=== PATIENT | female | born 1945 | race Caucasian/White ===

== ENCOUNTER 2016-11-16 18:25 | Inpatient (IN) ==
[2016-11-16] MEDS: NS 1,000 ML IV SCH ×2 (18:35→22:52)
[2016-11-16] MEDS ORDERED: ACETAMINOPHEN 500 MG TABLET PO PRN ×2 (18:59→20:59)
--- NOTE | 2016-11-16 19:05 | Emergency Department Report ---
Altered Mental Status HPI - General Chief Complaint: Altered Mental Status Stated Complaint: decreased loc - History of Present Illness HPI narrative: Patient presented by EMS with complaint by her family that she has had a cough for several days, then tonight had a sudden decreased level of consciousness. Patient was talking normally, and then around 5 PM had the sudden onset of decreased level of consciousness and was not able to verbalize to her family. When EMS arrived, they found the patient with minutes level of responsiveness, fever of 102, and no other distresses. complaint: altered mental status Onset (ago): hour(s) Timing confirmed by: family member Severity: severe Consistency of symptoms: constant Context: unknown Associated symptoms: cough, fever - Related Data Home Medications Medication Instructions Recorded Confirmed Zonisamide 200 mg PO HS #0 05/09/14 11/16/16 Warfarin 1.5 mg PO Q3D 11/16/16 11/16/16 Warfarin [Coumadin] 3 mg PO Q2D 11/16/16 11/16/16 Allergies Allergy/AdvReac Type Severity Reaction Status Date / Time ibuprofen Allergy Intermediate GI BLEEDING Verified 11/16/16 18:44 aspirin Allergy Unknown BLEEDING Verified 11/16/16 20:00 Review of Systems All systems: reviewed and negative except as stated Constitutional: Reports: fever Respiratory: Reports: cough Neurological: Reports: confusion PFSH Metabolic: diabetes (type II, diet controlled), hypertension Cardiac: other, DENIES: angina Respiratory: pulmonary embolus, DENIES: COPD, asthma GI: DENIES: ulcers Female: pyelonephritis, renal failure Neurological: seizures Musculoskeletal: DENIES: rheumatoid arthritis Psychological: dementia Surgical History: General: exploratory laparotomy, other (colonoscopy). Reproductive/: hysterectomy Physical Exam - Limitations Limitations: altered mental status - General General appearance: in no apparent distress, lethargic - Normal Exams: Head:: Normocephalic without trauma Eyes:: Pupils are PERRLA w/ EOMI, No scleral icterus, irritation, or foreign bodies noted ENMT:: No facial trauma, nasal exudates, pharyngeal erythema, or exudates are noted Neck:: Full range of motion, without adenopathy, JVD, bruits or thyromegaly Cardiovascular:: Regular rate and rhythm, without murmur or gallop, Pulses 2+ all extremities, capillary refill, <2 seconds all extremities Abdomen:: Bowel sounds positive, soft, non-tender, non-distended, no hepatosplenomegaly, masses or bruits noted Lymphatic:: No lymphadenopathy, or lymphedema noted Musculoskeletal:: No tenderness, or deformity noted, good range of motion, all extremities Integumentary:: No rashes, hives, or bruising noted, hair and nails, without abnormality Neurological:: Patient is alert, and oriented, cranial nerves, motor/sensory/ cerebellar, exams w/o gross deficits, to observation Psychiatric:: Patient exhibits, appropriate attention, emotion and affect - Chest Chest inspection: Present: normal inspection (course rhonchi bilaterally, no wheezes no crackles), symmetric chest wall rise. Absent: tenderness, abscess Course Course Narrative: Patient given Tylenol 1000 mg by mouth, 1 L normal saline IV fluid bolus Vital Signs Temperature 101 F H 11/16/16 18:36 Pulse Rate 110 H 11/16/16 18:36 Respiratory Rate 25 H 11/16/16 18:36 Blood Pressure 134/72 11/16/16 18:36 Pulse Oximetry 100 11/16/16 18:36 Temperature 101 F H 11/16/16 18:36 Pulse Rate 110 H 11/16/16 18:36 Respiratory Rate 25 H 11/16/16 18:36 Blood Pressure 134/72 11/16/16 18:36 Pulse Oximetry 100 11/16/16 18:36 Altered Mental Status - [facility] Narrative Medical decision making narrative: CBC is essentially normal, CMP shows mild elevation in urine, creatinine 1.2. Pro-calcitonin is normal, lactate pending at this time. Chest x-ray shows mild right lower lobe consolidation pericardium with mild effusion. Patient is started on IV Rocephin 1 g IV, Zithromax as ordered but not given in the ER. Case is discussed with Dr. Monge, will make the patient admission for a right lower lobe pneumonia with servers Patient is also given acetaminophen 1 g IV, Toradol 30 mg IV, and INR is ordered in the ER. - Lab Data Result diagrams: 11/16/16 18:43 11/16/16 18:43 Lab Results 11/16/16 Range/Units 18:43 WBC 10.1 (4.5-11.0) T/MM3 RBC 5.34 H (4.00-5.20) M/MM3 Hgb 14.6 (12-16) GM/DL Hct 46.7 H (36-46) % MCV 87.5 (80-100) UM3 MCH 27.3 (26-34) UUG MCHC 31.3 (31-37) GM/DL RDW Std Deviation 54.2 H (36.9-50.2) FL Plt Count 80 L (130-400) T/MM3 MPV 10.8 (9.4-12.4) UM3 Immature Gran % (Auto) 0.3 (0.0-0.5) % Neut % (Auto) 77.6 H (33-66) % Lymph % (Auto) 13.3 L (23-45) % [place] % (Auto) 7.9 (0-9.0) % Eos % (Auto) 0.6 (0-4) % Baso % (Auto) 0.3 (0-2) % Neut # 7.8 H (1.8-7.7) T/MM3 Lymph # 1.3 (1-4.8) T/MM3 [place] # 0.8 (0-0.8) T/MM3 Eos # 0.1 (0-0.5) T/MM3 Baso # 0.0 (0-0.2) T/MM3 Abs Immat Gran (auto) 0.03 (0.00-0.03) T/MM3 Critical Care Time Critical Care Time: Yes Total Critical Care Time: 40 Attestation: Patient required vehicle care for pneumonia with serves, tachycardia, hypoxemia , fever, and altered level of consciousness. Disposition Clinical Impression: Right lower lobe pneumonia, SIRS (systemic inflammatory response syndrome) Disposition: 02 To [facility] Acute Care Condition: Improved Prescriptions: No Action Warfarin [Coumadin] 3 mg PO Q2D Warfarin 1.5 mg PO Q3D Zonisamide 200 mg PO HS #0 Referrals: Jaiden Chairez II, MD [Family Provider] - - Seen By: physician
[2016-11-16] MEDS ORDERED: CEFTRIAXONE 2 GM INJECTION IV SCH (20:00)
[2016-11-16] MEDS ORDERED: AZITHROMYCIN IV 500 MG in NS 250ml 250 ML IV SCH (20:00)
[2016-11-16] MEDS ORDERED: ACETAMINOPHEN IV 1,000 MG/100 ML VIAL IV ONE (20:05)
[2016-11-16] MEDS ORDERED: NS 1,000 ML IV SCH (20:15)
[2016-11-16] MEDS ORDERED: WARFARIN 3 MG TABLET PO SCH (20:30)
--- NOTE | 2016-11-16 20:48 | History & Physical Report ---
History of Present Illness Date: Chief complaint: Depressed LOC HPI: 72 year old female with a known history of dementia presents the to ED tonight with reports of decreased LOC. She lives at home with her family. EMS was called out to the house due to the decreased LOC. She was noted to be febrile there with a temp of 102. She apparently has had a cough and fever for a few days now. Upon arrival, she was noted to be hypoxemic. She is presently on 2L NC02 with sats in the upper 90s by report upon admit to the floor. BP is stable. A CXR shows a right middle lobe infiltrate. She has been given rocephin and azithromycin. A lactate and procalcitonin are not elevated. She has also been given IVF. She is now in the process of admission to the medical floor for further eval and treatment. She meets sepsis criteria based on temp, HR, RR. [facility] Patient Stated Medical History Dementia Yes Dysphagia Yes Cardiac Arrhythmia Yes Hypertension Yes Diabetes Mellitus Type 2 Yes: DIET Other GI Yes: COLOSTOMY Hx Urinary Tract Infection Yes Clotting Problems Yes Sepsis Yes Surgical History: General: exploratory laparotomy, other (colonoscopy). Reproductive/: hysterectomy Smoking status: Never smoker Medications Home Medications Medication Instructions Recorded Confirmed Type Zonisamide 200 mg PO HS #0 05/09/14 11/16/16 History Warfarin 1.5 mg PO Q3D 11/16/16 11/16/16 History Warfarin [Coumadin] 3 mg PO Q2D 11/16/16 11/16/16 History Allergies Allergy/AdvReac Type Severity Reaction Status Date / Time ibuprofen Allergy Intermediate GI BLEEDING Verified 11/16/16 18:44 aspirin Allergy Unknown BLEEDING Verified 11/16/16 20:00 Exam Vital Signs: Temp Pulse Resp BP Pulse Ox 101 F H 110 H 25 H 134/72 100 11/16/16 18:36 11/16/16 18:36 11/16/16 18:36 11/16/16 18:36 11/16/16 18:36 Height: 1.68 m Weight: 80.2 kg - Constitutional Present: obese, disheveled - Routine HEENT Exam Head: Present: normocephalic, atraumatic - Routine Neck Exam Present: supple. Absent: JVD - Routine Respiratory Exam Present: decreased breath sounds. Absent: accessory muscle use - Routine Cardiovascular Exam Present: RRR, S1, S2 - Routine Abdominal Exam Present: soft, normoactive bowel sounds. Absent: tenderness, non distended - Routine Extremities Exam Absent: edema - Routine Skin Exam Absent: rash - Routine Neurological Exam Nonverbal Results - Labs CBC & Chem 7: 11/16/16 18:43 11/16/16 18:43 Labs: Short CBC 11/16/16 Range/Units 18:43 WBC 10.1 (4.5-11.0) T/MM3 Hgb 14.6 (12-16) GM/DL Hct 46.7 H (36-46) % Plt Count 80 L (130-400) T/MM3 BMP 11/16/16 18:43 Sodium 152 H Potassium 3.4 L Chloride 117 H Carbon Dioxide 23 BUN 19.0 H Creatinine 1.2 Glucose 165 H Calcium 9.3 Liver Function 11/16/16 Range/Units 18:43 Total Bilirubin 1.00 (0.20-1.30) MG/DL AST 27 (14-36) U/L ALT 33 (9-52) U/L Alkaline Phosphatase 104 (38-126) U/L Albumin 3.9 (3.5-5.0) G/DL Urine 11/16/16 Range/Units 19:46 Urine Color Yellow (YELLOW) Urine Clarity Sl cloudy Urine pH 5.5 (5.0-8.0) Ur Specific [place] 1.025 (1.015-1.025) Urine Protein 2+ A (NEGATIVE) Urine Glucose (UA) Negative (NEGATIVE) Assessment and Plan Assessment and Plan: 1. Sepsis in the setting of acute community acquired pneumonia of the right middle/lower lobe--present on admit 2. Metabolic encephalopathy secondary to above, on chronic dementia--present on admit 3. History of PE on coumadin therapy 4. Dementia 5. Seizure disorder on chronic AED therapy 6. DM2 by documentation Plan Patient will be placed under full admit status to the medical floor. Will plan to continue rocephin and azithromycin, need to monitor culture data. I have asked for an INR now. Will repeat labs in AM. Continue coumadin, home AED regimen. Will provide level 1 SSI protocol, and follow accuchecks. Diabetic diet. A daughter is present at the bedside and identifies herself as DPOA. She desires full code status. Sepsis Assessment - Evaluation Confirmed Suspected Infection: Yes SIRS Criteria: temperature > or equal to 100.4, pulse > or equal to 90 beats/ minute Severe Sepsis: none seen - Focused Exam Vital Signs Temp Pulse Resp BP Pulse Ox 11/16/16 18:36 101 F H 110 H 25 H 134/72 100 Hospital Course Summary Disclaimer: The visit summary below is not to be considered part of the above Progress Note.
[2016-11-16] MEDS ORDERED: GLUCOSE ORAL GEL 40% 37.5gm PO PRN (20:59)
[2016-11-16] MEDS ORDERED: ONDANSETRON 4 MG/2 ML INJECTION IVP PRN (20:59)
[2016-11-16] MEDS ORDERED: DEXTROSE 50% SYRINGE 50ml (1 AMP) IVP PRN (20:59)
[2016-11-16] MEDS ORDERED: ZONISAMIDE 100 MG CAPSULE PO SCH (22:00)
--- NOTE | 2016-11-17 07:46 | XRay Report ---
Indication: FEVER, COUGH PROCEDURE: XR chest 1V: Encounter: Initial Comparison: May 09, 2014 Findings: Mild elevation of the right hemidiaphragm. Faint airspace opacity in both lower lobes. Upper lung edmondson are clear. No pneumothorax. Heart size is stable. Mediastinal contours and pulmonary vascularity are stable. Impression: Lower lobe airspace disease could be due to pneumonia, aspiration or atelectasis. .
--- NOTE | 2016-11-17 07:49 | CT Scan Report ---
Indication: DECREASED LOC, PROCEDURE: CT head/brain wo con: Encounter: Initial Comparison: Head CT dated May 09, 2014 Technique: Axial CT images through the head were performed without contrast. Iterative Reconstruction dose reducing technique was utilized. FINDINGS: Mild generalized atrophy. The ventricles are of normal size, shape, and contour for the patient's age. There are extensive areas of low attenuation in the white matter which most likely represent changes from chronic microvascular ischemia. The brainstem, cerebellum, and cerebral hemispheres otherwise have a normal morphology and CT attenuation. There is no evidence of midline displacement. No hemorrhage, signs of acute territorial stroke, mass effect, mass lesions, or edema is evident. The visualized portions of the skull base, midface, and calvarium demonstrate no abnormality. Chronic appearing right maxillary sinusitis. The tympanic and mastoid cavities appear normal. IMPRESSION: No acute intracranial abnormality or hemorrhage. Chronic right maxillary sinusitis. There is a preliminary report by [facility]. .
--- NOTE | 2016-11-17 07:56 | XRay Report ---
Indication: pneumonia PROCEDURE: XR chest 1V: Encounter: Initial Comparison: November 16, 2016 Findings: Chest is stable in appearance with some hazy bibasilar infiltrates. Mild motion artifact. No pneumothorax. New small pleural effusions. Heart size and mediastinal contours are stable. Pulmonary vascularity is indistinct due to the motion artifact. Impression: Continued lower lobe infiltrates with new small effusions. .
[2016-11-17] MEDS: NS 1,000 ML IV SCH ×2 (07:57→13:17)
[2016-11-17] MEDS ORDERED: BISACODYL 10 MG SUPPOSITORY RECTALLY PRN (12:31)
[2016-11-17] MEDS: 1/2 NS with KCL 20mEq 1,000 ML IV SCH (13:15)
[2016-11-17] MEDS ORDERED: IPRATROPIUM/ALBUTEROL 2.5mg-0.5mg/3ml NEB AEROSOL SCH (15:00)
[2016-11-17] MEDS ORDERED: ACETAMINOPHEN 325 MG TABLET PO PRN (16:30)
--- NOTE | 2016-11-17 16:59 | Pharmacy Consult ---
Pharmacy Consult-Warfarin - Laboratory Information 11/17/16 04:44 INR 2.12 H - Consult Information 71 y.o. Female with a history of A. Fib and chronic anticoagulation with Warfarin. goal INR= 2.0 to 3.0. Will give Warfarin 2 mg po today. Pharmacy will monitor and adjust as needed. Thank you for the consult, Lucrecia Rogers RPh
[2016-11-17] MEDS: WARFARIN 2 MG TABLET PO ONE ×2 (18:00→20:16)
[2016-11-17] MEDS: INSULIN ASPART 100unit/ml INJECTION SQ PRN (18:00)
--- NOTE | 2016-11-17 19:25 | Progress Note ---
Subjective: F/U: Sepsis, pneumonia Resting in bed. Nursing reports pt able to take oral in well (when awake and alert). Did have episode of 'freezing up' - stopped eating with mouth open and stared off into space, lasted about 50 seconds. Breathing looks more comfortable this evening as compared to earlier. Lungs much less congested. Objective Vital signs: Temp Pulse Resp BP Pulse Ox 100.1 F 109 H 20 125/65 97 11/17/16 16:00 11/17/16 16:00 11/17/16 16:00 11/17/16 16:00 11/17/16 15:01 Weight: 83.5 kg - Constitutional Present: mild distress, well nourished, well developed, obese, disheveled - Routine HEENT Exam Head: Present: normocephalic, atraumatic Eye: Present: EOMI ENT: Present: mucous membranes dry - Routine Respiratory Exam Present: decreased breath sounds (Improving air movement. Less effort and work for breathing. ), prolonged expiratory phase - Routine Cardiovascular Exam Present: RRR - Routine Abdominal Exam Present: soft, normoactive bowel sounds, non distended, non tender - Routine Extremities Exam Present: no edema, non tender. Absent: cyanosis, clubbing - Routine Skin Exam Present: intact, dry, warm - Routine Psychiatric Exam Present: unable to assess (Somnolent at my exam. ) Results - Labs CBC & Chem 7: 11/17/16 04:44 11/17/16 04:44 Labs: Short CBC 11/17/16 Range/Units 04:44 WBC 9.2 (4.5-11.0) T/MM3 Hgb 13.7 (12-16) GM/DL Hct 44.7 (36-46) % Plt Count 80 L (130-400) T/MM3 BMP 11/17/16 04:44 Sodium 155 H Potassium 3.4 L Chloride 120 H Carbon Dioxide 22 BUN 16.0 Creatinine 1.1 Glucose 123 H Calcium 8.7 Assessment and Plan (1) Sepsis Current visit: Yes Status: Acute (2) Pneumonia Current visit: Yes Status: Acute (3) Acute respiratory insufficiency Current visit: Yes Status: Acute (4) Encephalopathy Current visit: Yes Status: Acute (5) Hypernatremia Current visit: Yes Status: Acute POA (6) Hypokalemia Current visit: Yes Status: Acute POA (7) Type II diabetes mellitus Current visit: Yes Status: Chronic (8) HTN (hypertension) Current visit: Yes Status: Chronic (9) Hyperlipidemia Current visit: Yes Status: Chronic (10) Paroxysmal atrial fibrillation Current visit: Yes Status: Chronic (11) Anticoagulated on Coumadin Current visit: Yes Status: Chronic (12) Seizure disorder Current visit: Yes Status: Chronic (13) Obesity (BMI 30-39.9) Current visit: Yes Status: Chronic DVT Prophylaxis: Coumadin Resuscitation Status: Full Code Assessment and Plan: Continue Rocephin and azithromycin for antimicrobial coverage. Change IVF to 1/2NS with 20 KCl for hydration and to help normalize sodium and potassium. Speech consult to check swallow in light of encephalopathy. Continue with supplemental O2, weaning as able. Daily INR due to Coumadin use and sepsis - Pharm to manage. Recheck BMP and CBC in am due to sepsis and IVF use. Will need PT/OT to help strength, once encephalopathy improves . Sepsis Assessment - Evaluation Sepsis screening result: No Definite Risk SIRS Criteria: temperature > or equal to 100.4, pulse > or equal to 90 beats/ minute Severe Sepsis: none seen - Focused Exam Vital Signs Temp Pulse Resp BP Pulse Ox 11/17/16 16:00 100.1 F 109 H 20 125/65 11/17/16 15:01 20 97 11/17/16 12:06 18 92 11/17/16 12:00 101 F H 98 129/58 97 11/17/16 11:39 101.8 F H 103 H 24 93 11/17/16 08:00 101.8 F H 103 H 24 149/62 H 93 Respiratory exam: Present: decreased breath sounds. Absent: accessory muscle use Cardiovascular exam: Present: RRR, S1, S2 Hospital Course Summary Disclaimer: The visit summary below is not to be considered part of the above Progress Note. Hospital Course: 11/16 Admit Patient will be placed under full admit status to the medical floor. Will plan to continue Rocephin and azithromycin, need to monitor culture data. I have asked for an INR now. Will repeat labs in AM. Continue Coumadin, home AED regimen. Will provide level 1 SSI protocol, and follow accuchecks. Diabetic diet. A daughter is present at the bedside and identifies herself as DPOA. She desires full code status. 11/17 Resting in bed. Nursing reports pt able to take oral in well (when awake and alert). Did have episode of 'freezing up' - stopped eating with mouth open and stared off into space, lasted about 50 seconds. Breathing looks more comfortable this evening as compared to earlier. Lungs much less congested. Continue Rocephin and azithromycin for antimicrobial coverage. Change IVF to 1/2NS with 20 KCl for hydration and to help normalize sodium and potassium. Speech consult to check swallow in light of encephalopathy. Continue with supplemental O2, weaning as able. Daily INR due to Coumadin use and sepsis - Pharm to manage. Recheck BMP and CBC in am due to sepsis and IVF use. Will need PT/OT to help strength, once encephalopathy improves .
[2016-11-17] MEDS: IPRATROPIUM/ALBUTEROL 2.5mg-0.5mg/3ml NEB AEROSOL PRN (19:37)
[2016-11-17] MEDS ORDERED: CEFTRIAXONE 1 G in NS 100 ML IV SCH (20:00)
[2016-11-17] MEDS ORDERED: CEFTRIAXONE 2 GM INJECTION IV SCH (20:00)
[2016-11-17] MEDS: AZITHROMYCIN IV 500 MG in NS 250ml 250 ML IV SCH (20:55)
[2016-11-18] MEDS: 1/2 NS with KCL 20mEq 1,000 ML IV SCH (04:46)
[2016-11-18] MEDS: IPRATROPIUM/ALBUTEROL 2.5mg-0.5mg/3ml NEB AEROSOL PRN (07:19)
--- NOTE | 2016-11-18 08:29 | Pharmacy Consult ---
Pharmacy Consult-Warfarin - Laboratory Information 11/17/16 11/17/16 11/18/16 04:44 20:36 04:29 INR 2.12 H 1.66 H 1.51 H - Consult Information Warfarin 2 mg dose attempted yesterday but not given (DLOC). Ms Jacques to be placed on enoxaparin today. Will attempt to give 3mg dose today,. Will continue to monitor and adjust accordingly. Thank you.
[2016-11-18] MEDS: ENOXAPARIN 80 MG/0.8 ML INJECTION SQ SCH ×2 (08:54→22:09)
[2016-11-18] MEDS: WARFARIN 3 MG TABLET PO SCH ×2 (08:54→11:07)
[2016-11-18] MEDS: POTASSIUM CHLORIDE INJ 20 MEQ in D5W 1,000 ML IV SCH (09:59)
--- NOTE | 2016-11-18 10:12 | Progress Note ---
Subjective: Fatimah is laying in bed watching TV this morning. She is alert and does respond to questions but is confused. She does state that she has pain but does not state where she is hurting. Is on 1L O2 per NC. Is in NAD at this time. She has been refusing her medication per nursing staff and did miss last nights dose of Warfarin. They did attempt to give this morning but she had refused again. <Mali Castaneda - 11/18/16 10:21> Objective Vital signs: Temp Pulse Resp BP Pulse Ox 96.4 F L 86 18 115/64 96 11/18/16 07:28 11/18/16 07:28 11/18/16 07:28 11/18/16 07:28 11/18/16 07:28 <Abhilash Hernandes - 11/18/16 14:11> Temp Pulse Resp BP Pulse Ox 96.4 F L 86 18 115/64 96 11/18/16 07:28 11/18/16 07:28 11/18/16 07:28 11/18/16 07:28 11/18/16 07:28 <Mali Castaneda Bernice - 11/18/16 10:21> Weight: 84.3 kg <Mali Castaneda 11/18/16 10:21> - Constitutional Present: no acute distress, well nourished, well developed, obese <Mali Castaneda 11/18/16 10:21> - Routine HEENT Exam Eye: Present: EOMI, PERRL <ShaniquareddMali Bernice 11/18/16 10:21> ENT: Present: mucous membranes moist, oropharynx clear, dentition normal, external ear normal <TonyaMali Queen 11/18/16 10:21> - Routine Respiratory Exam Present: decreased breath sounds (but does not have great inspiratory effort despite encouragement. No respiratory distress) <ShaniquareddMali Queen 11/18/16 10: 21> - Routine Cardiovascular Exam Present: RRR, S1, S2 <ShaniquareddMali Queen 11/18/16 10:21> - Routine Abdominal Exam Present: soft, normoactive bowel sounds, non distended. Absent: tenderness < ShaniquareddMali Bernice 11/18/16 10:21> - Routine Extremities Exam Present: no edema, pulses intact, normal capillary refill. Absent: edema < Mali Castaneda N - 11/18/16 10:21> - Routine Skin Exam Present: intact, warm. Absent: rash <Mali Castaneda N - 11/18/16 10:21> - Routine Neurological Exam Present: alert, altered mental status <Mali Castaneda - 11/18/16 10:21> - Routine Lymphatic Exam Lymphatic: Present: adenopathy <Mali Castaneda N - 11/18/16 10:21> - Routine Psychiatric Exam Present: normal affect <Mali Castaneda N - 11/18/16 10:21> Results - Labs CBC & Chem 7: 11/18/16 04:29 11/18/16 04:29 <Abhilash Hernandes D - 11/18/16 14:11> Labs: Short CBC 11/18/16 Range/Units 04:29 WBC 7.7 (4.5-11.0) T/MM3 Hgb 11.4 L D (12-16) GM/DL Hct 37.2 D (36-46) % Plt Count 75 L (130-400) T/MM3 [facility] 11/18/16 04:29 Sodium 156 H Potassium 3.5 L Chloride 123 H Carbon Dioxide 23 BUN 16.0 Creatinine 1.2 Glucose 90 Calcium 8.7 <Abhilash Hernandes D - 11/18/16 14:11> Short CBC 11/18/16 Range/Units 04:29 WBC 7.7 (4.5-11.0) T/MM3 Hgb 11.4 L D (12-16) GM/DL Hct 37.2 D (36-46) % Plt Count 75 L (130-400) T/MM3 [facility] 11/18/16 04:29 Sodium 156 H Potassium 3.5 L Chloride 123 H Carbon Dioxide 23 BUN 16.0 Creatinine 1.2 Glucose 90 Calcium 8.7 <Mali Castaneda N - 11/18/16 10:21> Assessment and Plan (1) Sepsis Current visit: Yes Status: Acute (2) Pneumonia Current visit: Yes Status: Acute (3) Acute respiratory insufficiency Current visit: Yes Status: Acute (4) Encephalopathy Current visit: Yes Status: Acute (5) Hypernatremia Current visit: Yes Status: Acute (6) Hypokalemia Current visit: Yes Status: Acute (7) Type II diabetes mellitus Current visit: Yes Status: Chronic (8) HTN (hypertension) Current visit: Yes Status: Chronic (9) Hyperlipidemia Current visit: Yes Status: Chronic (10) Paroxysmal atrial fibrillation Current visit: Yes Status: Chronic (11) Anticoagulated on Coumadin Current visit: Yes Status: Chronic (12) Seizure disorder Current visit: Yes Status: Chronic (13) Obesity (BMI 30-39.9) Current visit: Yes Status: Chronic <Abhilash Hernandes - 11/18/16 14:11> Assessment and Plan: Have independently interviewed and examined pt. Chart reviewed. Case discussed with my SIMULATION SPECIALIST. Care plan developed with my supervision; agree with above (and below, as WebMD puts this narrative in an odd place). Resting in bed. Awake and will make eye contact. Non-verbal. Follows commands intermittently. Breathing comfortable on room air. Lungs: decreased, improving air movement. No distress on RA CV: regular AB: soft nt/nd BS present EXT: no edema MSE: awake, non-verbal Plan: Continue with Rocephin and azithromycin for pulmonary coverage. IVF change to D5W with 20KCl at 75cc/hr due to persistent hypernatremia. Lovenox started as INR sub-therapeutic. Consult placed for PT/OT for tomorrow. Monitor O2 sat off of O2. Monitor lab. Continue with supportive care. <Abhilash Hernandes - 11/18/16 14:10> Continue Rocephin and azithromycin for antimicrobial coverage. Change IVF to 1/2NS with 20 KCl for hydration and to help normalize sodium and potassium. Speech consult to check swallow in light of encephalopathy. Continue with supplemental O2, weaning as able. Daily INR due to Coumadin use and sepsis - Pharm to manage. Recheck BMP and CBC in am due to sepsis and IVF use. Will need PT/OT to help strength, once encephalopathy improves . <Mali Castaneda - 11/18/16 10:21> Sepsis Assessment - Evaluation Sepsis screening result: No Definite Risk <Mali Castaneda - 11/18/16 10:21> SIRS Criteria: temperature > or equal to 100.4, pulse > or equal to 90 beats/ minute <Mali Castaneda - 11/18/16 10:21> Severe Sepsis: none seen <Mali Castaneda Bernice - 11/18/16 10:21> - Focused Exam Vital Signs Temp Pulse Resp BP Pulse Ox 11/18/16 07:28 96.4 F L 86 18 115/64 96 11/18/16 07:14 18 97 <Abhilash Hernandes Noé - 11/18/16 14:11> Vital Signs Temp Pulse Resp BP Pulse Ox 11/18/16 07:28 96.4 F L 86 18 115/64 96 11/18/16 07:14 18 97 11/17/16 23:36 98.2 F 72 18 105/63 99 <Mali Castaneda Bernice - 11/18/16 10:21> Respiratory exam: Present: decreased breath sounds. Absent: accessory muscle use <Mali Castaneda Bernice - 11/18/16 10:21> Cardiovascular exam: Present: RRR, S1, S2 <Mali Castaneda Bernice - 11/18/16 10:21> Hospital Course Summary Disclaimer: The visit summary below is not to be considered part of the above Progress Note. <CecilioAbhilash cain Noé - 11/18/16 14:11> The visit summary below is not to be considered part of the above Progress Note. <Mali Castaneda Bernice - 11/18/16 10:21> Hospital Course: 11/16 Admit Patient will be placed under full admit status to the medical floor. Will plan to continue Rocephin and azithromycin, need to monitor culture data. I have asked for an INR now. Will repeat labs in AM. Continue Coumadin, home AED regimen. Will provide level 1 SSI protocol, and follow accuchecks. Diabetic diet. A daughter is present at the bedside and identifies herself as DPOA. She desires full code status. 6/6 Resting in bed. Nursing reports pt able to take oral in well (when awake and alert). Did have episode of 'freezing up' - stopped eating with mouth open and stared off into space, lasted about 50 seconds. Breathing looks more comfortable this evening as compared to earlier. Lungs much less congested. Continue Rocephin and azithromycin for antimicrobial coverage. Change IVF to 1/2NS with 20 KCl for hydration and to help normalize sodium and potassium. Speech consult to check swallow in light of encephalopathy. Continue with supplemental O2, weaning as able. Daily INR due to Coumadin use and sepsis - Pharm to manage. Recheck BMP and CBC in am due to sepsis and IVF use. Will need PT/OT to help strength, once encephalopathy improves . 11/18 Did eat well for lunch and dinner yesterday but did not take her Warfarin last night or again this morning when offered. Pharmacy is managing Warfarin. INR this morning was 1.51 and did speak with Alexis in pharmacy. Will start her on Lovenox BID to bridge until she is taking her Warfarin and her INR is back up to theraputic range. Na today is up to 156, IVF changed to D5W with 20KCL to help decrease. K+-3.5 today. Continue with Rocephin and Azithromycin (day 3) and try to wean O2. She is on 1L per NC during exam. No respiratory distress noted and she did speak some during exam. Has not been very interactive with staff. Continues to be somewhat confused. Will recheck labs in the morning given change in IVF. PT/OT when more alert. <Mali Castaneda - 11/18/16 10:21>
[2016-11-18] MEDS: AMPICILLIN 2 GM in NS 100 ML IV SCH ×2 (15:59→22:08)
[2016-11-18] MEDS: AZITHROMYCIN IV 500 MG in NS 250ml 250 ML IV SCH (20:21)
[2016-11-19] MEDS: AMPICILLIN 2 GM in NS 100 ML IV SCH ×4 (03:02→22:33)
[2016-11-19] MEDS: POTASSIUM CHLORIDE INJ 20 MEQ in D5W 1,000 ML IV SCH ×3 (03:02→23:27)
--- NOTE | 2016-11-19 09:08 | Progress Note ---
<Darling Shen - Last Filed: 11/19/16 09:05> Subjective: Fatimah was seen during her PT/OT evaluation. She was very stiff and required full assistance to sit up in bed. She was nonverbal but offered a smile occasionally. She was not in any acute distress and is on room air this morning. She has had some urinary retention; good output from colostomy per nurses. Objective Vital signs: Temp Pulse Resp BP Pulse Ox 97.9 F 68 18 133/79 95 11/19/16 08:00 11/19/16 08:00 11/19/16 08:00 11/19/16 08:00 11/19/16 08:00 Weight: 84.1 kg - Constitutional Present: no acute distress, well nourished, well developed, obese - Routine HEENT Exam Head: Present: normocephalic ENT: Present: mucous membranes moist - Routine Respiratory Exam Present: diminished air movement (posterior bases) - Routine Cardiovascular Exam Present: S1, S2 - Routine Extremities Exam Present: no edema, normal capillary refill. Absent: clubbing - Routine Musculoskeletal Exam Musculoskeletal: no tenderness, limited range of motion - Routine Skin Exam Present: intact, dry, warm - Routine Neurological Exam Present: alert (to self only) - Routine Psychiatric Exam Present: unable to assess Results - Labs CBC & Chem 7: 11/19/16 07:53 11/19/16 07:53 Assessment and Plan (1) Sepsis Current visit: Yes Status: Acute (2) Pneumonia Current visit: Yes Status: Acute (3) Acute respiratory insufficiency Current visit: Yes Status: Acute (4) Hypernatremia Current visit: Yes Status: Acute POA (5) Hypokalemia Current visit: Yes Status: Acute POA (6) Encephalopathy Current visit: Yes Status: Acute (7) Type II diabetes mellitus Current visit: Yes Status: Chronic (8) HTN (hypertension) Current visit: Yes Status: Chronic (9) Hyperlipidemia Current visit: Yes Status: Chronic (10) Paroxysmal atrial fibrillation Current visit: Yes Status: Chronic (11) Anticoagulated on Coumadin Current visit: Yes Status: Chronic (12) Seizure disorder Current visit: Yes Status: Chronic (13) Obesity (BMI 30-39.9) Current visit: Yes Status: Chronic (14) Thrombocytopenia Current visit: Yes Status: Chronic Assessment and Plan: Sepsis secondary to pneumonia: continue Rocephin and azithromycin. Weaned off O2 this am. Hypernatremia: Na improved to 151. Continue D5W with KCl but decrease rate to 50 ml/hr to reduce risk of overload. PT/OT evaluation: recommendations pending INR pending this am: She was subtherapeutic yesterday and received Lovenox. Thrombocytopenia: in review of old records, this is not a new problem. DM2: glucose under good control. Will discuss further with attending. Sepsis Assessment - Evaluation Sepsis screening result: No Definite Risk SIRS Criteria: temperature > or equal to 100.4, pulse > or equal to 90 beats/ minute Severe Sepsis: none seen - Focused Exam Vital Signs Temp Pulse Resp BP Pulse Ox 11/19/16 08:00 97.9 F 68 18 133/79 95 11/19/16 00:00 97.9 F 86 18 148/67 H 92 Respiratory exam: Present: decreased breath sounds. Absent: accessory muscle use Cardiovascular exam: Present: RRR, S1, S2 Hospital Course Summary Disclaimer: The visit summary below is not to be considered part of the above Progress Note. Hospital Course: 11/16/16 Admit Patient will be placed under full admit status to the medical floor. Will plan to continue Rocephin and azithromycin, need to monitor culture data. I have asked for an INR now. Will repeat labs in AM. Continue Coumadin, home AED regimen. Will provide level 1 SSI protocol, and follow accuchecks. Diabetic diet. A daughter is present at the bedside and identifies herself as DPOA. She desires full code status. 11/17/16 Resting in bed. Nursing reports pt able to take oral in well (when awake and alert). Did have episode of 'freezing up' - stopped eating with mouth open and stared off into space, lasted about 50 seconds. Breathing looks more comfortable this evening as compared to earlier. Lungs much less congested. Continue Rocephin and azithromycin for antimicrobial coverage. Change IVF to 1/2NS with 20 KCl for hydration and to help normalize sodium and potassium. Speech consult to check swallow in light of encephalopathy. Continue with supplemental O2, weaning as able. Daily INR due to Coumadin use and sepsis - Pharm to manage. Recheck BMP and CBC in am due to sepsis and IVF use. Will need PT/OT to help strength, once encephalopathy improves . 11/18/16 Did eat well for lunch and dinner yesterday but did not take her Warfarin last night or again this morning when offered. Pharmacy is managing Warfarin. INR this morning was 1.51 and did speak with Alexis in pharmacy. Will start her on Lovenox BID to bridge until she is taking her Warfarin and her INR is back up to theraputic range. Na today is up to 156, IVF changed to D5W with 20KCL to help decrease. K+-3.5 today. Continue with Rocephin and Azithromycin (day 3) and try to wean O2. She is on 1L per NC during exam. No respiratory distress noted and she did speak some during exam. Has not been very interactive with staff. Continues to be somewhat confused. Will recheck labs in the morning given change in IVF. PT/OT when more alert. 11/19/16 Sepsis secondary to pneumonia: continue Rocephin and azithromycin. Weaned off O2 this am. Hypernatremia: Na improved to 151. Continue D5W with KCl but decrease rate to 50 ml/hr to reduce risk of overload. PT/OT evaluation: recommendations pending INR pending this am: She was subtherapeutic yesterday and received Lovenox. Thrombocytopenia: in review of old records, this is not a new problem. DM2: glucose under good control. <Abhilash Hernandes - Last Filed: 11/19/16 17:12> Objective Vital signs: Temp Pulse Resp BP Pulse Ox 98.6 F 75 18 149/88 H 98 11/19/16 15:30 11/19/16 15:30 11/19/16 15:30 11/19/16 15:30 11/19/16 15:30 Results - Labs CBC & Chem 7: 11/19/16 07:53 11/19/16 07:53 Assessment and Plan (1) Sepsis Current visit: Yes Status: Acute (2) Pneumonia Current visit: Yes Status: Acute (3) UTI (urinary tract infection) due to Enterococcus Current visit: Yes Status: Acute (4) Acute respiratory insufficiency Current visit: Yes Status: Acute (5) Hypernatremia Current visit: Yes Status: Acute (6) Hypokalemia Current visit: Yes Status: Acute (7) Encephalopathy Current visit: Yes Status: Acute (8) Type II diabetes mellitus Current visit: Yes Status: Chronic (9) HTN (hypertension) Current visit: Yes Status: Chronic (10) Hyperlipidemia Current visit: Yes Status: Chronic (11) Paroxysmal atrial fibrillation Current visit: Yes Status: Chronic (12) Anticoagulated on Coumadin Current visit: Yes Status: Chronic (13) Seizure disorder Current visit: Yes Status: Chronic (14) Thrombocytopenia Current visit: Yes Status: Chronic (15) Obesity (BMI 30-39.9) Current visit: Yes Status: Chronic Assessment and Plan: Have independently interviewed and examined pt. Chart reviewed. Case discussed with my DRUM OPERATOR. Care plan developed with my supervision; agree with above. Resting soundly this afternoon when I rechecked on her; more away and alert this morning. Nonverbal. Breathing comfortably. Lungs: decreased, no distress. CV: regular AB: soft nt/nd +BS Ext: trace LE edema Lab: sodium decreased to 151. Plan: Continue Ampicillin (Rocephin stopped yesterday due to enterococcus in urine) and azithromycin for pulm and urinary coverage. Continue with E3I-ouch decreased. PT/OT to help increase functional status. Coumadin dosing discussed with pharm - did miss one due initially as pt to ill to take. Monitor lab. Continue with supportive care. Sepsis Assessment - Focused Exam Vital Signs Temp Pulse Resp BP Pulse Ox 11/19/16 15:30 98.6 F 75 18 149/88 H 98 11/19/16 08:00 97.9 F 68 18 133/79 95 Hospital Course Summary Disclaimer: The visit summary below is not to be considered part of the above Progress Note.
[2016-11-19] MEDS: ENOXAPARIN 80 MG/0.8 ML INJECTION SQ SCH ×2 (09:46→21:45)
[2016-11-19] MEDS ORDERED: WARFARIN 5 MG TABLET PO ONE (13:01)
[2016-11-19] MEDS: AZITHROMYCIN IV 500 MG in NS 250ml 250 ML IV SCH (21:16)
[2016-11-20] MEDS: AMPICILLIN 2 GM in NS 100 ML IV SCH ×3 (04:52→14:02)
[2016-11-20] MEDS: POTASSIUM CHLORIDE INJ 20 MEQ in D5W 1,000 ML IV SCH ×2 (06:52→17:22)
[2016-11-20] MEDS: ENOXAPARIN 80 MG/0.8 ML INJECTION SQ SCH ×2 (09:05→20:00)
--- NOTE | 2016-11-20 10:07 | Pharmacy Consult ---
Pharmacy Consult-Warfarin - Laboratory Information 11/17/16 11/17/16 11/18/16 04:44 20:36 04:29 INR 2.12 H 1.66 H 1.51 H 11/19/16 11/20/16 11:43 04:39 INR 1.34 H 1.46 H - Consult Information COUMADIN CONSULT (Recurring): Today's INR = 1.76. Will give Warfarin 5mg today. Will continue to monitor & make adjustments accordingly. Thank you.
[2016-11-20] MEDS ORDERED: WARFARIN 5 MG TABLET PO SCH (12:00)
--- NOTE | 2016-11-20 15:17 | Progress Note ---
<HermelindaDarling D - Last Filed: 11/20/16 15:14> Subjective: Fatimah was resting in bed. She opened her eyes and looked at me briefly when I stated her name, but did not answer any questions or follow commands. Per nursing staff, this is consistent with how she has been interacting with them. She will offer signs of pain such as grimacing when nursing cares are done. She has some redness to buttocks and groin, for which staff has been applying barrier cream and nystatin. She has been eating well. Colostomy with good output. Objective Vital signs: Temp Pulse Resp BP Pulse Ox 98.6 F 64 20 143/73 H 97 11/20/16 08:00 11/20/16 08:00 11/20/16 08:00 11/20/16 08:00 11/20/16 08:00 Weight: 85.2 kg - Constitutional Present: no acute distress, well nourished, well developed, obese - Routine HEENT Exam Eye: Present: PERRL. Absent: conjunctival icterus - Routine Respiratory Exam Present: CTA bilaterally (clear anteriorly) - Routine Cardiovascular Exam Present: S1, S2 - Routine Abdominal Exam Present: soft, normoactive bowel sounds, non tender - Routine Extremities Exam Present: no edema, pulses intact - Routine Musculoskeletal Exam Musculoskeletal: limited range of motion - Routine Skin Exam Present: intact, dry, warm - Routine Neurological Exam Present: alert - Routine Psychiatric Exam Absent: normal affect, normal thought process Results - Labs CBC & Chem 7: 11/20/16 04:39 11/20/16 04:39 Assessment and Plan (1) Sepsis Current visit: Yes Status: Acute (2) Pneumonia Current visit: Yes Status: Acute (3) Acute respiratory insufficiency Current visit: Yes Status: Acute (4) Hypernatremia Current visit: Yes Status: Acute POA (5) Hypokalemia Current visit: Yes Status: Acute POA (6) Encephalopathy Current visit: Yes Status: Acute (7) Type II diabetes mellitus Current visit: Yes Status: Chronic (8) HTN (hypertension) Current visit: Yes Status: Chronic (9) Hyperlipidemia Current visit: Yes Status: Chronic (10) Paroxysmal atrial fibrillation Current visit: Yes Status: Chronic (11) Anticoagulated on Coumadin Current visit: Yes Status: Chronic (12) Seizure disorder Current visit: Yes Status: Chronic (13) Obesity (BMI 30-39.9) Current visit: Yes Status: Chronic (14) Thrombocytopenia Current visit: Yes Status: Chronic (15) UTI (urinary tract infection) due to Enterococcus Current visit: Yes Status: Acute Assessment and Plan: Sepsis secondary to pneumonia: -Rocephin was dc'd on 11/19 due to positive UC with enterococcus - Ampicillin was started instead. -Cont Azithro. -Sepsis syndrome has resolved. Hypernatremia: -Na improved to 149. -Continue D5W with KCl. Hypokalemia: -K decreased to 3.4 - give additional replacement INR: -increased but subtherapeutic at 1.46 -Continue bridging with Lovenox. Thrombocytopenia: -Monitor closely while on Lovenox; platelets 79 today. PT: -pt was unable to stay awake to participate today. OT: -Total assist at home and here in hospital - dismissed because she is at PLOF. Sepsis Assessment - Evaluation Sepsis screening result: No Definite Risk - Focused Exam Vital Signs Temp Pulse Resp BP Pulse Ox 11/20/16 08:00 98.6 F 64 20 143/73 H 97 Respiratory exam: Present: decreased breath sounds. Absent: accessory muscle use Cardiovascular exam: Present: RRR, S1, S2 Capillary refill: < 2-3 Seconds Hospital Course Summary Disclaimer: The visit summary below is not to be considered part of the above Progress Note. Hospital Course: 11/16/16 Admit Patient will be placed under full admit status to the medical floor. Will plan to continue Rocephin and azithromycin, need to monitor culture data. I have asked for an INR now. Will repeat labs in AM. Continue Coumadin, home AED regimen. Will provide level 1 SSI protocol, and follow accuchecks. Diabetic diet. A daughter is present at the bedside and identifies herself as DPOA. She desires full code status. 11/17/16 Resting in bed. Nursing reports pt able to take oral in well (when awake and alert). Did have episode of 'freezing up' - stopped eating with mouth open and stared off into space, lasted about 50 seconds. Breathing looks more comfortable this evening as compared to earlier. Lungs much less congested. Continue Rocephin and azithromycin for antimicrobial coverage. Change IVF to 1/2NS with 20 KCl for hydration and to help normalize sodium and potassium. Speech consult to check swallow in light of encephalopathy. Continue with supplemental O2, weaning as able. Daily INR due to Coumadin use and sepsis - Pharm to manage. Recheck BMP and CBC in am due to sepsis and IVF use. Will need PT/OT to help strength, once encephalopathy improves . 11/18/16 Did eat well for lunch and dinner yesterday but did not take her Warfarin last night or again this morning when offered. Pharmacy is managing Warfarin. INR this morning was 1.51 and did speak with Alexis in pharmacy. Will start her on Lovenox BID to bridge until she is taking her Warfarin and her INR is back up to theraputic range. Na today is up to 156, IVF changed to D5W with 20KCL to help decrease. K+-3.5 today. Continue with Rocephin and Azithromycin (day 3) and try to wean O2. She is on 1L per NC during exam. No respiratory distress noted and she did speak some during exam. Has not been very interactive with staff. Continues to be somewhat confused. Will recheck labs in the morning given change in IVF. PT/OT when more alert. 11/19/16 Sepsis secondary to pneumonia: continue Rocephin and azithromycin. Weaned off O2 this am. Hypernatremia: Na improved to 151. Continue D5W with KCl but decrease rate to 50 ml/hr to reduce risk of overload. PT/OT evaluation: recommendations pending INR pending this am: She was subtherapeutic yesterday and received Lovenox. Thrombocytopenia: in review of old records, this is not a new problem. DM2: glucose under good control. 11/20/16 Sepsis secondary to pneumonia: -Rocephin was dc'd on 11/19 due to positive UC with enterococcus - Ampicillin was started instead. -Cont Azithro. -Sepsis syndrome has resolved. Hypernatremia: -Na improved to 149. -Continue D5W with KCl. Hypokalemia: -K decreased to 3.4 - give additional replacement INR: -increased but subtherapeutic at 1.46 -Continue bridging with Lovenox. Thrombocytopenia: -Monitor closely while on Lovenox; platelets 79 today. PT: -pt was unable to stay awake to participate today. OT: -Total assist at home and here in hospital - dismissed because she is at PLOF. <Jovana Evans - Last Filed: 11/20/16 18:53> Objective Vital signs: Temp Pulse Resp BP Pulse Ox 98.5 F 77 16 146/71 H 98 11/20/16 16:00 11/20/16 16:00 11/20/16 16:00 11/20/16 16:00 11/20/16 16:00 Results - Labs CBC & Chem 7: 11/20/16 04:39 11/20/16 04:39 Assessment and Plan (1) Sepsis Current visit: Yes Status: Acute (2) Pneumonia Current visit: Yes Status: Acute (3) Acute respiratory insufficiency Current visit: Yes Status: Acute (4) Hypernatremia Current visit: Yes Status: Acute (5) Hypokalemia Current visit: Yes Status: Acute (6) Encephalopathy Current visit: Yes Status: Acute (7) Type II diabetes mellitus Current visit: Yes Status: Chronic (8) HTN (hypertension) Current visit: Yes Status: Chronic (9) Hyperlipidemia Current visit: Yes Status: Chronic (10) Paroxysmal atrial fibrillation Current visit: Yes Status: Chronic (11) Anticoagulated on Coumadin Current visit: Yes Status: Chronic (12) Seizure disorder Current visit: Yes Status: Chronic (13) Obesity (BMI 30-39.9) Current visit: Yes Status: Chronic (14) Thrombocytopenia Current visit: Yes Status: Chronic (15) UTI (urinary tract infection) due to Enterococcus Current visit: Yes Status: Acute Assessment and Plan: 11/20/2016-I reviewed this chart, the patient history, and the [employer]'s/PA's documented findings as above. We discussed and formulated the assessment and plan as above with the additions below.-Dr. Evans The patient was seen this evening accompanied by her daughter, son-in-law, and granddaughter and great grandson. They all state she is doing much better. She is more alert and is saying a few more words. She is eating well. She does not like the thickened liquids. They state she is "pretty much back to normal". They state she chronically needs 2 person assist to be up and walk. Her nurse has no concerns. She is taking her medicines with applesauce without difficulties. Vital signs are stable. On exam she is alert and mostly nonverbal. Pupils are equal and sclerae are anicteric. Neck is supple. Chest is clear to auscultation but she cannot deep breathing on command. Cardiovascular reveals a regular rate and rhythm. Abdomen is soft and nontender with positive bowel sounds. Extremities are free of edema. Sodium is improving and is 149. Potassium 3.4. Bicarbonate has improved to 23. Chloride is improving. Regarding UTI with enterococcus, we'll discontinue ampicillin and switch to amoxicillin. Hopefully this should help with sodium as well since the ampicillin was in normal saline. We'll change azithromycin to oral as well. Continue with D5W with potassium IV for now and will recheck basic metabolic profile tomorrow. If sodium has normalized, can likely discontinue IV fluids and then monitor electrolytes with oral intake only. Sepsis Assessment - Focused Exam Vital Signs Temp Pulse Resp BP Pulse Ox 11/20/16 16:00 98.5 F 77 16 146/71 H 98 11/20/16 08:00 98.6 F 64 20 143/73 H 97 Hospital Course Summary Disclaimer: The visit summary below is not to be considered part of the above Progress Note.
[2016-11-20] MEDS: AMOXICILLIN 875 MG TABLET PO SCH (20:00)
[2016-11-20] MEDS: AZITHROMYCIN 500 MG TABLET PO SCH (21:00)
[2016-11-21] MEDS: POTASSIUM CHLORIDE INJ 20 MEQ in D5W 1,000 ML IV SCH (07:24)
--- NOTE | 2016-11-21 07:45 | Pharmacy Consult ---
Pharmacy Consult-Warfarin - Laboratory Information 11/17/16 11/17/16 11/18/16 04:44 20:36 04:29 INR 2.12 H 1.66 H 1.51 H 11/19/16 11/20/16 11/21/16 11:43 04:39 04:37 INR 1.34 H 1.46 H 1.84 H - Consult Information COUMADIN CONSULT (Recurring): Today's INR = 1.84. Will give Warfarin 3mg today. Will continue to monitor & make adjustments accordingly. Thank you.
[2016-11-21] MEDS: ENOXAPARIN 80 MG/0.8 ML INJECTION SQ SCH ×2 (08:33→20:38)
[2016-11-21] MEDS: AMOXICILLIN 875 MG TABLET PO SCH ×2 (08:34→20:38)
[2016-11-21] MEDS: AZITHROMYCIN 500 MG TABLET PO SCH (09:20)
[2016-11-21] MEDS: INSULIN ASPART 100unit/ml INJECTION SQ PRN (10:43)
[2016-11-21] MEDS ORDERED: WARFARIN 3 MG TABLET PO SCH (12:00)
--- NOTE | 2016-11-21 17:54 | Progress Note ---
Subjective: The patient was seen early this evening in her room. Family is currently not present. I did talk with her nurse and she stated that she is drinking the thickened cranberry juice very well. Speech therapy saw the patient and allowed thin water. Diet was advanced to mechanical soft. The patient's nurse has no other concerns about the patient today. She appears to be doing well. Patient is mostly nonverbal and is not able to answer any questions, this is chronic and she appears about the same as yesterday. Family stated yesterday that she was back to her baseline Objective Vital signs: Temp Pulse Resp BP Pulse Ox 99.1 F 76 18 133/75 96 11/21/16 15:00 11/21/16 15:00 11/21/16 15:00 11/21/16 15:00 11/21/16 15:00 Weight: 84.5 kg Comments: GEN-alert, no acute distress HEENT-sclera anicteric CV-regular rate and rhythm CHEST-auscultation bilaterally ABD-soft, nontender, positive bowel sounds -no Flores EXT-no edema NEURO-patient is chronically nonverbal, unchanged from yesterday SKIN-warm and dry and without rashes - Constitutional Present: no acute distress, well nourished, well developed, obese Results - Labs CBC & Chem 7: 11/21/16 04:37 11/21/16 04:37 Labs: INR is 1.84 Assessment and Plan (1) Sepsis Current visit: Yes Status: Acute (2) Pneumonia Current visit: Yes Status: Acute (3) Acute respiratory insufficiency Current visit: Yes Status: Acute (4) Hypernatremia Current visit: Yes Status: Acute POA (5) Hypokalemia Current visit: Yes Status: Acute POA (6) Encephalopathy Current visit: Yes Status: Acute (7) Type II diabetes mellitus Current visit: Yes Status: Chronic (8) HTN (hypertension) Current visit: Yes Status: Chronic (9) Hyperlipidemia Current visit: Yes Status: Chronic (10) Paroxysmal atrial fibrillation Current visit: Yes Status: Chronic (11) Anticoagulated on Coumadin Current visit: Yes Status: Chronic (12) Seizure disorder Current visit: Yes Status: Chronic (13) Obesity (BMI 30-39.9) Current visit: Yes Status: Chronic (14) Thrombocytopenia Current visit: Yes Status: Chronic (15) UTI (urinary tract infection) due to Enterococcus Current visit: Yes Status: Acute Assessment and Plan: 11/21/2016-Dr. Evans Sepsis and acute hypoxic respiratory failure or resolved Patient continues on amoxicillin and azithromycin for pneumonia-these were switched to oral yesterday Re: Enterococcus UTI-continue amoxicillin Type 2 diabetes show blood sugars are fairly stable Paroxysmal atrial fibrillation-currently with a regular rhythm-INR is still subtherapeutic and she is on Lovenox. Pharmacy is managing Coumadin adjustment. Hypernatremia is improved today. She is taking oral fluids better and diet was advanced today. We'll discontinue IV fluids and recheck lab tomorrow Seizure disorder-no seizures this hospitalization Thrombocytopenia is improved The patient is chronically weak requiring 2 person assist with minimal verbalization. She is at baseline. Possible discharge to home in the next 1-2 days if continuing to improve. Sepsis Assessment - Evaluation Sepsis screening result: No Definite Risk SIRS Criteria: temperature > or equal to 100.4, pulse > or equal to 90 beats/ minute Severe Sepsis: none seen - Focused Exam Vital Signs Temp Pulse Resp BP Pulse Ox 11/21/16 15:00 99.1 F 76 18 133/75 96 11/21/16 07:26 97.4 F 70 16 132/69 93 Respiratory exam: Present: decreased breath sounds. Absent: accessory muscle use Cardiovascular exam: Present: RRR, S1, S2 Capillary refill: < 2-3 Seconds Hospital Course Summary Disclaimer: The visit summary below is not to be considered part of the above Progress Note. Hospital Course: 11/16/16 Admit Patient will be placed under full admit status to the medical floor. Will plan to continue Rocephin and azithromycin, need to monitor culture data. I have asked for an INR now. Will repeat labs in AM. Continue Coumadin, home AED regimen. Will provide level 1 SSI protocol, and follow accuchecks. Diabetic diet. A daughter is present at the bedside and identifies herself as DPOA. She desires full code status. 11/17/16 Resting in bed. Nursing reports pt able to take oral in well (when awake and alert). Did have episode of 'freezing up' - stopped eating with mouth open and stared off into space, lasted about 50 seconds. Breathing looks more comfortable this evening as compared to earlier. Lungs much less congested. Continue Rocephin and azithromycin for antimicrobial coverage. Change IVF to 1/2NS with 20 KCl for hydration and to help normalize sodium and potassium. Speech consult to check swallow in light of encephalopathy. Continue with supplemental O2, weaning as able. Daily INR due to Coumadin use and sepsis - Pharm to manage. Recheck BMP and CBC in am due to sepsis and IVF use. Will need PT/OT to help strength, once encephalopathy improves . 11/18/16 Did eat well for lunch and dinner yesterday but did not take her Warfarin last night or again this morning when offered. Pharmacy is managing Warfarin. INR this morning was 1.51 and did speak with Alexis in pharmacy. Will start her on Lovenox BID to bridge until she is taking her Warfarin and her INR is back up to theraputic range. Na today is up to 156, IVF changed to D5W with 20KCL to help decrease. K+-3.5 today. Continue with Rocephin and Azithromycin (day 3) and try to wean O2. She is on 1L per NC during exam. No respiratory distress noted and she did speak some during exam. Has not been very interactive with staff. Continues to be somewhat confused. Will recheck labs in the morning given change in IVF. PT/OT when more alert. 11/19/16 Sepsis secondary to pneumonia: continue Rocephin and azithromycin. Weaned off O2 this am. Hypernatremia: Na improved to 151. Continue D5W with KCl but decrease rate to 50 ml/hr to reduce risk of overload. PT/OT evaluation: recommendations pending INR pending this am: She was subtherapeutic yesterday and received Lovenox. Thrombocytopenia: in review of old records, this is not a new problem. DM2: glucose under good control. 11/20/16 Sepsis secondary to pneumonia: -Rocephin was dc'd on 11/19 due to positive UC with enterococcus - Ampicillin was started instead. -Cont Azithro. -Sepsis syndrome has resolved. Hypernatremia: -Na improved to 149. -Continue D5W with KCl. Hypokalemia: -K decreased to 3.4 - give additional replacement INR: -increased but subtherapeutic at 1.46 -Continue bridging with Lovenox. Thrombocytopenia: -Monitor closely while on Lovenox; platelets 79 today. PT: -pt was unable to stay awake to participate today. OT: -Total assist at home and here in hospital - dismissed because she is at PLOF. 11/20/2016-I reviewed this chart, the patient history, and the [employer]'s/PA's documented findings as above. We discussed and formulated the assessment and plan as above with the additions below.-Dr. Evans The patient was seen this evening accompanied by her daughter, son-in-law, and granddaughter and great grandson. They all state she is doing much better. She is more alert and is saying a few more words. She is eating well. She does not like the thickened liquids. They state she is "pretty much back to normal". They state she chronically needs 2 person assist to be up and walk. Her nurse has no concerns. She is taking her medicines with applesauce without difficulties. Vital signs are stable. On exam she is alert and mostly nonverbal. Pupils are equal and sclerae are anicteric. Neck is supple. Chest is clear to auscultation but she cannot deep breathing on command. Cardiovascular reveals a regular rate and rhythm. Abdomen is soft and nontender with positive bowel sounds. Extremities are free of edema. Sodium is improving and is 149. Potassium 3.4. Bicarbonate has improved to 23. Chloride is improving. Regarding UTI with enterococcus, we'll discontinue ampicillin and switch to amoxicillin. Hopefully this should help with sodium as well since the ampicillin was in normal saline. We'll change azithromycin to oral as well. Continue with D5W with potassium IV for now and will recheck basic metabolic profile tomorrow. If sodium has normalized, can likely discontinue IV fluids and then monitor electrolytes with oral intake only. 11/21/16 17:54
--- NOTE | 2016-11-22 08:04 | Pharmacy Consult ---
Pharmacy Consult-Warfarin - Laboratory Information 11/17/16 11/17/16 11/18/16 04:44 20:36 04:29 INR 2.12 H 1.66 H 1.51 H 11/19/16 11/20/16 11/21/16 11:43 04:39 04:37 INR 1.34 H 1.46 H 1.84 H 11/22/16 04:49 INR 2.00 H - Consult Information 71 y.o. Female with a history of A. Fib and chronic anticoagulation with Warfarin. goal INR= 2.0 to 3.0. INR is back within therapeutic range today after 4 days of falling sub- therapeutic. Due to recent sub-therapeutic INR, Lovenox 80 mg SQ Q12h is currently ordered in addition to Warfarin. Will give Warfarin 2 mg po today. Pharmacy will monitor and adjust as needed. Thank you for the consult, Lucrecia Rogers RPh
[2016-11-22] MEDS: AZITHROMYCIN 500 MG TABLET PO SCH (08:07)
[2016-11-22] MEDS: AMOXICILLIN 875 MG TABLET PO SCH ×2 (08:07→21:16)
[2016-11-22] MEDS: ENOXAPARIN 80 MG/0.8 ML INJECTION SQ SCH (08:07)
[2016-11-22] MEDS: INSULIN ASPART 100unit/ml INJECTION SQ PRN (10:48)
[2016-11-22] MEDS ORDERED: WARFARIN 3 MG TABLET PO SCH (12:00)
--- NOTE | 2016-11-22 14:20 | Progress Note ---
<Darling Shen - Last Filed: 11/22/16 14:16> Subjective: Fatimah was lying awake in bed, and was more interactive today. She focused on me when I spoke to her. She offered a weak smile after I said we might be able to send her home tomorrow. When I palpated her abdomen, she moved her hands as if to push me away - I asked if her abdomen hurt and she stated "Yes, it hurts" . However, when I re-examined the pain was not reproduced. She's had good output through her colostomy and has been urinating well. Objective Vital signs: Temp Pulse Resp BP Pulse Ox 97.7 F 81 16 108/62 94 11/22/16 07:10 11/22/16 07:10 11/22/16 07:10 11/22/16 07:10 11/22/16 07:10 Weight: 83.4 kg - Constitutional Present: no acute distress, well nourished, well developed, obese - Routine HEENT Exam Eye: Present: PERRL. Absent: conjunctival icterus, scleral injection ENT: Present: oropharynx clear - Routine Respiratory Exam Present: CTA bilaterally (clear anteriorly) - Routine Cardiovascular Exam Present: RRR, S1, S2 - Routine Abdominal Exam Present: soft, normoactive bowel sounds, non distended, non tender, ostomy - Routine Extremities Exam Present: no edema, pulses intact, normal capillary refill - Routine Musculoskeletal Exam Musculoskeletal: no clubbing or cyanosis, no joint swelling - Routine Skin Exam Present: intact, dry, warm - Routine Neurological Exam Present: alert. Absent: oriented X3 (to self only) - Routine Psychiatric Exam Present: cooperative Results - Labs CBC & Chem 7: 11/22/16 04:49 11/22/16 04:49 Assessment and Plan (1) Sepsis Current visit: Yes Status: Acute (2) Pneumonia Current visit: Yes Status: Acute (3) Acute respiratory insufficiency Current visit: Yes Status: Acute (4) Hypernatremia Current visit: Yes Status: Acute POA (5) Hypokalemia Current visit: Yes Status: Acute POA (6) Encephalopathy Current visit: Yes Status: Acute (7) Type II diabetes mellitus Current visit: Yes Status: Chronic (8) HTN (hypertension) Current visit: Yes Status: Chronic (9) Hyperlipidemia Current visit: Yes Status: Chronic (10) Paroxysmal atrial fibrillation Current visit: Yes Status: Chronic (11) Anticoagulated on Coumadin Current visit: Yes Status: Chronic (12) Seizure disorder Current visit: Yes Status: Chronic (13) Obesity (BMI 30-39.9) Current visit: Yes Status: Chronic (14) Thrombocytopenia Current visit: Yes Status: Chronic (15) UTI (urinary tract infection) due to Enterococcus Current visit: Yes Status: Acute Assessment and Plan: Sepsis and acute hypoxic resp failure secondary to pneumonia and Enterococcus UTI -sepsis syndrome resolved -continue oral abx - amox and azithro (started on 11/20) Electrolyte abnormalities -K decreased to 3.3 - oral replacement ordered -Na stable at 145 -encourage oral fluids PAF -sinus currently -INR therapeutic (2.0) -Lovenox dc'd Thrombocytopenia -continues to improve (108) -suspect reactive DC plan -pt is at baseline -poss DC tomorrow D/W Dr. Evans Sepsis Assessment - Evaluation Sepsis screening result: No Definite Risk SIRS Criteria: temperature > or equal to 100.4, pulse > or equal to 90 beats/ minute Severe Sepsis: none seen - Focused Exam Vital Signs Temp Pulse Resp BP Pulse Ox 11/22/16 07:10 97.7 F 81 16 108/62 94 11/22/16 03:52 97.4 F 86 19 128/77 95 Respiratory exam: Present: decreased breath sounds. Absent: accessory muscle use Cardiovascular exam: Present: RRR, S1, S2 Capillary refill: < 2-3 Seconds Hospital Course Summary Disclaimer: The visit summary below is not to be considered part of the above Progress Note. Hospital Course: 11/16/16 Admit Patient will be placed under full admit status to the medical floor. Will plan to continue Rocephin and azithromycin, need to monitor culture data. I have asked for an INR now. Will repeat labs in AM. Continue Coumadin, home AED regimen. Will provide level 1 SSI protocol, and follow accuchecks. Diabetic diet. A daughter is present at the bedside and identifies herself as DPOA. She desires full code status. 11/17/16 Resting in bed. Nursing reports pt able to take oral in well (when awake and alert). Did have episode of 'freezing up' - stopped eating with mouth open and stared off into space, lasted about 50 seconds. Breathing looks more comfortable this evening as compared to earlier. Lungs much less congested. Continue Rocephin and azithromycin for antimicrobial coverage. Change IVF to 1/2NS with 20 KCl for hydration and to help normalize sodium and potassium. Speech consult to check swallow in light of encephalopathy. Continue with supplemental O2, weaning as able. Daily INR due to Coumadin use and sepsis - Pharm to manage. Recheck BMP and CBC in am due to sepsis and IVF use. Will need PT/OT to help strength, once encephalopathy improves . 11/18/16 Did eat well for lunch and dinner yesterday but did not take her Warfarin last night or again this morning when offered. Pharmacy is managing Warfarin. INR this morning was 1.51 and did speak with Alexis in pharmacy. Will start her on Lovenox BID to bridge until she is taking her Warfarin and her INR is back up to theraputic range. Na today is up to 156, IVF changed to D5W with 20KCL to help decrease. K+-3.5 today. Continue with Rocephin and Azithromycin (day 3) and try to wean O2. She is on 1L per NC during exam. No respiratory distress noted and she did speak some during exam. Has not been very interactive with staff. Continues to be somewhat confused. Will recheck labs in the morning given change in IVF. PT/OT when more alert. 11/19/16 Sepsis secondary to pneumonia: continue Rocephin and azithromycin. Weaned off O2 this am. Hypernatremia: Na improved to 151. Continue D5W with KCl but decrease rate to 50 ml/hr to reduce risk of overload. PT/OT evaluation: recommendations pending INR pending this am: She was subtherapeutic yesterday and received Lovenox. Thrombocytopenia: in review of old records, this is not a new problem. DM2: glucose under good control. 11/20/16 Sepsis secondary to pneumonia: -Rocephin was dc'd on 11/19 due to positive UC with enterococcus - Ampicillin was started instead. -Cont Azithro. -Sepsis syndrome has resolved. Hypernatremia: -Na improved to 149. -Continue D5W with KCl. Hypokalemia: -K decreased to 3.4 - give additional replacement INR: -increased but subtherapeutic at 1.46 -Continue bridging with Lovenox. Thrombocytopenia: -Monitor closely while on Lovenox; platelets 79 today. PT: -pt was unable to stay awake to participate today. OT: -Total assist at home and here in hospital - dismissed because she is at [facility]. 11/20/2016-I reviewed this chart, the patient history, and the SHR[employer] PIT OPERATOR's/PA's documented findings as above. We discussed and formulated the assessment and plan as above with the additions below.-Dr. Evans The patient was seen this evening accompanied by her daughter, son-in-law, and granddaughter and great grandson. They all state she is doing much better. She is more alert and is saying a few more words. She is eating well. She does not like the thickened liquids. They state she is "pretty much back to normal". They state she chronically needs 2 person assist to be up and walk. Her nurse has no concerns. She is taking her medicines with applesauce without difficulties. Vital signs are stable. On exam she is alert and mostly nonverbal. Pupils are equal and sclerae are anicteric. Neck is supple. Chest is clear to auscultation but she cannot deep breathing on command. Cardiovascular reveals a regular rate and rhythm. Abdomen is soft and nontender with positive bowel sounds. Extremities are free of edema. Sodium is improving and is 149. Potassium 3.4. Bicarbonate has improved to 23. Chloride is improving. Regarding UTI with enterococcus, we'll discontinue ampicillin and switch to amoxicillin. Hopefully this should help with sodium as well since the ampicillin was in normal saline. We'll change azithromycin to oral as well. Continue with D5W with potassium IV for now and will recheck basic metabolic profile tomorrow. If sodium has normalized, can likely discontinue IV fluids and then monitor electrolytes with oral intake only. 11/21/2016-Dr. Evans Sepsis and acute hypoxic respiratory failure or resolved Patient continues on amoxicillin and azithromycin for pneumonia-these were switched to oral yesterday Re: Enterococcus UTI-continue amoxicillin Type 2 diabetes show blood sugars are fairly stable Paroxysmal atrial fibrillation-currently with a regular rhythm-INR is still subtherapeutic and she is on Lovenox. Pharmacy is managing Coumadin adjustment. Hypernatremia is improved today. She is taking oral fluids better and diet was advanced today. We'll discontinue IV fluids and recheck lab tomorrow Seizure disorder-no seizures this hospitalization Thrombocytopenia is improved The patient is chronically weak requiring 2 person assist with minimal verbalization. She is at baseline. 11/22/16 Sepsis and acute hypoxic resp failure secondary to pneumonia and Enterococcus UTI -sepsis syndrome resolved -continue oral abx - amox and azithro (started on 11/20) Electrolyte abnormalities -K decreased to 3.3 - oral replacement ordered -Na stable at 145 -encourage oral fluids PAF -sinus currently -INR therapeutic (2.0) -Lovenox dc'd Thrombocytopenia -continues to improve (108) -suspect reactive DC plan -pt is at baseline -poss DC tomorrow D/W Dr. Evans 11/22/16 14:24 <Jovana Evans - Last Filed: 11/22/16 15:09> Objective Vital signs: Temp Pulse Resp BP Pulse Ox 97.3 F 84 18 108/65 97 11/22/16 14:29 11/22/16 14:29 11/22/16 14:29 11/22/16 14:29 11/22/16 14:29 Results - Labs CBC & Chem 7: 11/22/16 04:49 11/22/16 04:49 Assessment and Plan (1) Sepsis Current visit: Yes Status: Acute (2) Pneumonia Current visit: Yes Status: Acute (3) Acute respiratory insufficiency Current visit: Yes Status: Acute (4) Hypernatremia Current visit: Yes Status: Acute (5) Hypokalemia Current visit: Yes Status: Acute (6) Encephalopathy Current visit: Yes Status: Acute (7) Type II diabetes mellitus Current visit: Yes Status: Chronic (8) HTN (hypertension) Current visit: Yes Status: Chronic (9) Hyperlipidemia Current visit: Yes Status: Chronic (10) Paroxysmal atrial fibrillation Current visit: Yes Status: Chronic (11) Anticoagulated on Coumadin Current visit: Yes Status: Chronic (12) Seizure disorder Current visit: Yes Status: Chronic (13) Obesity (BMI 30-39.9) Current visit: Yes Status: Chronic (14) Thrombocytopenia Current visit: Yes Status: Chronic (15) UTI (urinary tract infection) due to Enterococcus Current visit: Yes Status: Acute Assessment and Plan: 11/22/2016-I reviewed this chart, the patient history, and the SHR[employer] PIT OPERATOR's/PA's documented findings as above. We discussed and formulated the assessment and plan as above with the additions below.-Nathan I examined the patient today accompanied by her daughter and son-in-law. They state she seems to be back to baseline. She does have an occasional productive cough while I'm present in the room. She is alert and in no acute distress. Chest is clear to auscultation. Cardiovascular reveals a regular rate and rhythm. Abdomen is soft and nontender. Skin reveals no erythema or rash. I talked with the family about her sodium which is stable off of IV fluids. I would like to recheck it tomorrow and if stable to improved she could likely be discharged to home. Thrombocytopenia continues to improve. INR is in the therapeutic range and Lovenox was discontinued today. I asked if they had any other concerns and they asked about her seizure medications and whether it should be decreased. They stated that she had had a seizure here in the hospital. I did review nurse's notes and apparently she did have a possible short lasting seizure on 11/17/2016 that was reported. I then reviewed her seizure medication and saw that she was on Zonisamide 200mg qhs at home and it appeared to have been ordered on admission and then discontinued before she received her dose. I then discussed her medicines with her pharmacist and she has not received any doses of Zonisamide this hospital course. Family stated that they thought the zonisamide may be causing drowsiness and worsening in her ability to ambulate prior to admission. I did notify the family that she has not received her seizure medicine this hospital course and that I will restart it today and discuss with Dr. Mejia. Regarding pneumonia, she has received 6-7 days of azithromycin and this will be discontinued. Regarding UTI with enterococcus, she is on day 5 of treatment which was initially ampicillin and then switch to oral amoxicillin. Greater than 30 minutes of time was spent seeing and evaluating the patient, reviewing the chart, talking with family and talking with the pharmacist. Sepsis Assessment - Focused Exam Vital Signs Temp Pulse Resp BP Pulse Ox 11/22/16 14:29 97.3 F 84 18 108/65 97 11/22/16 07:10 97.7 F 81 16 108/62 94 11/22/16 03:52 97.4 F 86 19 128/77 95 Hospital Course Summary Disclaimer: The visit summary below is not to be considered part of the above Progress Note.
[2016-11-22] MEDS: ZONISAMIDE 100 MG CAPSULE PO SCH (21:16)
[2016-11-23] MEDS: AMOXICILLIN 875 MG TABLET PO SCH ×2 (08:01→21:34)
--- NOTE | 2016-11-23 08:56 | Pharmacy Consult ---
Pharmacy Consult-Warfarin - Laboratory Information 11/17/16 11/17/16 11/18/16 04:44 20:36 04:29 INR 2.12 H 1.66 H 1.51 H 11/19/16 11/20/16 11/21/16 11:43 04:39 04:37 INR 1.34 H 1.46 H 1.84 H 11/22/16 11/23/16 04:49 05:05 INR 2.00 H 1.97 H - Consult Information 71 y.o. Female with a history of A. Fib and chronic anticoagulation with Warfarin. goal INR= 2.0 to 3.0. Will give Warfarin 4 mg po today. Pharmacy will monitor and adjust as needed. Thank you for the consult, Lucrecia Rogers RPh
[2016-11-23] MEDS: INSULIN ASPART 100unit/ml INJECTION SQ PRN (11:00)
[2016-11-23] MEDS ORDERED: WARFARIN 4 MG TABLET PO SCH (12:00)
--- NOTE | 2016-11-23 13:20 | Progress Note ---
<HermelindaDarling D - Last Filed: 11/23/16 13:17> Subjective: Fatimah was awake and alert. She smiled and took a hold of my badge and looked at the different parts of it as I explained each section. She smiled occasionally but didn't answer questions verbally. I told her that she is doing well but we are worried about her becoming dehydrated. I asked her if she could drink some more fluids and she nodded her head in agreement. When I asked if she was cold she started pulling up the covers. Objective Vital signs: Temp Pulse Resp BP Pulse Ox 98.4 F 76 18 130/69 95 11/23/16 07:53 11/23/16 07:53 11/23/16 07:53 11/23/16 07:53 11/23/16 07:53 Weight: 82.236 kg - Constitutional Present: no acute distress, well nourished, well developed, obese - Routine HEENT Exam ENT: Present: mucous membranes moist, oropharynx clear (as far as I could tell - she didn't open her mouth wide enough to assess for thrush) - Routine Respiratory Exam Present: CTA bilaterally - Routine Cardiovascular Exam Present: RRR, S1, S2 - Routine Abdominal Exam Present: soft, normoactive bowel sounds, non tender - Routine Extremities Exam Present: no edema, pulses intact, normal capillary refill - Routine Musculoskeletal Exam Musculoskeletal: no clubbing or cyanosis - Routine Skin Exam Present: intact, dry, warm - Routine Neurological Exam Present: alert. Absent: oriented X3 (oriented to self only) Results - Labs CBC & Chem 7: 11/23/16 05:05 11/23/16 05:05 Assessment and Plan (1) Sepsis Current visit: Yes Status: Acute (2) Pneumonia Current visit: Yes Status: Acute (3) Acute respiratory insufficiency Current visit: Yes Status: Acute (4) Hypernatremia Current visit: Yes Status: Acute POA (5) Hypokalemia Current visit: Yes Status: Acute POA (6) Encephalopathy Current visit: Yes Status: Acute (7) Type II diabetes mellitus Current visit: Yes Status: Chronic (8) HTN (hypertension) Current visit: Yes Status: Chronic (9) Hyperlipidemia Current visit: Yes Status: Chronic (10) Paroxysmal atrial fibrillation Current visit: Yes Status: Chronic (11) Anticoagulated on Coumadin Current visit: Yes Status: Chronic (12) Seizure disorder Current visit: Yes Status: Chronic (13) Obesity (BMI 30-39.9) Current visit: Yes Status: Chronic (14) Thrombocytopenia Current visit: Yes Status: Chronic (15) UTI (urinary tract infection) due to Enterococcus Current visit: Yes Status: Acute Assessment and Plan: Hypernatremia; dehydration risk -Na increased to 146 -poor oral intake of fluids -IVF were discontinued on 11/21/16 - if she doesn't start taking in better oral fluids we may need to restart IVF Sepsis, pneumonia, enterococcus UTI -sepsis resolved and pneumonia has clinically improved -abx course for pneumonia completed -continue amoxicillin for UTI, day #6 Thrombocytopenia -improved to 112 Discharge plans -poss DC soon, pending ability to maintain hydration -Discussed with Dr. Evans Sepsis Assessment - Evaluation Sepsis screening result: No Definite Risk SIRS Criteria: temperature > or equal to 100.4, pulse > or equal to 90 beats/ minute Severe Sepsis: none seen - Focused Exam Vital Signs Temp Pulse Resp BP Pulse Ox 11/23/16 07:53 98.4 F 76 18 130/69 95 Respiratory exam: Present: decreased breath sounds. Absent: accessory muscle use Cardiovascular exam: Present: RRR, S1, S2 Capillary refill: < 2-3 Seconds Hospital Course Summary Disclaimer: The visit summary below is not to be considered part of the above Progress Note. Hospital Course: 11/16/16 Admit Patient will be placed under full admit status to the medical floor. Will plan to continue Rocephin and azithromycin, need to monitor culture data. I have asked for an INR now. Will repeat labs in AM. Continue Coumadin, home AED regimen. Will provide level 1 SSI protocol, and follow accuchecks. Diabetic diet. A daughter is present at the bedside and identifies herself as DPOA. She desires full code status. 11/17/16 Resting in bed. Nursing reports pt able to take oral in well (when awake and alert). Did have episode of 'freezing up' - stopped eating with mouth open and stared off into space, lasted about 50 seconds. Breathing looks more comfortable this evening as compared to earlier. Lungs much less congested. Continue Rocephin and azithromycin for antimicrobial coverage. Change IVF to 1/2NS with 20 KCl for hydration and to help normalize sodium and potassium. Speech consult to check swallow in light of encephalopathy. Continue with supplemental O2, weaning as able. Daily INR due to Coumadin use and sepsis - Pharm to manage. Recheck BMP and CBC in am due to sepsis and IVF use. Will need PT/OT to help strength, once encephalopathy improves . 11/18/16 Did eat well for lunch and dinner yesterday but did not take her Warfarin last night or again this morning when offered. Pharmacy is managing Warfarin. INR this morning was 1.51 and did speak with Alexis in pharmacy. Will start her on Lovenox BID to bridge until she is taking her Warfarin and her INR is back up to theraputic range. Na today is up to 156, IVF changed to D5W with 20KCL to help decrease. K+-3.5 today. Continue with Rocephin and Azithromycin (day 3) and try to wean O2. She is on 1L per NC during exam. No respiratory distress noted and she did speak some during exam. Has not been very interactive with staff. Continues to be somewhat confused. Will recheck labs in the morning given change in IVF. PT/OT when more alert. 11/19/16 Sepsis secondary to pneumonia: continue Rocephin and azithromycin. Weaned off O2 this am. Hypernatremia: Na improved to 151. Continue D5W with KCl but decrease rate to 50 ml/hr to reduce risk of overload. PT/OT evaluation: recommendations pending INR pending this am: She was subtherapeutic yesterday and received Lovenox. Thrombocytopenia: in review of old records, this is not a new problem. DM2: glucose under good control. 11/20/16 Sepsis secondary to pneumonia: -Rocephin was dc'd on 11/19 due to positive UC with enterococcus - Ampicillin was started instead. -Cont Azithro. -Sepsis syndrome has resolved. Hypernatremia: -Na improved to 149. -Continue D5W with KCl. Hypokalemia: -K decreased to 3.4 - give additional replacement INR: -increased but subtherapeutic at 1.46 -Continue bridging with Lovenox. Thrombocytopenia: -Monitor closely while on Lovenox; platelets 79 today. PT: -pt was unable to stay awake to participate today. OT: -Total assist at home and here in hospital - dismissed because she is at PLOF. 11/20/2016-I reviewed this chart, the patient history, and the DOWEL SETTING MACHINE OPERATOR's/PA's documented findings as above. We discussed and formulated the assessment and plan as above with the additions below.-Dr. Evans The patient was seen this evening accompanied by her daughter, son-in-law, and granddaughter and great grandson. They all state she is doing much better. She is more alert and is saying a few more words. She is eating well. She does not like the thickened liquids. They state she is "pretty much back to normal". They state she chronically needs 2 person assist to be up and walk. Her nurse has no concerns. She is taking her medicines with applesauce without difficulties. Vital signs are stable. On exam she is alert and mostly nonverbal. Pupils are equal and sclerae are anicteric. Neck is supple. Chest is clear to auscultation but she cannot deep breathing on command. Cardiovascular reveals a regular rate and rhythm. Abdomen is soft and nontender with positive bowel sounds. Extremities are free of edema. Sodium is improving and is 149. Potassium 3.4. Bicarbonate has improved to 23. Chloride is improving. Regarding UTI with enterococcus, we'll discontinue ampicillin and switch to amoxicillin. Hopefully this should help with sodium as well since the ampicillin was in normal saline. We'll change azithromycin to oral as well. Continue with D5W with potassium IV for now and will recheck basic metabolic profile tomorrow. If sodium has normalized, can likely discontinue IV fluids and then monitor electrolytes with oral intake only. 11/21/2016-Dr. Evans Sepsis and acute hypoxic respiratory failure or resolved Patient continues on amoxicillin and azithromycin for pneumonia-these were switched to oral yesterday Re: Enterococcus UTI-continue amoxicillin Type 2 diabetes show blood sugars are fairly stable Paroxysmal atrial fibrillation-currently with a regular rhythm-INR is still subtherapeutic and she is on Lovenox. Pharmacy is managing Coumadin adjustment. Hypernatremia is improved today. She is taking oral fluids better and diet was advanced today. We'll discontinue IV fluids and recheck lab tomorrow Seizure disorder-no seizures this hospitalization Thrombocytopenia is improved The patient is chronically weak requiring 2 person assist with minimal verbalization. She is at baseline. 11/22/16 Sepsis and acute hypoxic resp failure secondary to pneumonia and Enterococcus UTI -sepsis syndrome resolved -continue oral abx - amox and azithro (started on 11/20) Electrolyte abnormalities -K decreased to 3.3 - oral replacement ordered -Na stable at 145 -encourage oral fluids PAF -sinus currently -INR therapeutic (2.0) -Lovenox dc'd Thrombocytopenia -continues to improve (108) -suspect reactive DC plan -pt is at baseline -poss DC tomorrow 11/23/16 13:28 Hypernatremia; dehydration risk -Na increased to 146 -poor oral intake of fluids -IVF were discontinued on 11/21/16 - if she doesn't start taking in better oral fluids we may need to restart IVF Sepsis, pneumonia, enterococcus UTI -sepsis resolved and pneumonia has clinically improved -abx course for pneumonia completed -continue amoxicillin for UTI, day #6 Thrombocytopenia -improved to 112 Discharge plans -poss DC soon, pending ability to maintain hydration -Discussed with Dr. Evans <Jovana Evans - Last Filed: 11/23/16 15:13> Objective Vital signs: Temp Pulse Resp BP Pulse Ox 98.4 F 76 18 130/69 95 11/23/16 07:53 11/23/16 07:53 11/23/16 07:53 11/23/16 07:53 11/23/16 07:53 Results - Labs CBC & Chem 7: 11/23/16 05:05 11/23/16 05:05 Assessment and Plan (1) Sepsis Current visit: Yes Status: Acute (2) Pneumonia Current visit: Yes Status: Acute (3) Acute respiratory insufficiency Current visit: Yes Status: Acute (4) Hypernatremia Current visit: Yes Status: Acute (5) Hypokalemia Current visit: Yes Status: Acute (6) Encephalopathy Current visit: Yes Status: Acute (7) Type II diabetes mellitus Current visit: Yes Status: Chronic (8) HTN (hypertension) Current visit: Yes Status: Chronic (9) Hyperlipidemia Current visit: Yes Status: Chronic (10) Paroxysmal atrial fibrillation Current visit: Yes Status: Chronic (11) Anticoagulated on Coumadin Current visit: Yes Status: Chronic (12) Seizure disorder Current visit: Yes Status: Chronic (13) Obesity (BMI 30-39.9) Current visit: Yes Status: Chronic (14) Thrombocytopenia Current visit: Yes Status: Chronic (15) UTI (urinary tract infection) due to Enterococcus Current visit: Yes Status: Acute Assessment and Plan: 11/23/2016-I reviewed this chart, the patient history, and the DOWEL SETTING MACHINE OPERATOR's/PA's documented findings as above. We discussed and formulated the assessment and plan as above with the additions below.-Dr. Evans The patient was seen in her room today. Family is not present currently. The patient is alert and appears in no distress. She does not attempt to answer any questions. Lungs are clear. Cardiovascular reveals a regular rate and rhythm. Abdomen is soft and nontender. Extremities reveal no edema. Skin is warm and dry and without rashes. Yesterday, oral intake was only 710 ML's. Sodium was 146 today and did not improved compared to yesterday. I did talk with the nurses this morning about trying to encourage increased fluid intake. Patient has had over 700 ML's of fluid so far today. Regarding seizure disorder, Zonisamide was restarted last night at her usual 200 mg dose once daily at at bedtime. She apparently had a short lasting seizure on 11/17/2016 but none since that time. Discussed again today with Dr. Mejia and he recommended continuing on this same dose of medication and following up with him as an outpatient. Inpatient consultation was not necessary , and I definitely agree at this time. Continue amoxicillin for UTI. Hopefully home tomorrow if she continues to take by mouth fluids well. Discussed with case management. mailing manager has notified family of potential plan for discharge tomorrow. Sepsis Assessment - Focused Exam Vital Signs Temp Pulse Resp BP Pulse Ox 11/23/16 07:53 98.4 F 76 18 130/69 95 Hospital Course Summary Disclaimer: The visit summary below is not to be considered part of the above Progress Note.
[2016-11-23] MEDS: ZONISAMIDE 100 MG CAPSULE PO SCH (23:44)
--- NOTE | 2016-11-24 10:37 | Pharmacy Consult ---
Pharmacy Consult-Warfarin - Laboratory Information 11/17/16 11/17/16 11/18/16 04:44 20:36 04:29 INR 2.12 H 1.66 H 1.51 H 11/19/16 11/20/16 11/21/16 11:43 04:39 04:37 INR 1.34 H 1.46 H 1.84 H 11/22/16 11/23/16 11/24/16 04:49 05:05 05:22 INR 2.00 H 1.97 H 2.14 H - Consult Information 71 y.o. Female with a history of A. Fib and chronic anticoagulation with Warfarin. goal INR= 2.0 to 3.0. Will give Warfarin 3 mg po today. Pharmacy will monitor and adjust as needed. Thank you for the consult, Lucrecia Rogers RPh
[2016-11-24] MEDS: AMOXICILLIN 875 MG TABLET PO SCH (10:54)
[2016-11-24] MEDS ORDERED: WARFARIN 3 MG TABLET PO SCH (12:00)
--- NOTE | 2016-11-24 13:25 | Discharge Summary ---
Discharge Information Date of admission: 11/16/16 21:34 Anticipated date of discharge: 11/24/16 Attending Physician: Jovana Evans MD Primary care physician: Jaiden Chairez II, MD Consults: 11/17/16 Pharmacy Consult [CONS] Routine Pharmacy Consult: Coumadin/Warfarin 11/17/16 15:22 [facility] Consult [CONS] Routine - Discharge Diagnosis (1) Sepsis Status: Acute (2) Pneumonia Status: Acute (3) Acute respiratory insufficiency Status: Acute (4) Hypernatremia Status: Acute (5) Hypokalemia Status: Acute (6) Encephalopathy Status: Acute (7) Type II diabetes mellitus Status: Chronic (8) HTN (hypertension) Status: Chronic (9) Hyperlipidemia Status: Chronic (10) Paroxysmal atrial fibrillation Status: Chronic (11) Anticoagulated on Coumadin Status: Chronic (12) Seizure disorder Status: Chronic (13) Obesity (BMI 30-39.9) Status: Chronic (14) Thrombocytopenia Status: Chronic (15) UTI (urinary tract infection) due to Enterococcus Status: Acute - Procedures Procedures: none - Laboratory Labs: 11/23/16 05:05 11/24/16 05:52 Stool for C. difficile was negative on 11/24/2016 INR was 2.4 on admission and became subtherapeutic down to 1.34 and is now 2.14 on discharge Sodium was as high as 156 and is now down to 144 Laboratory Results WBC 6.7 T/MM3 (4.5-11.0) 11/23/16 05:05 RBC 4.75 M/MM3 (4.00-5.20) 11/23/16 05:05 Hgb 12.9 GM/DL (12-16) 11/23/16 05:05 Hct 40.8 % (36-46) 11/23/16 05:05 MCV 85.9 UM3 (80-100) 11/23/16 05:05 MCH 27.2 UUG (26-34) 11/23/16 05:05 MCHC 31.6 GM/DL (31-37) 11/23/16 05:05 RDW Std Deviation 51.3 FL (36.9-50.2) H 11/23/16 05:05 Plt Count 112 T/MM3 (130-400) L 11/23/16 05:05 MPV 10.6 UM3 (9.4-12.4) 11/23/16 05:05 Immature Gran % (Auto) Not performed 11/23/16 05:05 Neut % (Auto) Not performed 11/23/16 05:05 Lymph % (Auto) Not performed 11/23/16 05:05 Clarke % (Auto) Not performed 11/23/16 05:05 Eos % (Auto) Not performed 11/23/16 05:05 Baso % (Auto) Not performed 11/23/16 05:05 Neut # Not performed 11/23/16 05:05 Lymph # Not performed 11/23/16 05:05 Clarke # Not performed 11/23/16 05:05 Eos # 0.2 T/MM3 (0-0.5) 11/20/16 04:39 Baso # Not performed 11/23/16 05:05 Abs Immat Gran (auto) Not performed 11/23/16 05:05 Neutrophils % (Manual) 55.0 % (33-66) 11/23/16 05:05 Band Neutrophils % 5.0 % (0-6) 11/23/16 05:05 Lymphocytes % (Manual) 39.0 % (23-45) 11/23/16 05:05 Reactive Lymphs % 1.0 % (0-0) H 11/21/16 04:37 Monocytes % (Manual) 5.0 % (0-9.0) 11/21/16 04:37 Eosinophils % (Manual) 1.0 % (0-4) 11/23/16 05:05 Metamyelocytes % 1.0 % (0-0) H 11/21/16 04:37 Neutrophils # (Manual) 3.7 T/MM3 (1.8-7.7) 11/23/16 05:05 Band Neutrophils # 0.3 T/MM3 11/23/16 05:05 Lymphocytes # (Manual) 2.6 T/MM3 (1-4.8) 11/23/16 05:05 Abs React Lymphs (Man) 0.1 T/MM3 (0-0) H 11/21/16 04:37 Monocytes # (Manual) 0.3 T/MM3 (0-0.8) 11/21/16 04:37 Eosinophils # (Manual) 0.1 T/MM3 (0-0.5) 11/23/16 05:05 Metamyelocytes # 0.1 T/MM3 11/21/16 04:37 RBC Morph Comment Normal 11/23/16 05:05 INR 2.14 (0.99-1.21) H 11/24/16 05:22 Turbidity < 20 (0-20) 11/24/16 05:52 Sodium 144 MEQ/L (134-144) 11/24/16 05:52 Potassium 3.8 MEQ/L (3.6-5) 11/24/16 05:52 Chloride 108 MEQ/L (98-107) H 11/24/16 05:52 Carbon Dioxide 26 MEQ/L (22-30) 11/24/16 05:52 Anion Gap 10 MEQ/L (5-15) 11/24/16 05:52 BUN 10.0 MG/DL (7-17) 11/24/16 05:52 Creatinine 0.9 MG/DL (0.7-1.2) 11/24/16 05:52 GFR Calculation 61 11/24/16 05:52 BUN/Creatinine Ratio 11 RATIO (6-26) 11/24/16 05:52 Glucose 88 MG/DL (65-110) 11/24/16 05:52 Glucometer 121 mg/dL (65-110) 11/24/16 10:29 Calculated Osmolality 275 MOSM/KG (261-280) 11/24/16 05:52 Calcium 8.7 MG/DL (8.4-10.2) 11/24/16 05:52 Phosphorus 3.4 MG/DL (2.5-4.5) 11/22/16 04:49 Magnesium 1.9 MG/DL (1.6-2.3) 11/21/16 04:37 Total Bilirubin 1.00 MG/DL (0.20-1.30) 11/16/16 18:43 Conjugated Bilirubin 0.00 MG/DL (0.00-0.30) 11/16/16 18:43 Unconjugated Bilirubin 0.70 MG/DL (0.00-11.10) 11/16/16 18:43 Icterus Index < 2 (0-7) 11/24/16 05:52 AST 27 U/L (14-36) 11/16/16 18:43 ALT 33 U/L (9-52) 11/16/16 18:43 Alkaline Phosphatase 104 U/L (38-126) 11/16/16 18:43 Total Protein 7.2 G/DL (6.3-8.2) 11/16/16 18:43 Albumin 3.1 G/DL (3.5-5.0) L 11/22/16 04:49 Globulin 3.3 G/DL (2.4-3.6) 11/16/16 18:43 Albumin/Globulin Ratio 1.2 RATIO (1.1-2.2) 11/16/16 18:43 Plasma Lactate 1.9 MMOL/L (0.6-2.2) 11/17/16 00:21 Procalcitonin 0.52 NG/ML 11/16/16 18:43 Specimen Hemolysis < 15 (0-25) 11/24/16 05:52 Ur Collection Type Urine, catheter 11/16/16 19:46 Urine Color Yellow (YELLOW) 11/16/16 19:46 Urine Clarity Sl cloudy 11/16/16 19:46 Urine pH 5.5 (5.0-8.0) 11/16/16 19:46 Ur Specific [place] 1.025 (1.015-1.025) 11/16/16 19:46 Urine Protein 2+ (NEGATIVE) A 11/16/16 19:46 Urine Glucose (UA) Negative (NEGATIVE) 11/16/16 19:46 Urine Ketones Negative (NEGATIVE) 11/16/16 19:46 Urine Occult Blood 3+ (NEGATIVE) A 11/16/16 19:46 Urine Nitrate Negative (NEGATIVE) 11/16/16 19:46 Urine Bilirubin Negative (NEGATIVE) 11/16/16 19:46 Urine Urobilinogen 0.2 EU/DL (NORMAL) 11/16/16 19:46 Ur Leukocyte Esterase 1+ (NEGATIVE) A 11/16/16 19:46 Urine RBC 50-200 /HPF (0-3) H 11/16/16 19:46 Urine WBC 10-20 /HPF (0-5) H 11/16/16 19:46 Urine Bacteria 2+ (NEGATIVE) H 11/16/16 19:46 Ur Culture Indicated? Cancelled 11/16/16 19:46 Urinalysis Comment Cancelled 11/16/16 19:46 Stl C. diff Tox B Gene Negative (Negative) 11/24/16 10:45 - Microbiology UTI with enterococcus ECM and gram-positive rosy. Enterococcus faecium was sensitive to ampicillin, linezolid, vancomycin. It was resistant to ciprofloxacin and Levatol floxacillin. - Radiology Radiology: Chest x-ray on 11/16/2016 showed lower lobe airspace disease that could be pneumonia, aspiration or atelectasis Repeat chest x-ray 11/17/2016 shows continued lower lobe infiltrates with new small effusions CT head FINDINGS: Mild generalized atrophy. The ventricles are of normal size, shape, and contour for the patient's age. There are extensive areas of low attenuation in the white matter which most likely represent changes from chronic microvascular ischemia. The brainstem, cerebellum, and cerebral hemispheres otherwise have a normal morphology and CT attenuation. There is no evidence of midline displacement. No hemorrhage, signs of acute territorial stroke, mass effect, mass lesions, or edema is evident. The visualized portions of the skull base, midface, and calvarium demonstrate no abnormality. Chronic appearing right maxillary sinusitis. The tympanic and mastoid cavities appear normal. IMPRESSION: No acute intracranial abnormality or hemorrhage. Chronic right maxillary sinusitis. - Pathology None History of Present Illness HPI: 72 year old female with a known history of dementia presents the to ED tonight with reports of decreased LOC. She lives at home with her family. EMS was called out to the house due to the decreased LOC. She was noted to be febrile there with a temp of 102. She apparently has had a cough and fever for a few days now. Upon arrival, she was noted to be hypoxemic. She is presently on 2L NC02 with sats in the upper 90s by report upon admit to the floor. BP is stable. A CXR shows a right middle lobe infiltrate. She has been given rocephin and azithromycin. A lactate and procalcitonin are not elevated. She has also been given IVF. She is now in the process of admission to the medical floor for further eval and treatment. She meets sepsis criteria based on temp, HR, RR. Hospital Course Hospital course: The patient was admitted with altered mental status, dehydration and UTI as well as pneumonia. The patient was started on half-normal saline for dehydration and elevated sodium level. Unfortunately, sodium shiva even higher and she was then switched to D5 W with potassium. After several days, sodium did improve to 145. On admission the patient had encephalopathy and was not able to eat her usual diet. Speech therapy was consulted and at the time of discharge she was able to tolerate a pured diet and thin liquids. We were able to discontinue IV fluids a few days prior to discharge and the patient is maintaining good oral fluid intake and sodium has decreased to the normal range. Regarding pneumonia, the patient received a five-day course of azithromycin Re: Enterococcus UTI she has received 5 days of treatment with appropriate antibiotics initially ampicillin and switch to oral amoxicillin later. She will need 3 more days of treatment Re: Encephalopathy, patient has been back to baseline for the last 3-4 days per family. Regarding pneumonia, cough has resolved and hypoxia has resolved. She has been on room air for the past several days. Regarding seizure disorder, her Zonisamide was accidentally not restarted on admission. She did have a reportedly 52 second seizure on 11/17/2016. I noticed on 11/22/2016 that she was not on any seizure medication. I did call and talk with Dr. Mejia and he recommended restarting her usual antiseizure medication. She has not had any other seizures reported. He wants to follow-up with her as an outpatient. On the day of discharge the patient is alert and in no acute distress. She is taking her medications and eating and drinking without difficulty. She has very liquidy stool in her colostomy bag. We did check it for C. difficile today and C. difficile toxin was negative. Chest is clear to auscultation. Cardiovascular reveals a regular rate and rhythm. Abdomen is soft and nontender. Extremities reveal no edema. The patient appeared to be stable for dismissal to home with 24-hour care by her family. Greater than 35 minutes of time was spent seeing and evaluating the patient and arranging for discharge today. Discharge Plan - Med Rec/Dispo Referrals/Follow Up: Gisell Mejia MD [Physician] - (Follow-up in one to 2 weeks) Jaiden Chairez II, MD [Family Provider] - (Follow-up later this week and have lab work to follow-up on sodium level (BMP) and INR) Fátima Instructions: Pneumonia (GEN) Prescriptions: New Acetaminophen [Tylenol] 650 mg PO Q5H PRN PRN Reason: Fever Amoxicillin 875 mg PO Q12HR #6 Nystatin Powder [Mycostatin] 1 applic TP BID bottle Zonisamide [Zonegran] 200 mg PO HS cap Continue Warfarin 1.5 mg PO Q3D #0 Warfarin [Coumadin] 3 mg PO Q2D #0 No Action Zonisamide 200 mg PO HS #0 - Disposition 01 Discharged Home, Self-Care
== END 2016-11-24 15:11 | disposition home or self-care (01) | DRG 871 ==
LOC: ED 18:25 → MED 20:37
PROVIDERS: ADMIT Hospitalist; ATTEND Internal Medicine

== ENCOUNTER 2017-06-23 14:09 | Inpatient (IN) ==
--- NOTE | 2017-06-23 14:32 | Emergency Department Report ---
General Adult HPI - General Chief complaint: Extremity Problem,Nontraumatic Stated complaint: foot ulcer Time Seen by Provider: 06/23/17 14:31 - Related Data Previous Rx's Medication Instructions Recorded Acetaminophen [Tylenol] 650 mg PO Q5H PRN 11/24/16 Nystatin Powder [Mycostatin] 1 applic TP BID bottle 11/24/16 Warfarin 1.5 mg PO Q3D #0 11/24/16 zonisamide 100 mg capsule 200 mg PO HS #60 cap 02/17/17 Allergies Allergy/AdvReac Type Severity Reaction Status Date / Time ibuprofen Allergy Intermediate GI BLEEDING Verified 02/08/17 13:19 aspirin Allergy Unknown BLEEDING Verified 02/08/17 13:19 PFS Patient Stated Medical History Dementia Yes Dysphagia Yes Cardiac Arrhythmia Yes Hypertension Yes Pulmonary Embolism Yes Diabetes Mellitus Type 2 Yes: DIET Other GI Yes: COLOSTOMY Hx Urinary Tract Infection Yes Clotting Problems Yes Sepsis Yes Clinic Medical History (Last Updated 02/08/17 @ 13:22 by Helena Olivarez [facility] ) Dementia (Acute Medical) Diabetes (Acute Medical) Seizure (Acute Medical) Surgical History: General: exploratory laparotomy, other (colonoscopy). Reproductive/: hysterectomy - Social History Smoking status: Never smoker Course Vital Signs Temperature 96.0 F L 06/23/17 14:13 Pulse Rate 82 06/23/17 14:13 Respiratory Rate 20 06/23/17 14:13 Blood Pressure 82/55 06/23/17 14:13 Pulse Oximetry 99 06/23/17 14:13 Temperature 96.0 F L 06/23/17 14:13 Pulse Rate 82 06/23/17 14:13 Respiratory Rate 20 06/23/17 14:13 Blood Pressure 82/55 06/23/17 14:13 Pulse Oximetry 99 06/23/17 14:13 Disposition Prescriptions: No Action Acetaminophen [Tylenol] 650 mg PO Q5H PRN PRN Reason: Fever Warfarin 1.5 mg PO Q3D #0 Nystatin Powder [Mycostatin] 1 applic TP BID bottle zonisamide 100 mg capsule 200 mg PO HS #60 cap
[2017-06-23] MEDS ORDERED: NS 1,000 ML IV ONE ×2 (14:35→16:39)
--- NOTE | 2017-06-23 15:03 | CT Scan Report ---
Indication: unresponsive PROCEDURE: CT head/brain wo con: Encounter: Initial Comparison: November 16, 2016 Technique: Axial CT images through the head were performed without contrast. Iterative Reconstruction dose reducing technique was utilized. FINDINGS: Mild motion artifact. Mild generalized atrophy. Old left temporal lobe infarct. The ventricles are dilated but grossly stable. There are very extensive areas of low attenuation in the white matter which most likely represent changes from chronic microvascular ischemia. The brainstem, cerebellum, and cerebral hemispheres otherwise have a normal morphology and CT attenuation. There is no evidence of midline displacement. No hemorrhage, signs of acute territorial stroke, mass effect, mass lesions, or edema is evident. The visualized portions of the skull base, midface, and calvarium demonstrate no acute abnormality. The tympanic and mastoid cavities appear normal. IMPRESSION: No acute intracranial abnormality or hemorrhage. .
[2017-06-23] MEDS: SALINE FLUSH 10ml SYRINGE IVF PRN (15:08)
--- NOTE | 2017-06-23 16:04 | Ultrasound Report ---
Indication: left great toe blue rule out PROCEDURE: US venous doppler LE LT: Encounter: Initial Comparison: None Technique: Color Doppler duplex and grayscale sonographic imaging of the left lower extremity was performed. Findings: There is no evidence for acute deep venous thrombosis in the left thigh. Specifically, serial graded compression was performed from the inguinal ligament to the popliteal bifurcation, on the left thigh, demonstrating appropriate compressibility of the deep venous system. In addition, color and pulsed Doppler demonstrate appropriate spontaneous flow, variation with respiration, and augmentation with calf compression. At the ankle, normal flow is identified in the posterior tibial veins; these vessels are also normal in caliber. Impression: No evidence of acute DVT in the left lower limb. .
--- NOTE | 2017-06-23 16:07 | Ultrasound Report ---
Indication: left great toe discolored, rule out blockage PROCEDURE: US arterial duplex LE LT: Technique: Grayscale color and duplex Doppler imaging was performed of the arterial tree of the left leg. Findings: LEFT LEG (cm/sec) Common Femoral 49.8 Superficial Femoral Proximal 62.7 Mid 67 Distal 54.1 Popliteal 58.4 SANAM-prox 59 MARINE CARGO SURVEYOR-prox 59.6 SANAM-dist 58.4 MARINE CARGO SURVEYOR-dist 41.7 Dampened waveforms and velocities seen throughout the left lower extremity arteries without occlusion. These do retain a normal multiphasic shape however. IMPRESSION: Overall decreased flow throughout the left lower extremity suggesting a more proximal stenosis. No complete occlusion. .
[2017-06-23] MEDS ORDERED: CEFTRIAXONE (ER USE ONLY) 1 GM in NS 100 ML IV ONE (16:38)
[2017-06-23] MEDS ORDERED: PHYTONADIONE 10mg/ml (Adult) INJECTION SQ ONE (17:09)
--- NOTE | 2017-06-23 18:27 | History & Physical Report ---
History of Present Illness Date: 06/23/17 Chief complaint: pressure wound on coccyx, L foot turning blue HPI: Patient is a 71-year-old female brought in by EMS due to increasing size, drainage, and foul smell to her sacral pressure wound. She's not been eating and drinking for the past 4 days. Patient's daughter, who is her full-time caregiver, reports she has still been able to get her to take her medications crushed in applesauce. Daughter has noted the changes to the wound and also noted that the left foot was turning blue/purple yesterday. Patient's lives with her daughter and son-in-law who take care of her. Home health has recently been coming to help care for the wound. She has been unable to bear weight for the last 1-1/2-2 weeks. Prior to that, she could at least bear some weight and help with transfers. She has been going to wound care clinic and is currently waiting on a home wound VAC for her sacral ulcer. Patient has dementia and requires full care. Her daughter feeds her, changes her Depends, and repositions her, etc. Her daughter has noted more pressure sores developing on her lower extremities despite trying to reposition her frequently. Patient is unable to converse but daughter thinks that time she does understand things that are being said. Review of Systems ROS unobtainable: due to mental status Review of systems: Daughter reports foul odor from the wound over the sacral area, pressure sores on the lower legs, not eating or drinking, cough, L foot turning purple starting yesterday. Past Medical History Clinic Medical History Dementia Diabetes, type II-diet controlled Seizure HTN HLD Surgical History: Hysterectomy, colostomy following an initial surgery for colon polyp removal with complicated post-op course resulting in colostomy. ( 2007) Family History: Unable to elicit from pt d/t mental status Family History Updates: updated - Social History Smoking status: Never smoker Substance use type: does not use Alcohol intake frequency: does not drink Housing: house Household members: family (daughter and son-in-law care for her) Current occupational status: retired Social history: PCP- Dr. Chairez Neuro - Dr. Mejia Patient has been cared for by her daughter for over the past 10 years. Medications Home Medications Medication Instructions Recorded Confirmed Type Hydrocodone/APAP 7.5/325 [[place] 1 tab PO QID PRN 06/23/17 06/23/17 History 7.5/325] Levofloxacin [Levaquin] 500 mg PO DAILY 06/23/17 06/23/17 History Warfarin [Coumadin] 1 mg PO Q2D 06/23/17 06/23/17 History Warfarin [Coumadin] 3 mg PO Q2D 06/23/17 06/23/17 History Zonisamide [Zonegran] 200 mg PO DAILY 06/23/17 06/23/17 History Allergies Allergy/AdvReac Type Severity Reaction Status Date / Time ibuprofen Allergy Intermediate GI BLEEDING Verified 06/23/17 15:10 aspirin Allergy Unknown BLEEDING Verified 06/23/17 15:10 Exam Vital Signs: Temperature 96.0 F L 06/23/17 14:13 Pulse Rate 94 06/23/17 17:45 Respiratory Rate 20 06/23/17 14:13 Blood Pressure 97/55 06/23/17 17:45 Pulse Oximetry 96 06/23/17 17:15 - Constitutional Present: no acute distress, well nourished, well developed - Routine HEENT Exam Head: Present: normocephalic, atraumatic Eye: Present: EOMI (unable to test due to mental status). Absent: conjunctival icterus, periorbital swelling ENT: Present: mucous membranes dry - Routine Neck Exam Present: tenderness (patient appears to have some tenderness with palpation of the neck, but there is no swelling or sign of infection. She does have some torticollis to the right). Absent: lymphadenopathy, thyromegaly - Routine Respiratory Exam Present: CTA bilaterally. Absent: wheezes - Routine Cardiovascular Exam Present: irregular rhythm. Absent: murmur - Routine Abdominal Exam Present: soft, normoactive bowel sounds, non distended. Absent: tenderness Comments: Colostomy right lower quadrant - Routine Extremities Exam Present: no edema, normal capillary refill - Routine Skin Exam Present: dry, warm Comments: Approximately 4-5 cm pressure ulcer to the sacral area. This has packing which is not removed. Outer Dressing was changed. Surrounding erythema. Several pressure ulcerations to the inner legs bilaterally. - Routine Neurological Exam Present: altered mental status. Absent: moving all extremities, normal speech, tremors She cannot purposefully respond to questions, however, she nods her head "yes" when I say her daughter takes good care of her and she slightly smiles. - Routine Psychiatric Exam Present: unable to assess Comments: She is calm and not agitated. She will make eye contact at times. Results - Labs CBC & Chem 7: 06/23/17 15:05 06/23/17 15:05 Labs: Laboratory Tests 06/23/17 06/23/17 06/23/17 15:05 17:00 17:00 INR > 10.00 H* Plasma Lactate 2.1 Procalcitonin 0.37 Urinalysis 06/23/17 15:58 Urine Color Yellow Urine Clarity Cloudy Urine pH 5.5 Ur Specific [place] 1.025 Urine Protein Trace A Urine Glucose (UA) Negative Urine Ketones Negative Urine Occult Blood 3+ A Urine Nitrate Negative Urine Bilirubin Negative Urine Urobilinogen 0.2 Ur Leukocyte Esterase 3+ A Urine RBC 3-5 H Urine WBC Tntc H Ur Squamous Epith Cells 0-5 Amorphous Sediment Many Urine Bacteria 2+ H - Imaging and Cardiology Venous US Additional comments: Date of Exam: 06/23/17 Ordering Provider: Tyler Ruelas MD Type of Exam(s): US venous doppler LE LT Reason for Exam(s): left great toe blue rule out Indication: left great toe blue rule out PROCEDURE: US venous doppler LE LT: Encounter: Initial Comparison: None Technique: Color Doppler duplex and grayscale sonographic imaging of the left lower extremity was performed. Findings: There is no evidence for acute deep venous thrombosis in the left thigh. Specifically, serial graded compression was performed from the inguinal ligament to the popliteal bifurcation, on the left thigh, demonstrating appropriate compressibility of the deep venous system. In addition, color and pulsed Doppler demonstrate appropriate spontaneous flow, variation with respiration, and augmentation with calf compression. At the ankle, normal flow is identified in the posterior tibial veins; these vessels are also normal in caliber. Impression: No evidence of acute DVT in the left lower limb. left lower extremity arterial duplex sono Additional comments: Date of Exam: 06/23/17 Ordering Provider: Tyler Ruelas MD Type of Exam(s): US arterial duplex LE LT Reason for Exam(s): left great toe discolored, rule out blockage Indication: left great toe discolored, rule out blockage PROCEDURE: US arterial duplex LE LT: Technique: Grayscale color and duplex Doppler imaging was performed of the arterial tree of the left leg. Findings: LEFT LEG (cm/sec) Common Femoral 49.8 Superficial Femoral Proximal 62.7 Mid 67 Distal 54.1 Popliteal 58.4 SANAM-prox 59 GROUND OPERATIONS CREW MEMBER-prox 59.6 SANAM-dist 58.4 GROUND OPERATIONS CREW MEMBER-dist 41.7 Dampened waveforms and velocities seen throughout the left lower extremity arteries without occlusion. These do retain a normal multiphasic shape however. IMPRESSION: Overall decreased flow throughout the left lower extremity suggesting a more proximal stenosis. No complete occlusion. CT scan - head Additional comments: Date of Exam: 06/23/17 Ordering Provider: Tyler Ruelas MD Type of Exam(s): CT head/brain wo con Reason for Exam(s): unresponsive Indication: unresponsive PROCEDURE: CT head/brain wo con: Encounter: Initial Comparison: November 16, 2016 Technique: Axial CT images through the head were performed without contrast. Iterative Reconstruction dose reducing technique was utilized. FINDINGS: Mild motion artifact. Mild generalized atrophy. Old left temporal lobe infarct. The ventricles are dilated but grossly stable. There are very extensive areas of low attenuation in the white matter which most likely represent changes from chronic microvascular ischemia. The brainstem, cerebellum, and cerebral hemispheres otherwise have a normal morphology and CT attenuation. There is no evidence of midline displacement. No hemorrhage, signs of acute territorial stroke, mass effect, mass lesions, or edema is evident. The visualized portions of the skull base, midface, and calvarium demonstrate no acute abnormality. The tympanic and mastoid cavities appear normal. IMPRESSION: No acute intracranial abnormality or hemorrhage. Assessment and Plan (1) Severe sepsis Current visit: Yes Status: Acute (2) Hypernatremia Current visit: No Status: Acute (3) Type II diabetes mellitus Current visit: No Status: Chronic (4) HTN (hypertension) Current visit: No Status: Chronic (5) Hyperlipidemia Current visit: No Status: Chronic (6) Paroxysmal atrial fibrillation Current visit: No Status: Chronic (7) Anticoagulated on Coumadin Current visit: No Status: Chronic (8) Seizure disorder Current visit: No Status: Chronic (9) Thrombocytopenia Current visit: No Status: Chronic Assessment and Plan: Assessment Severe sepsis based on urinary source of infection, SIRS criteria of leukocytosis, tachycardia and temperature less than 96.8 and organ dysfunction evidenced by SBP< 90, elevated creatinine, thrombocytopenia, MAP< 65, INR >1.5 Severe hypernatremia (Na 177 on admission) UTI JULIANA (creatinine 3.1 on admission) Peripheral vascular disease Sacral pressure ulcer/leg ulcerations Dementia Diabetes, type II-diet controlled Seizure HTN HLD Paroxysmal A. fib History of PE following colon surgery (2007) Plan Admit inpatient to CCU under the hospitalist service, Dr. Hernandes attending. Patient's stay is expected to exceed 2 overnights given her severe sepsis and comorbidities. IVF's bolused in ER per sepsis protocol and will be continued for hypernatremia , JULIANA, etc. Accu-Cheks before meals and at bedtime and sliding scale insulin when necessary Speech therapy consult to assess swallowing function and assist in diet recommendations Ceftriaxone given in ER. Will continue daily dosing for UTI and infection to pressure ulcer. Consult wound team for treatment of pressure ulcers. Place Flores for accurate I&O measurements. Coumadin on hold given elevated INR. Vitamin K ordered. At this time, patient's daughter (DPOA-H) requests full code, but this may be negotiable at a future time. Care to return to Dr. Chairez on dismissal. DVT Prophylaxis: Coumadin Resuscitation Status: Full Code - Physician Narrative Physician: Abhilash Hernandes MD Narrative: Date: 06/23/17 Time: 1944 Have independently interviewed and examined pt. Chart reviewed. Case discussed with ED physician and my PA. Care plan developed with my supervision; agree with above. Presents to ED secondary to purplish color change to toe. Has been working with wound team on her sacral decubitus ulcer. Not been eating/drinking well the past several days. Less responsive. Some cough, but breathing has not been labored. Lungs: decreased, upper airway noises CV: regular AB: soft nt/nd EXT: thin, no edema. MSE: somnolent, will open eyes but not respond. Plan: Inpatient admission to CCU for treatment of severe sepsis and severe dehydration. 30mg/kg bolus given in ED. Will continue with 1/2NS at 150 cc/hr to help BP and normalize sodium. Rocephin for urinary coverage. Wound team to evaluated sacral decubitus ulcer. NPO until awake and alert. Monitor lab. Overall prognosis not favorable - very acutely ill, and worry her chronic illness have lead to this acute illness despite family's best care at home. Hospital Course Summary Disclaimer: The visit summary below is not to be considered part of the above Progress Note. Hospital Course: Assessment Severe sepsis based on urinary source of infection, SIRS criteria of leukocytosis, tachycardia and temperature less than 96.8 and organ dysfunction evidenced by SBP< 90, elevated creatinine, thrombocytopenia, MAP< 65, INR >1.5 Severe hypernatremia (Na 177 on admission) UTI JULIANA (creatinine 3.1 on admission) Peripheral vascular disease Sacral pressure ulcer/leg ulcerations Dementia Diabetes, type II-diet controlled Seizure HTN HLD Paroxysmal A. fib History of PE following colon surgery (2007) 06/23/17-hospital admission (CCU) Admit inpatient to CCU under the hospitalist service, Dr. Hernandes attending. Patient's stay is expected to exceed 2 overnights given her severe sepsis and comorbidities. IVF's bolused in ER per sepsis protocol and will be continued for hypernatremia , JULIANA, etc. Speech therapy consult to assess swallowing function and assist in diet recommendations Ceftriaxone given in ER. Will continue daily dosing for UTI and infection to pressure ulcer. Consult wound team for treatment of pressure ulcers. Place Flores for accurate I&O measurements. Coumadin on hold given elevated INR. Vitamin K ordered. At this time, patient's daughter (DPOA-H) requests full code, but this may be negotiable at a future time. Care to return to Dr. Chairez on dismissal.
[2017-06-23] MEDS: 1/2 NS 1,000 ML IV SCH (18:29)
[2017-06-24] MEDS: 1/2 NS 1,000 ML IV SCH ×4 (01:49→21:21)
[2017-06-24] MEDS: CEFTRIAXONE 1 G in NS 100 ML IV SCH (08:10)
[2017-06-24] MEDS ORDERED: 1/2 NS 500 ML IV SCH (09:00)
[2017-06-24] MEDS ORDERED: PHYTONADIONE 10mg/ml (Adult) INJECTION SQ ONE (09:47)
--- NOTE | 2017-06-24 10:38 | Progress Note ---
- Date 06/24/17 Subjective: F/U: Severe sepsis, UTI, Severe hypernatremia, JULIANA Resting in bed. Opens eyes and will move arms spontaneously, but nonverbal. Speech working with patient when I came in for evaluation-not swallow response. Maintaining saturations on RA. Objective Vital signs: Temperature 96.3 F L 06/24/17 04:00 Pulse Rate 105 H 06/24/17 06:00 Respiratory Rate 21 06/24/17 06:00 Blood Pressure 87/54 06/24/17 06:00 Pulse Oximetry 98 06/24/17 06:00 Height/Weight/BMI: Height 1.63 m Weight 62.4 kg Body Mass Index 19.4 - Constitutional Present: well developed, average body habitus - Routine HEENT Exam Head: Present: normocephalic, atraumatic Eye: Present: EOMI, PERRL - Routine Respiratory Exam Present: decreased breath sounds. Absent: rales, respiratory distress, rhonchi , stridor, wheezes, crackles, distant breath sounds, diminished air movement - Routine Cardiovascular Exam Present: RRR, no murmur - Routine Abdominal Exam Present: soft, normoactive bowel sounds. Absent: non distended, non tender - Routine Extremities Exam Present: no edema, pulses intact. Absent: cyanosis, clubbing - Routine Musculoskeletal Exam Musculoskeletal: Present: no clubbing or cyanosis - Routine Skin Exam Present: dry, warm - Routine Neurological Exam Moves upper ext spontaneously. - Routine Psychiatric Exam Absent: anxious, agitated Comments: Non verbal Results - Labs CBC & Chem 7: 06/24/17 05:22 06/24/17 05:22 Assessment and Plan (1) Severe sepsis Current visit: Yes Status: Acute (2) Hypernatremia Current visit: No Status: Acute (3) Type II diabetes mellitus Current visit: No Status: Chronic (4) HTN (hypertension) Current visit: No Status: Chronic (5) Hyperlipidemia Current visit: No Status: Chronic (6) Paroxysmal atrial fibrillation Current visit: No Status: Chronic (7) Anticoagulated on Coumadin Current visit: No Status: Chronic (8) Seizure disorder Current visit: No Status: Chronic (9) Thrombocytopenia Current visit: No Status: Chronic Assessment and Plan: Assessment Severe sepsis based on urinary source of infection, SIRS criteria of leukocytosis, tachycardia and temperature less than 96.8 and organ dysfunction evidenced by SBP< 90, elevated creatinine, thrombocytopenia, MAP< 65, INR >1.5 Severe hypernatremia (Na 177 on admission) UTI JULIANA (creatinine 3.1 on admission) Elevated INR (INR >10 at presentation) Peripheral vascular disease Sacral pressure ulcer/leg ulcerations (POA) Dementia Diabetes, type II-diet controlled Seizure HTN HLD Paroxysmal A. fib History of PE following colon surgery (2007) Plan Continue Rocephin for urinary coverage. Urine culture with early growth. Serum sodium with slight decrease to 172 and creatinine decrease to 2.5. Continue 1/2NS at 150 cc/hr - 500 cc bolus this am as BP running low. INR above 10 - Vit K 5mg SQ x1. Speech working with patient - NPO therapeutic as swallow delayed. Wound team for sacral decubitus ulcer - likely need wound vac. Recheck BMP in am due to JULIANA and hypernatremia. Repeat CBC in am due to Sepsis. Case discussed with CCU nursing. Time spent with patient care 25 minutes. DVT Prophylaxis: SCD's, Coumadin Resuscitation Status: Full Code - Time spent with patient Time with patient PN: 25 minutes - Physician Narrative Physician: Abhilash Hernandes MD Narrative: Date: 06/24/17 Time: 1032 Hospital Course Summary Disclaimer: The visit summary below is not to be considered part of the above Progress Note. Hospital Course: 06/23/17-hospital admission (CCU) Admit inpatient to CCU under the hospitalist service, Dr. Hernandes attending. Patient's stay is expected to exceed 2 overnights given her severe sepsis and comorbidities. IVF's bolused in ER per sepsis protocol and will be continued for hypernatremia , JULIANA, etc. Speech therapy consult to assess swallowing function and assist in diet recommendations. Ceftriaxone given in ER. Will continue daily dosing for UTI and infection to pressure ulcer. Consult wound team for treatment of pressure ulcers. Place Flores for accurate I&O measurements. Coumadin on hold given elevated INR. Vitamin K ordered. At this time, patient's daughter (DPOA-H) requests full code, but this may be negotiable at a future time. Care to return to Dr. Chairez on dismissal. 06/24/17 More alert-opens eyes and will move upper ext spontaneously. Non verbal. Continue Rocephin for urinary coverage. Urine culture with early growth. Serum sodium with slight decrease to 172 and creatinine decrease to 2.5. Continue 1/2NS at 150 cc/hr - 500 cc bolus this am as BP running low. INR above 10 - Vit K 5mg SQ x1. Speech working with patient - NPO therapeutic as swallow delayed. Wound team for sacral decubitus ulcer - likely need wound vac.
--- NOTE | 2017-06-24 14:42 | Wound Care Progress Note ---
Wound Center Progress Note: Pt seen for wound consultation, seen with pt's nurse. Pt is lying in bed, FLACC- 2. Pt has multiple wounds; R lateral malleolus, L medial lower leg, bilateral medial knees, and coccyx. Bilateral heels are dry, fissures, no open areas at this time. Wounds: 1) Coccyx: stage 4 PI, yellow black stringy slough and eschar, moderate seropurulent drainage, malodor. Periwound: Blanchable erythema, increased pain with palpation. 2) Bilateral medial knees: stage 3 PIs with yellow adherent slough, no drainage. Periwound: blanchable erythema. 3) L medial lower leg: stage 3 PI with adherent eschar, dried scant serosanguineous drainage on dressing removed. Periwound: blanchable erythema. 4) R lateral malleolus: US PI , with slough/eschar, dried scant serosanguineous drainage on dressing removed. Periwound: nonblanchable purple discoloration. Wound dressings: 1) To coccyx: Wound vac applied, dressing bridged to to L flank , black foam collapsed without leaks, running at 125 mm Hg continuous pressure. Wound vac dressing changes Wednesday and . 2) To bilateral medial knees/R lateral malleolus/L medial lower leg wounds: Saltese wounds with Betadine and cover with Mepilex border, change q 3 days. Off load with regular repositioning, float heels, place pillow between knees.
--- NOTE | 2017-06-24 14:45 | Wound Care Progress Note ---
Wound Management - Patient Status Premedicated Prior to Dressing Change: No - Wound Right Lateral Ankle Wound Type: Pressure Injury Wound Present on Admission?: Yes Wound Staging: Unstageable Length: 0.4 Width: 0.5 Wound Bed Appearance: Eschar Geovanna Wound Appearance: Purple Tunneling: No Undermining: No Drainage Amount: None Drainage Odor: No Odor Dressing Status: Changed Primary Dressing: Foam Dressing (Painted with betadine) Dressing Change Date: 06/24/17 Dressing Change Time: 14:00
--- NOTE | 2017-06-24 14:49 | Wound Care Progress Note ---
Wound Management - Patient Status Premedicated Prior to Dressing Change: No - Wound Left Medial Distal Leg Wound Type: Pressure Injury Wound Present on Admission?: Yes Wound Staging: Stage III Length: 1.5 Width: 1 Wound Bed Appearance: [place], Eschar Geovanna Wound Appearance: Dark Red Tunneling: No Undermining: No Drainage Amount: None Drainage Odor: No Odor Dressing Status: Changed Primary Dressing: Foam Dressing (painted with betadine) Dressing Change Date: 06/24/17 Dressing Change Time: 14:00 Bilateral Medial Knee Wound Type: Pressure Injury Wound Present on Admission?: Yes Wound Staging: Stage III Length: 1.5 (1.5 x 4.2-Right knee) Width: 4.2 (2.5 x 1.3-Left knee) Wound Bed Appearance: [place] Geovanna Wound Appearance: Dark Red Tunneling: No Undermining: No Drainage Amount: None Drainage Odor: No Odor Primary Dressing: Foam Dressing (Painted with betadine) Dressing Change Date: 06/24/17 Dressing Change Time: 14:00 Buttock Wound Type: Pressure Injury Wound Present on Admission?: Yes Wound Staging: Stage IV Length: 3.6 (wound on coccyx) Width: 2.9 Depth: 2.7 Wound Bed Appearance: [place], Eschar Geovanna Wound Appearance: Dark Red Wound Underminin.5 (From 9-3 oclock) Drainage Description: seropurulent Drainage Amount: Moderate Drainage Odor: Foul Odor Dressing Status: Changed Primary Dressing: Trac Pad, Foam Dressing Secondary Dressing: Trac Pad, Hydrocolloid Dressing Change Date: 06/24/17 Dressing Change Time: 14:00 Dressing Change Patient Tolerance: Tolerated Well (Wound Vac applied, M/R changes, 125 mm Hg continuous pressure.)
[2017-06-25] MEDS: 1/2 NS 1,000 ML IV SCH ×2 (04:14→09:36)
[2017-06-25] MEDS: 1/2 NS 500 ML IV SCH ×4 (06:48→14:35)
[2017-06-25] MEDS ORDERED: DEXTROSE 50% SYRINGE 50ml (1 AMP) IVP PRN (06:52)
[2017-06-25] MEDS: CEFTRIAXONE 1 G in NS 100 ML IV SCH (09:30)
[2017-06-25] MEDS: POTASSIUM CHLORIDE INJ 20 MEQ in D5W 1,000 ML IV SCH ×2 (10:12→19:47)
--- NOTE | 2017-06-25 12:55 | Progress Note ---
- Date 06/25/17 Subjective: F/U: Severe sepsis, UTI, Severe hypernatremia, JULIANA Resting in bed. Opens eyes, not tracking or following commands. Was able to eat with speech therapy help. Creatinine improving. Urine output increasing. BP running low-Boluses given. Objective Vital signs: Temperature 97.0 F 06/25/17 12:00 Pulse Rate 65 06/25/17 12:30 Respiratory Rate 19 06/25/17 12:30 Blood Pressure 76/50 06/25/17 12:30 Pulse Oximetry 93 06/25/17 12:30 Height/Weight/BMI: Height 1.63 m Weight 62.4 kg Body Mass Index 19.4 - Constitutional Present: well nourished, well developed, somnolent - Routine HEENT Exam Head: Present: normocephalic, atraumatic Eye: Present: EOMI ENT: Present: mucous membranes dry - Routine Respiratory Exam Present: decreased breath sounds. Absent: rales, respiratory distress, rhonchi , wheezes, crackles - Routine Cardiovascular Exam Present: RRR, no murmur - Routine Abdominal Exam Present: soft, non distended, non tender. Absent: normoactive bowel sounds ( Decreased ) - Routine Extremities Exam Present: no edema, pulses intact. Absent: cyanosis, clubbing - Routine Musculoskeletal Exam Musculoskeletal: Absent: no clubbing or cyanosis - Routine Skin Exam Present: warm - Routine Neurological Exam Non verbal. - Routine Psychiatric Exam Absent: anxious, agitated Results - Labs CBC & Chem 7: 06/25/17 05:15 06/25/17 05:15 Assessment and Plan (1) Severe sepsis Current visit: Yes Status: Acute (2) Hypernatremia Current visit: No Status: Acute (3) Type II diabetes mellitus Current visit: No Status: Chronic (4) HTN (hypertension) Current visit: No Status: Chronic (5) Hyperlipidemia Current visit: No Status: Chronic (6) Paroxysmal atrial fibrillation Current visit: No Status: Chronic (7) Anticoagulated on Coumadin Current visit: No Status: Chronic (8) Seizure disorder Current visit: No Status: Chronic (9) Thrombocytopenia Current visit: No Status: Chronic Assessment and Plan: Assessment Severe sepsis based on urinary source of infection, SIRS criteria of leukocytosis, tachycardia and temperature less than 96.8 and organ dysfunction evidenced by SBP< 90, elevated creatinine, thrombocytopenia, MAP< 65, INR >1.5 Severe hypernatremia (Na 177 on admission) UTI - Gram positive cocci growing JULIANA (creatinine 3.1 on admission) Elevated INR (INR >10 at presentation) Peripheral vascular disease Sacral pressure ulcer/leg ulcerations (POA) Dementia Diabetes, type II-diet controlled Seizure HTN HLD Paroxysmal A. fib History of PE following colon surgery (2007) Plan Continue Rocephin for urinary coverage. Urine culture growing gram positive cocci. Serum sodium with decrease to 163 and creatinine decrease to 2.0. Change IVF to D5W with 20KCl at 125cc/hr. IV boluses as needed to help blood pressure. INR decreased to 4.4 - continue to monitor. Speech working with patient - Starting to have oral intake. Wound team for sacral decubitus ulcer - wound vac placed yesterday. Recheck CMP in am due to JULIANA and hypernatremia. Repeat CBC in am due to Sepsis. Case discussed with CCU nursing. Time spent with patient care 25 minutes. DVT Prophylaxis: SCD's, Coumadin Resuscitation Status: Full Code - Physician Narrative Physician: Abhilash Hernandes MD Narrative: Date: 06/25/17 Time: 1251 Hospital Course Summary Disclaimer: The visit summary below is not to be considered part of the above Progress Note. Hospital Course: 06/23/17-hospital admission (CCU) Admit inpatient to CCU under the hospitalist service, Dr. Hernandes attending. Patient's stay is expected to exceed 2 overnights given her severe sepsis and comorbidities. IVF's bolused in ER per sepsis protocol and will be continued for hypernatremia , JULIANA, etc. Speech therapy consult to assess swallowing function and assist in diet recommendations. Ceftriaxone given in ER. Will continue daily dosing for UTI and infection to pressure ulcer. Consult wound team for treatment of pressure ulcers. Place Flores for accurate I&O measurements. Coumadin on hold given elevated INR. Vitamin K ordered. At this time, patient's daughter (DPOA-H) requests full code, but this may be negotiable at a future time. Care to return to Dr. Chairez on dismissal. 06/24/17 More alert-opens eyes and will move upper ext spontaneously. Non verbal. Continue Rocephin for urinary coverage. Urine culture with early growth. Serum sodium with slight decrease to 172 and creatinine decrease to 2.5. Continue 1/2NS at 150 cc/hr - 500 cc bolus this am as BP running low. INR above 10 - Vit K 5mg SQ x1. Speech working with patient - NPO therapeutic as swallow delayed. Wound team for sacral decubitus ulcer - likely need wound vac. 06/25/17 Slight improvement in mentation. Continue Rocephin for urinary coverage. Urine culture growing gram positive cocci. Serum sodium with decrease to 163 and creatinine decrease to 2.0. Change IVF to D5W with 20KCl at 125cc/hr. IV boluses as needed to help blood pressure. INR decreased to 4.4 - continue to monitor. Speech working with patient - Starting to have oral intake. Wound team for sacral decubitus ulcer - wound vac placed yesterday.
[2017-06-25] MEDS: INSULIN ASPART 100unit/ml INJECTION SQ PRN (20:40)
[2017-06-26] MEDS: LR 500 ML IV SCH (02:37)
[2017-06-26] MEDS: POTASSIUM CHLORIDE INJ 20 MEQ in D5W 1,000 ML IV SCH ×3 (04:28→20:01)
[2017-06-26] MEDS: INSULIN ASPART 100unit/ml INJECTION SQ PRN ×2 (06:08→21:50)
[2017-06-26] MEDS: CEFTRIAXONE 1 G in NS 100 ML IV SCH (09:32)
[2017-06-26] MEDS ORDERED: WARFARIN - PHARMACY CONSULT MC ONE (12:54)
--- NOTE | 2017-06-26 13:49 | Progress Note ---
- Date 06/26/17 Subjective: F/U: Severe sepsis, UTI, Severe hypernatremia, JULIANA Sitting in bed. Eyes open, will move arms spontaneously. Nonverbal. Oral drive diminished-not able to take po even with assistance. BP variable-did receive bolus overnight due to low pressure. Maintaining saturations, but lungs sounding more course. Sodium with decrease to 159. Creatinine 1.5. INR decreased to 1.97. Objective Vital signs: Temperature 98 F 06/26/17 04:00 Pulse Rate 60 06/26/17 11:15 Respiratory Rate 22 06/26/17 11:15 Blood Pressure 89/54 06/26/17 11:15 Pulse Oximetry 98 06/26/17 11:15 Height/Weight/BMI: Height 1.63 m Weight 66.7 kg Body Mass Index 19.4 - Constitutional Present: no acute distress, well nourished, well developed - Routine HEENT Exam Head: Present: normocephalic, atraumatic ENT: Present: mucous membranes dry - Routine Respiratory Exam Present: decreased breath sounds, crackles. Absent: respiratory distress - Routine Cardiovascular Exam Present: RRR, no murmur - Routine Abdominal Exam Present: soft, normoactive bowel sounds, non distended, non tender - Routine Exam Comments: Flores present - Routine Extremities Exam Present: no edema, pulses intact. Absent: cyanosis, clubbing - Routine Musculoskeletal Exam Musculoskeletal: Present: no clubbing or cyanosis - Routine Skin Exam Present: dry, warm - Routine Neurological Exam Present: altered mental status - Routine Psychiatric Exam Absent: anxious, agitated Results - Labs CBC & Chem 7: 06/26/17 02:06 06/26/17 02:11 Assessment and Plan (1) Severe sepsis Current visit: Yes Status: Acute (2) Hypernatremia Current visit: No Status: Acute (3) Type II diabetes mellitus Current visit: No Status: Chronic (4) HTN (hypertension) Current visit: No Status: Chronic (5) Hyperlipidemia Current visit: No Status: Chronic (6) Paroxysmal atrial fibrillation Current visit: No Status: Chronic (7) Anticoagulated on Coumadin Current visit: No Status: Chronic (8) Seizure disorder Current visit: No Status: Chronic (9) Thrombocytopenia Current visit: No Status: Chronic Assessment and Plan: Assessment Severe sepsis based on urinary source of infection, SIRS criteria of leukocytosis, tachycardia and temperature less than 96.8 and organ dysfunction evidenced by SBP< 90, elevated creatinine, thrombocytopenia, MAP< 65, INR >1.5 Severe hypernatremia (Na 177 on admission) UTI - Enterococcus faecalis growing JULIANA (creatinine 3.1 on admission) Elevated INR (INR >10 at presentation) Peripheral vascular disease Sacral pressure ulcer/leg ulcerations (POA) Dementia Diabetes, type II-diet controlled Seizure HTN HLD Paroxysmal A. fib History of PE following colon surgery (2007) Plan Will change to Ampicillin secondary to Enterococcus faecalis in urine. Could restart Coumadin per protocol as INR decreased. Continue with D5W with 20KCl at 125cc/hr. Check portable CXR secondary to chest congestion. Speech working with patient - Starting to have oral intake. Continue wound vac for decubitus ulcer. Recheck BMP in am due to JULIANA and hypernatremia. Repeat CBC in am due to Sepsis. Case discussed with CCU nursing. Time spent with patient care 25 minutes. DVT Prophylaxis: SCD's, Coumadin Resuscitation Status: Full Code - Time spent with patient Time with patient PN: 25 minutes - Physician Narrative Physician: Abhilash Hernandes MD Narrative: Date: 06/26/17 Time: 7864 Hospital Course Summary Disclaimer: The visit summary below is not to be considered part of the above Progress Note. Hospital Course: 06/23/17-hospital admission (CCU) Admit inpatient to CCU under the hospitalist service, Dr. Hernandes attending. Patient's stay is expected to exceed 2 overnights given her severe sepsis and comorbidities. IVF's bolused in ER per sepsis protocol and will be continued for hypernatremia , JULIANA, etc. Speech therapy consult to assess swallowing function and assist in diet recommendations. Ceftriaxone given in ER. Will continue daily dosing for UTI and infection to pressure ulcer. Consult wound team for treatment of pressure ulcers. Place Flores for accurate I&O measurements. Coumadin on hold given elevated INR. Vitamin K ordered. At this time, patient's daughter (DPOA-H) requests full code, but this may be negotiable at a future time. Care to return to Dr. Chairez on dismissal. 06/24/17 More alert-opens eyes and will move upper ext spontaneously. Non verbal. Continue Rocephin for urinary coverage. Urine culture with early growth. Serum sodium with slight decrease to 172 and creatinine decrease to 2.5. Continue 1/2NS at 150 cc/hr - 500 cc bolus this am as BP running low. INR above 10 - Vit K 5mg SQ x1. Speech working with patient - NPO therapeutic as swallow delayed. Wound team for sacral decubitus ulcer - likely need wound vac. 06/25/17 Slight improvement in mentation. Continue Rocephin for urinary coverage. Urine culture growing gram positive cocci. Serum sodium with decrease to 163 and creatinine decrease to 2.0. Change IVF to D5W with 20KCl at 125cc/hr. IV boluses as needed to help blood pressure. INR decreased to 4.4 - continue to monitor. Speech working with patient - Starting to have oral intake. Wound team for sacral decubitus ulcer - wound vac placed yesterday. 06/26/17 Sitting in bed. Eyes open, will move arms spontaneously. Nonverbal. Oral drive diminished-not able to take po even with assistance. BP variable-did receive bolus overnight due to low pressure. Maintaining saturations, but lungs sounding more course. Check portable CXR. Sodium with decrease to 159. Creatinine 1.5. Continue with D5W with 20KCl at 125cc/hr. INR decreased to 1.97. Could restart Coumadin per protocol as INR decreased. Will change to Ampicillin secondary to Enterococcus faecalis in urine. Speech working with patient - Starting to have oral intake. Continue wound vac for decubitus ulcer.
[2017-06-26] MEDS ORDERED: WARFARIN 2 MG TABLET PO ONE (14:30)
--- NOTE | 2017-06-26 14:32 | Pharmacy Consult ---
Pharmacy Consult-Warfarin - Laboratory Information 06/24/17 06/25/17 06/26/17 05:16 05:14 02:06 INR > 10.00 H* 4.14 H 1.97 H - Consult Information Consult noted by Dr Hernandes for a warfarin protocol for Ms Jacques, a 71 yo female with atrial fib. Target INR is 2-3. Her INR was 10 three days ago and has received 15mg total of Vit K on 06/23 and 06/24. Ordered warfarin 2mg po today , will follow INR tomorrow. Thank you.
[2017-06-26] MEDS: AMPICILLIN 1 GM in NS 100 ML IV SCH ×2 (16:48→20:01)
[2017-06-27] MEDS: AMPICILLIN 1 GM in NS 100 ML IV SCH ×3 (03:10→14:16)
[2017-06-27] MEDS: POTASSIUM CHLORIDE INJ 20 MEQ in D5W 1,000 ML IV SCH (05:01)
[2017-06-27] MEDS: INSULIN ASPART 100unit/ml INJECTION SQ PRN ×2 (06:16→16:29)
--- NOTE | 2017-06-27 10:26 | Pharmacy Consult ---
Pharmacy Consult-Warfarin - Laboratory Information 06/24/17 06/25/17 06/26/17 05:16 05:14 02:06 INR > 10.00 H* 4.14 H 1.97 H 06/27/17 04:43 INR 1.52 H - Consult Information COUMADIN CONSULT (Recurring): EM is a 71 yo female brought in by EMS due to increasing size, drainage, and foul smell to her sacral pressure wound. CC: pressure wound on coccyx, L foot turning blue. Patient has paroxysmal atrial fibrillation with ongoing anticoagulation therapy with Warfarin. The patient had an INR of 10.00 at admission. The patient was given phytonadione 10 mg by sq injection on 06/23, and phytonadione 5 mg bu sq injection on 06/24. Date INR Dose 06/26 1.97 2 mg 06/27 1.52 Plan 2 mg The patient's home dose of warfarin was alternating daily therapy with 2 mg one day and 1 mg the next day. I am going to give Warfarin 2 mg today to push the INR into to the goal range of 2.0-3.0. The Pharmacy will continue to monitor the INR's and adjust the dosage of the Coumadin accordingly. Thank you for the Warfarin Dosing Protocol, Marcial Pham, Pharmacist.
--- NOTE | 2017-06-27 10:37 | XRay Report ---
Indication: chest congestion PROCEDURE: XR chest 1V: Encounter: Initial Comparison: November 17, 2016 Findings: Persistent interstitial prominence with hypoinflated lungs. No lobar consolidation. No pleural effusion or pneumothorax. Heart size and mediastinal contours are stable. Pulmonary vascularity is slightly indistinct. Impression: Continued interstitial prominence may relate to moderate edema or atypical/viral pneumonia. .
[2017-06-27] MEDS ORDERED: WARFARIN 2 MG TABLET PO SCH (12:00)
[2017-06-27] MEDS ORDERED: ENOXAPARIN 40 MG/0.4 ML INJECTION SQ ONE (13:41)
--- NOTE | 2017-06-27 13:52 | Progress Note ---
- Date 06/27/17 Subjective: F/U: Severe sepsis, UTI, Severe hypernatremia, JULIANA Nursing report patient oral intake with slight improvement-had about 40% of lunch, was able to take oral Coumadin. Nursing not reporting patient has been having pain or agitation. Maintaining saturations, but lungs sound more course. Patient non verbal. Will move eyes, but not following commands. Objective Vital signs: Temperature 97.5 F 06/27/17 09:29 Pulse Rate 68 06/27/17 12:04 Respiratory Rate 20 06/27/17 07:00 Blood Pressure 89/54 06/27/17 07:00 Pulse Oximetry 97 06/27/17 07:00 Height/Weight/BMI: Height 1.63 m Weight 67.9 kg Body Mass Index 19.4 - Constitutional Present: well nourished, well developed. Absent: combative, agitated - Routine HEENT Exam Head: Present: normocephalic, atraumatic Eye: Present: EOMI, PERRL - Routine Respiratory Exam Present: decreased breath sounds (Coarse bilaterally ). Absent: respiratory distress - Routine Cardiovascular Exam Present: RRR, no murmur - Routine Abdominal Exam Present: soft, normoactive bowel sounds. Absent: non distended, non tender - Routine Extremities Exam Present: no edema, pulses intact. Absent: cyanosis, clubbing - Routine Musculoskeletal Exam Musculoskeletal: Present: no clubbing or cyanosis, contractures (Hands bilaterally ) - Routine Skin Exam Present: dry, warm - Routine Neurological Exam Will move eyes spontaneously. Turns head. Little other movement. - Routine Psychiatric Exam Absent: anxious, agitated Comments: Non verbal Results - Labs CBC & Chem 7: 06/27/17 04:43 06/27/17 04:43 Assessment and Plan (1) Severe sepsis Current visit: Yes Status: Acute (2) Hypernatremia Current visit: No Status: Acute (3) Type II diabetes mellitus Current visit: No Status: Chronic (4) HTN (hypertension) Current visit: No Status: Chronic (5) Hyperlipidemia Current visit: No Status: Chronic (6) Paroxysmal atrial fibrillation Current visit: No Status: Chronic (7) Anticoagulated on Coumadin Current visit: No Status: Chronic (8) Seizure disorder Current visit: No Status: Chronic (9) Thrombocytopenia Current visit: No Status: Chronic Assessment and Plan: Assessment Severe sepsis based on urinary source of infection, SIRS criteria of leukocytosis, tachycardia and temperature less than 96.8 and organ dysfunction evidenced by SBP< 90, elevated creatinine, thrombocytopenia, MAP< 65, INR >1.5 Severe hypernatremia (Na 177 on admission) UTI - Enterococcus faecalis growing JULIANA (creatinine 3.1 on admission) - resolved Elevated INR (INR >10 at presentation) Peripheral vascular disease Sacral pressure ulcer/leg ulcerations (POA) Dementia Diabetes, type II-diet controlled Seizure HTN HLD Paroxysmal A. fib History of PE following colon surgery (2007) Plan Continue Ampicillin for urinary coverage of Enterococcus faecalis. Coumadin restarted. Will give Lovenox 40mg SQ x1. Potassium with decrease to 2.9. Creatinine decrease to 1.2. Will give IV potassium boluses and then change IVF to D5W with 40KCl at 125cc /hr. Continue wound vac for decubitus ulcer. Oral intake as patient able. Blood pressure still low, but not seeing continued evidence for sepsis - can transfer to medical floor for continued care. Recheck BMP and Mg in am due to JULIANA and hypernatremia. Repeat CBC in am due to resolving sepsis. Case discussed with CCU nursing. Time spent with patient care 25 minutes. DVT Prophylaxis: Lovenox, Coumadin Resuscitation Status: Full Code - Time spent with patient Time with patient PN: 25 minutes - Physician Narrative Physician: Abhilash Hernandes MD Narrative: Date: 06/27/17 Time: 6506 Hospital Course Summary Disclaimer: The visit summary below is not to be considered part of the above Progress Note. Hospital Course: 06/23/17-hospital admission (CCU) Admit inpatient to CCU under the hospitalist service, Dr. Hernandes attending. Patient's stay is expected to exceed 2 overnights given her severe sepsis and comorbidities. IVF's bolused in ER per sepsis protocol and will be continued for hypernatremia , JULIANA, etc. Speech therapy consult to assess swallowing function and assist in diet recommendations. Ceftriaxone given in ER. Will continue daily dosing for UTI and infection to pressure ulcer. Consult wound team for treatment of pressure ulcers. Place Flores for accurate I&O measurements. Coumadin on hold given elevated INR. Vitamin K ordered. At this time, patient's daughter (DPOA-H) requests full code, but this may be negotiable at a future time. Care to return to Dr. Chairez on dismissal. 06/24/17 More alert-opens eyes and will move upper ext spontaneously. Non verbal. Continue Rocephin for urinary coverage. Urine culture with early growth. Serum sodium with slight decrease to 172 and creatinine decrease to 2.5. Continue 1/2NS at 150 cc/hr - 500 cc bolus this am as BP running low. INR above 10 - Vit K 5mg SQ x1. Speech working with patient - NPO therapeutic as swallow delayed. Wound team for sacral decubitus ulcer - likely need wound vac. 06/25/17 Slight improvement in mentation. Continue Rocephin for urinary coverage. Urine culture growing gram positive cocci. Serum sodium with decrease to 163 and creatinine decrease to 2.0. Change IVF to D5W with 20KCl at 125cc/hr. IV boluses as needed to help blood pressure. INR decreased to 4.4 - continue to monitor. Speech working with patient - Starting to have oral intake. Wound team for sacral decubitus ulcer - wound vac placed yesterday. 06/26/17 Sitting in bed. Eyes open, will move arms spontaneously. Nonverbal. Oral drive diminished-not able to take po even with assistance. BP variable-did receive bolus overnight due to low pressure. Maintaining saturations, but lungs sounding more course. Check portable CXR. Sodium with decrease to 159. Creatinine 1.5. Continue with D5W with 20KCl at 125cc/hr. INR decreased to 1.97. Could restart Coumadin per protocol as INR decreased. Will change to Ampicillin secondary to Enterococcus faecalis in urine. Speech working with patient - Starting to have oral intake. Continue wound vac for decubitus ulcer. 06/27/17 Little change. Oral intake with slight improvement. Nursing not reporting pain/ agitation. Continue Ampicillin for urinary coverage of Enterococcus faecalis. Coumadin restarted. Will give Lovenox 40mg SQ x1. Potassium with decrease to 2.9. Creatinine decrease to 1.2. Will give IV potassium boluses and then change IVF to D5W with 40KCl at 125cc /hr. Continue wound vac for decubitus ulcer. Oral intake as patient able. Blood pressure still low, but not seeing continued evidence for sepsis - can transfer to medical floor for continued care.
[2017-06-27] MEDS: LIDOCAINE 1% INJ 10 MG, POTASSIUM CHLORIDE INJ 10 MEQ in NS 100 ML IV SCH ×4 (14:53→18:58)
[2017-06-27] MEDS: POTASSIUM CHLORIDE INJ 40 MEQ in D5W 1,000 ML IV SCH (18:35)
[2017-06-27] MEDS ORDERED: HYDROCODONE/APAP 7.5 MG/325 MG TABLET PO PRN (19:52)
[2017-06-28] MEDS: AMPICILLIN 1 GM in NS 100 ML IV SCH ×4 (00:26→22:26)
[2017-06-28] MEDS: LR 500 ML IV SCH (00:42)
[2017-06-28] MEDS: POTASSIUM CHLORIDE INJ 20 MEQ in D5W 1,000 ML IV SCH ×2 (00:42→22:25)
[2017-06-28] MEDS: INSULIN ASPART 100unit/ml INJECTION SQ PRN ×3 (05:50→14:37)
[2017-06-28] MEDS: POTASSIUM CHLORIDE INJ 40 MEQ in D5W 1,000 ML IV SCH ×2 (05:54→16:00)
--- NOTE | 2017-06-28 08:58 | Pharmacy Consult ---
Pharmacy Consult-Warfarin - Laboratory Information 06/24/17 06/25/17 06/26/17 05:16 05:14 02:06 INR > 10.00 H* 4.14 H 1.97 H 06/27/17 06/28/17 04:43 06:41 INR 1.52 H 1.63 H - Consult Information We will give warfarin 2mg p.o. today at noon. Thanks
--- NOTE | 2017-06-28 11:11 | Wound Care Progress Note ---
Wound Center Progress Note: Pt seen for wound follow up and wound vac dressing change. Seen with aDna MARTIN. Pt lying in bed, FLACC-0, FLACC-2 with dressing change. Coccyx: Wound is measuring smaller, but has greater tunneling depth. 2.5 (L) x 2.5 (W) x 2.7 (D) . Undermining from 9-3 o'clock measuring 6 cm at the deepest margin. Wound bed has 50% red granulation, 50% slough, no active drainage during dressing change. Periwound: blanchable erythema. Vac canister had 100 mL serosanguineous drainage. Vac dressing changed, black foam collapsed without leaks, wound bridged to L flank. Dressings to R lateral malleolus/ L medial lower leg/ Bilateral medial knees clean, dry, and intact. Continue to offload with regular repositioning, float heels, place pillow between knees, and wear foam boots to bilateral feet.
[2017-06-28] MEDS ORDERED: WARFARIN 2 MG TABLET PO SCH (12:00)
--- NOTE | 2017-06-28 13:42 | Progress Note ---
- Date 06/28/17 Subjective: Fatimah is seen today in follow up while sleeping in bed. Eyes will open however she will not respond verbally. She is breathing on room air and does not appear to be in any distress. Wound vac intact. Objective Vital signs: Temperature 95.8 F L 06/28/17 13:02 Pulse Rate 90 06/28/17 13:02 Respiratory Rate 20 06/28/17 13:02 Blood Pressure 147/92 H 06/28/17 13:02 Pulse Oximetry 96 06/28/17 13:02 Height/Weight/BMI: Height 1.63 m Weight 68.4 kg Body Mass Index 19.4 - Constitutional Present: no acute distress, well nourished, well developed - Routine HEENT Exam Eye: Present: EOMI ENT: Present: mucous membranes moist, dentition normal - Routine Respiratory Exam Present: diminished air movement. Absent: wheezes - Routine Cardiovascular Exam Present: RRR, S1, S2. Absent: murmur - Routine Abdominal Exam Present: soft, normoactive bowel sounds, non distended. Absent: tenderness - Routine Extremities Exam Present: normal capillary refill - Routine Skin Exam Present: intact, dry, warm - Routine Neurological Exam Present: altered mental status - Routine Lymphatic Exam Lymphatic: Absent: adenopathy - Routine Psychiatric Exam Present: unable to assess Results - Labs CBC & Chem 7: 06/28/17 06:41 06/28/17 06:41 Assessment and Plan (1) Severe sepsis Current visit: Yes Status: Acute (2) Hypernatremia Current visit: No Status: Acute (3) Type II diabetes mellitus Current visit: No Status: Chronic (4) HTN (hypertension) Current visit: No Status: Chronic (5) Hyperlipidemia Current visit: No Status: Chronic (6) Paroxysmal atrial fibrillation Current visit: No Status: Chronic (7) Anticoagulated on Coumadin Current visit: No Status: Chronic (8) Seizure disorder Current visit: No Status: Chronic (9) Thrombocytopenia Current visit: No Status: Chronic Assessment and Plan: Assessment Severe sepsis based on urinary source of infection, SIRS criteria of leukocytosis, tachycardia and temperature less than 96.8 and organ dysfunction evidenced by SBP< 90, elevated creatinine, thrombocytopenia, MAP< 65, INR >1.5 Severe hypernatremia (Na 177 on admission) UTI - Enterococcus faecalis growing JULIANA (creatinine 3.1 on admission) - resolved Elevated INR (INR >10 at presentation) Peripheral vascular disease Sacral pressure ulcer/leg ulcerations (POA) Dementia Diabetes, type II-diet controlled Seizure HTN HLD Paroxysmal A. fib History of PE following colon surgery (2007) Plan Continue Ampicillin (started 06/26) for urinary coverage of Enterococcus faecalis. Persistent Hypernatremia- Continue with IV fluids for hydration Wound vac and wound care as per recommendations Remains subtherapeutic- INR today 1.63 managed by pharmacy Recheck BMP and CBC tomorrow to follow blood counts, renal function and electrolytes Cecilio Potassium with increase to 4.4. Lungs sounding more congested. Will give 20mg IV Lasix x1 and change IVF to D5W with 20mEq KCl at 75cc/hr. DVT Prophylaxis: SCD's Resuscitation Status: Full Code - Time spent with patient Time with patient PN: 25 minutes - Physician Narrative Physician: Abhilash Hernandes MD Narrative: Date: 06/28/17 Time: 2124 Have independently interviewed and examined pt. Chart reviewed. Case discussed with my LINUX SYSTEM ADMINISTRATOR. Care plan developed with my supervision; agree with above. Resting in bed this evening. No verbal interaction. Oral intake with increase. Sodium decreased to 146, potassium increased to 4.4. Lungs: decreased, more congested. Upper airway and throat noises noted. CV: regular MSE: somnolent, nonverbal Plan: Will change IVF to D5W with 20mEq KCl and decrease rate to 75cc/hr. Lasix 20mg IV x1 due to increase pulmonary noises. Continue Ampicillin. Continue speech therapy. Continue with wound vac. Hospital Course Summary Disclaimer: The visit summary below is not to be considered part of the above Progress Note. Hospital Course: 06/23/17-hospital admission (CCU) Admit inpatient to CCU under the hospitalist service, Dr. Hernandes attending. Patient's stay is expected to exceed 2 overnights given her severe sepsis and comorbidities. IVF's bolused in ER per sepsis protocol and will be continued for hypernatremia , JULIANA, etc. Speech therapy consult to assess swallowing function and assist in diet recommendations. Ceftriaxone given in ER. Will continue daily dosing for UTI and infection to pressure ulcer. Consult wound team for treatment of pressure ulcers. Place Flores for accurate I&O measurements. Coumadin on hold given elevated INR. Vitamin K ordered. At this time, patient's daughter ([email or web address]) requests full code, but this may be negotiable at a future time. Care to return to Dr. Chairez on dismissal. 06/24/17 More alert-opens eyes and will move upper ext spontaneously. Non verbal. Continue Rocephin for urinary coverage. Urine culture with early growth. Serum sodium with slight decrease to 172 and creatinine decrease to 2.5. Continue 1/2NS at 150 cc/hr - 500 cc bolus this am as BP running low. INR above 10 - Vit K 5mg SQ x1. Speech working with patient - NPO therapeutic as swallow delayed. Wound team for sacral decubitus ulcer - likely need wound vac. 06/25/17 Slight improvement in mentation. Continue Rocephin for urinary coverage. Urine culture growing gram positive cocci. Serum sodium with decrease to 163 and creatinine decrease to 2.0. Change IVF to D5W with 20KCl at 125cc/hr. IV boluses as needed to help blood pressure. INR decreased to 4.4 - continue to monitor. Speech working with patient - Starting to have oral intake. Wound team for sacral decubitus ulcer - wound vac placed yesterday. 06/26/17 Sitting in bed. Eyes open, will move arms spontaneously. Nonverbal. Oral drive diminished-not able to take po even with assistance. BP variable-did receive bolus overnight due to low pressure. Maintaining saturations, but lungs sounding more course. Check portable CXR. Sodium with decrease to 159. Creatinine 1.5. Continue with D5W with 20KCl at 125cc/hr. INR decreased to 1.97. Could restart Coumadin per protocol as INR decreased. Will change to Ampicillin secondary to Enterococcus faecalis in urine. Speech working with patient - Starting to have oral intake. Continue wound vac for decubitus ulcer. 06/27/17 Little change. Oral intake with slight improvement. Nursing not reporting pain/ agitation. Continue Ampicillin for urinary coverage of Enterococcus faecalis. Coumadin restarted. Will give Lovenox 40mg SQ x1. Potassium with decrease to 2.9. Creatinine decrease to 1.2. Will give IV potassium boluses and then change IVF to D5W with 40KCl at 125cc /hr. Continue wound vac for decubitus ulcer. Oral intake as patient able. Blood pressure still low, but not seeing continued evidence for sepsis - can transfer to medical floor for continued care. 06/28 Continue Ampicillin (started 06/26) for urinary coverage of Enterococcus faecalis. Persistent Hypernatremia- Continue with IV fluids for hydration Wound vac and wound care as per recommendations Remains subtherapeutic- INR today 1.63 managed by pharmacy Recheck BMP and CBC tomorrow to follow blood counts, renal function and electrolytes
[2017-06-28 13:58] VITALS: BMI 25.9
[2017-06-28] MEDS ORDERED: FUROSEMIDE 20 MG/2 ML INJECTION IVP ONE (21:27)
[2017-06-29] MEDS: INSULIN ASPART 100unit/ml INJECTION SQ PRN ×4 (06:04→21:36)
[2017-06-29] MEDS: AMPICILLIN 1 GM in NS 100 ML IV SCH ×2 (06:33→15:11)
--- NOTE | 2017-06-29 09:38 | Pharmacy Consult ---
Pharmacy Consult-Warfarin - Laboratory Information 06/24/17 06/25/17 06/26/17 05:16 05:14 02:06 INR > 10.00 H* 4.14 H 1.97 H 06/27/17 06/28/17 06/29/17 04:43 06:41 04:52 INR 1.52 H 1.63 H 2.16 H - Consult Information COUMADIN CONSULT (Recurring): EM is a 71 yo female brought in by EMS due to increasing size, drainage, and foul smell to her sacral pressure wound. CC: pressure wound on coccyx, L foot turning blue. Patient has paroxysmal atrial fibrillation with ongoing anticoagulation therapy with Warfarin. The patient had an INR of 10.00 at admission. The patient was given phytonadione 10 mg by sq injection on 06/23, and phytonadione 5 mg bu sq injection on 06/24. Date INR Dose 06/26 1.97 2 mg 06/27 1.52 2 mg 06/28 1.63 2 mg 06/29 2.16 Will give 1 mg today. This patient is currently receiving Ampicillin 1 gm IV q8hrs since 06/27 which can cause a drug interaction with the warfarin to increase the INR. The patient's home dose of warfarin was alternating daily therapy with 2 mg one day and 1 mg the next day. The INR is now in the therapeutic range. The Pharmacy will continue to monitor the INR's and adjust the dosage of the Coumadin accordingly Thank you. Laila Infante, PaulD
[2017-06-29] MEDS ORDERED: WARFARIN 1 MG TABLET PO SCH (12:00)
--- NOTE | 2017-06-29 16:07 | XRay Report ---
Indication: hypoxia PROCEDURE: XR chest 1V: Encounter: Initial Comparison: June 26, 2017 Findings: Motion artifact limits the quality of the exam. Overall there is no definite change in appearance of the lungs. No gross pleural effusion or pneumothorax. No areas of new or worsening infiltrate appreciated. Cardiomediastinal contours are grossly stable. Pulmonary vascularity is now well evaluated due to the motion. Impression: Limited exam due to motion without obvious acute change. .
[2017-06-29] MEDS: POTASSIUM CHLORIDE INJ 20 MEQ in D5W 1,000 ML IV SCH (16:15)
[2017-06-29] MEDS ORDERED: FUROSEMIDE 40 MG/4 ML INJECTION IVP SCH (16:45)
[2017-06-29] MEDS ORDERED: ONDANSETRON 4 MG/2 ML INJECTION IVP PRN (17:39)
[2017-06-29] MEDS ORDERED: VANCOMYCIN - PHARMACY CONSULT MC ONE (18:12)
[2017-06-29] MEDS ORDERED: METOCLOPRAMIDE 10mg/2ml INJECTION IVP PRN (18:13)
[2017-06-29] MEDS: LEVOFLOXACIN PB 750 MG/150 ML BAG IV SCH (18:28)
--- NOTE | 2017-06-29 18:43 | Progress Note ---
- Date 06/29/17 Subjective: I was called by the nurse earlier this afternoon and notified that the patient had a heart rate in the 130s and was now requiring 2 L of oxygen. When I went in to evaluate the patient she was very somnolent and hard to arouse. No family was currently present. She has a Flores catheter in place. She had a small liquid bowel movement yesterday. Oral intake had been poor. Objective Vital signs: Temperature 97.3 F 06/29/17 15:05 Pulse Rate 131 H 06/29/17 15:05 Respiratory Rate 36 H 06/29/17 15:05 Blood Pressure 96/61 06/29/17 15:05 Pulse Oximetry 93 06/29/17 15:07 Height/Weight/BMI: Height 1.63 m Weight 66.7 kg Body Mass Index 25.9 Comments: Vitals earlier this afternoon temp 97.3 axillary, heart rate 131, respirations 36, blood pressure 96/61, O2 sat 85% on room air which improved to 93% on 2 L. GEN-very drowsy, hard to awaken even with sternal rub HEENT-sclera anicteric, pupils are equal, oropharynx is dry NECK-supple CV-cardiac rate with irregular rhythm CHEST-coarse upper airway rhonchi that can be heard even without a stethoscope ABD-soft, hypoactive bowel sounds, nontender -Flores in place with cloudy urine EXT-SCDs are on NEURO-minimally responsive SKIN-warm and dry, wound VAC on decubitus ulcer Results - Labs CBC & Chem 7: 06/29/17 04:52 06/29/17 16:20 Labs: Pro-calcitonin is elevated at 2.19, lactate is elevated at 3.6 Troponin is normal BNP is elevated at 1340. There are no previous for comparison. Magnesium is normal at 1.8. Phosphorus is low at 2.1 ABG shows pH of 7.44, PCO2 23, PO2 of 72 UA shows 2+ leukocyte esterase, negative nitrite, 10-20 white cells, 2+ bacteria , 5-10 squamous epithelial cells Microbiology Results: Microbiology 06/29/17 17:08 Urine, Cath Flores, Chronic Urine Culture - Preliminary Culture Initiated - Results Pending 06/29/17 16:20 Peripheral/Iv Start Blood Culture - Preliminary Culture Initiated - Results Pending 06/29/17 16:24 Peripheral/Iv Start Blood Culture - Preliminary Culture Initiated - Results Pending - ABG Interpretation ABG results: 06/29/17 17:08 ABG pH 7.440 ABG pCO2 23 L ABG pO2 72 L ABG HCO3 16 L ABG Total CO2 16.3 L ABG O2 Saturation 95.0 ABG Base Excess -6.8 L Assessment and Plan (1) Hypernatremia Current visit: No Status: Acute (2) Type II diabetes mellitus Current visit: No Status: Chronic (3) HTN (hypertension) Current visit: No Status: Chronic (4) Hyperlipidemia Current visit: No Status: Chronic (5) Paroxysmal atrial fibrillation Current visit: No Status: Chronic (6) Anticoagulated on Coumadin Current visit: No Status: Chronic (7) Seizure disorder Current visit: No Status: Chronic (8) Thrombocytopenia Current visit: No Status: Chronic (9) Severe sepsis Current visit: Yes Status: Acute Assessment and Plan: Assessment Severe sepsis based on urinary source of infection, SIRS criteria of leukocytosis, tachycardia and temperature less than 96.8 and organ dysfunction evidenced by SBP< 90, elevated creatinine, thrombocytopenia, MAP< 65, INR >1.5 New-onset severe sepsis 06/29/2017 based on lactate 3.6, tachycardia, hypoxia, elevated pro-calcitonin, borderline hypotensive Severe hypernatremia (Na 177 on admission)-resolved Acute hypoxic respiratory failure -chest x-ray pending Emesis 06/29/2017 -rule out aspiration UTI - Enterococcus faecalis growing UJLIANA (creatinine 3.1 on admission) - resolved Elevated INR (INR >10 at presentation)-currently INR is therapeutic Peripheral vascular disease Sacral pressure ulcer/leg ulcerations (POA) -wound VAC in place Dementia Diabetes, type II-diet controlled Seizure HTN HLD Paroxysmal A. fib History of PE following colon surgery (2007) Plan I had a long talk with the patient's family including her daughter who is DPOA. I initially called on the phone and talked with her at length. I then spoke with her when she arrived to see her mom and then I spoke with her again after lab work revealed severe sepsis. I discussed with her her mom's worsening status with hypoxia, severe sepsis, and borderline hypotension. We currently have no ICU beds at [facility]. We discussed possible treatment including supple transfer to [facility] for ICU care if beds available versus keeping her in her current room on the medical floor and providing as aggressive of care as possible with limitations of being on the medical floor. After questions and concerns were answered, family did elect to keep the patient here at [facility] on the medical floor with the understanding that she is quite ill and her condition could worsen overnight. Roopa/TRINIDAD also decided for DO NOT RESUSCITATE. If over the next few days in ICU bed is available and it is thought the patient would benefit from ICU care they would like to consider transfer to ICU here at [facility]. If her condition worsens and she does not appear to be improving, at that time they might consider comfort care measures. Regarding severe sepsis will discontinue ampicillin which she was on for UTI with enterococcus and start Levaquin, vancomycin, and cefepime. Urine culture is pending. Chest x-ray is pending. Blood cultures are pending Fluid status is difficult to determine. I was concerned about pulmonary edema earlier today. Weight is up about 3-1/2 kg since admission. INR was +8.4 L. Earlier today with hypoxia and coarse wet breath sounds, Lasix 1 was given. Will await chest x-ray and may need to consider fluid bolus given her sepsis Consider adding bicarbonate to IV fluids for metabolic acidosis seen on basic metabolic profile. Continue wound VAC. Check CBC with differential, and renal panel tomorrow. Regarding nausea and vomiting, KUB was ordered. Reglan and Zofran were ordered. We'll change to DO NOT RESUSCITATE status per Roopa PHILLIP Greater than 70 minutes of critical care time was spent seeing and evaluating the patient and determining care plan. The patient is critically ill. DVT Prophylaxis: Coumadin Resuscitation Status: Do Not Resuscitate - Physician Narrative Narrative: Date: 06/29/17 Time: 1825 Hospital Course Summary Disclaimer: The visit summary below is not to be considered part of the above Progress Note. Hospital Course: 06/23/17-hospital admission (CCU) Admit inpatient to CCU under the hospitalist service, Dr. Hernandes attending. Patient's stay is expected to exceed 2 overnights given her severe sepsis and comorbidities. IVF's bolused in ER per sepsis protocol and will be continued for hypernatremia , JULIANA, etc. Speech therapy consult to assess swallowing function and assist in diet recommendations. Ceftriaxone given in ER. Will continue daily dosing for UTI and infection to pressure ulcer. Consult wound team for treatment of pressure ulcers. Place Flores for accurate I&O measurements. Coumadin on hold given elevated INR. Vitamin K ordered. At this time, patient's daughter ([email or web address]) requests full code, but this may be negotiable at a future time. Care to return to Dr. Chairez on dismissal. 06/24/17 More alert-opens eyes and will move upper ext spontaneously. Non verbal. Continue Rocephin for urinary coverage. Urine culture with early growth. Serum sodium with slight decrease to 172 and creatinine decrease to 2.5. Continue 1/2NS at 150 cc/hr - 500 cc bolus this am as BP running low. INR above 10 - Vit K 5mg SQ x1. Speech working with patient - NPO therapeutic as swallow delayed. Wound team for sacral decubitus ulcer - likely need wound vac. 06/25/17 Slight improvement in mentation. Continue Rocephin for urinary coverage. Urine culture growing gram positive cocci. Serum sodium with decrease to 163 and creatinine decrease to 2.0. Change IVF to D5W with 20KCl at 125cc/hr. IV boluses as needed to help blood pressure. INR decreased to 4.4 - continue to monitor. Speech working with patient - Starting to have oral intake. Wound team for sacral decubitus ulcer - wound vac placed yesterday. 06/26/17 Sitting in bed. Eyes open, will move arms spontaneously. Nonverbal. Oral drive diminished-not able to take po even with assistance. BP variable-did receive bolus overnight due to low pressure. Maintaining saturations, but lungs sounding more course. Check portable CXR. Sodium with decrease to 159. Creatinine 1.5. Continue with D5W with 20KCl at 125cc/hr. INR decreased to 1.97. Could restart Coumadin per protocol as INR decreased. Will change to Ampicillin secondary to Enterococcus faecalis in urine. Speech working with patient - Starting to have oral intake. Continue wound vac for decubitus ulcer. 06/27/17 Little change. Oral intake with slight improvement. Nursing not reporting pain/ agitation. Continue Ampicillin for urinary coverage of Enterococcus faecalis. Coumadin restarted. Will give Lovenox 40mg SQ x1. Potassium with decrease to 2.9. Creatinine decrease to 1.2. Will give IV potassium boluses and then change IVF to D5W with 40KCl at 125cc /hr. Continue wound vac for decubitus ulcer. Oral intake as patient able. Blood pressure still low, but not seeing continued evidence for sepsis - can transfer to medical floor for continued care. 06/28 Continue Ampicillin (started 06/26) for urinary coverage of Enterococcus faecalis. Persistent Hypernatremia- Continue with IV fluids for hydration Wound vac and wound care as per recommendations Remains subtherapeutic- INR today 1.63 managed by pharmacy Recheck BMP and CBC tomorrow to follow blood counts, renal function and electrolytes
[2017-06-29] MEDS: PANTOPRAZOLE 40 MG INJECTION IVP SCH (22:15)
[2017-06-29] MEDS: CEFEPIME 1 GM in NS 100 ML IV SCH (22:25)
[2017-06-29] MEDS ORDERED: ALBUTEROL/IPRATROPIUM 2.5mg-0.5mg/3ml NEB AEROSOL PRN (22:45)
[2017-06-30] MEDS: CEFEPIME 1 GM in NS 100 ML IV SCH ×4 (02:49→21:01)
[2017-06-30] MEDS: SODIUM BICARBONATE 100 MEQ in D5W 1,000 ML IV SCH (04:46)
--- NOTE | 2017-06-30 08:04 | XRay Report ---
Indication: hypoxia, please repeat. Unable to see pulm vascularity PROCEDURE: XR chest 1V: Encounter: Initial Comparison: June 29, 2017 at 1605 and June 26, 2017 Findings: Worsening airspace consolidation in the lower lobes and in the right upper lobe. No pneumothorax. Small effusions. Heart size and mediastinal contours are stable. Pulmonary vascularity appears normal. Impression: Worsening infiltrates. .
--- NOTE | 2017-06-30 08:09 | XRay Report ---
Indication: emesis PROCEDURE: XR abdomen 1V: Encounter: Initial Comparison: None Findings: The visualized portions of the abdomen show essentially no bowel gas. Overlying monitoring leads. Multiple left abdominal and pelvic calcifications could represent renal and bladder stones and/or phleboliths or fibroids. Degenerative change in the spine and hips. Impression: Essentially no visible bowel gas probably representing fluid-filled loops of bowel. Possible left nephrolithiasis. There is a preliminary report by virtual [facility]. .
[2017-06-30] MEDS: PANTOPRAZOLE 40 MG INJECTION IVP SCH (08:18)
--- NOTE | 2017-06-30 08:18 | XRay Report ---
Indication: hypoxia PROCEDURE: XR chest 1V: Encounter: Initial Comparison: June 29, 2017 Findings: Improving aeration of the lower lobes. Patchy persistent right upper lobe airspace disease projecting between the first and second anterior ribs. Small right pleural effusion. No pneumothorax. Heart size and mediastinal contours are stable. Pulmonary vascular congestion has decreased. Impression: Decreasing edema and improving aeration of the lung bases. .
--- NOTE | 2017-06-30 09:18 | Pharmacy Consult ---
Pharmacy Consult-Warfarin - Laboratory Information 06/24/17 06/25/17 06/26/17 05:16 05:14 02:06 INR > 10.00 H* 4.14 H 1.97 H 06/27/17 06/28/17 06/29/17 04:43 06:41 04:52 INR 1.52 H 1.63 H 2.16 H 06/30/17 04:42 INR 2.73 H - Consult Information COUMADIN CONSULT (Recurring): EM is a 71 yo female brought in by EMS due to increasing size, drainage, and foul smell to her sacral pressure wound. CC: pressure wound on coccyx, L foot turning blue. Patient has paroxysmal atrial fibrillation with ongoing anticoagulation therapy with Warfarin. The patient had an INR of 10.00 at admission. The patient was given phytonadione 10 mg by sq injection on 06/23, and phytonadione 5 mg bu sq injection on 06/24. Date INR Dose 06/26 1.97 2 mg 06/27 1.52 2 mg 06/28 1.63 2 mg 06/29 2.16 1 mg 06/30 2.73 No dose today I am not ordering NO Warfarin today as the INR jumped significantly from 2.16 to 2.73 with a 1 mg dose yesterday. The jump is probably due to starting 3 antibiotics last evening. The pharmacy will continue monitoring INR's and adjust the warfarin accordingly. Thank you for the Warfarin Dosing Protocol, Marcial Pham, Pharmacist.
--- NOTE | 2017-06-30 09:31 | Progress Note ---
- Date 06/30/17 Subjective: Patient was seen this morning in her room. Her eyes are open and she follows me around the room. She does not attempt to speak. She has coarse/wet breath sounds audible without a stethoscope. She has had good urine output overnight. Nurse has been able to wean her down on her oxygen this morning. She has not had any further vomiting. She has not eaten yet this morning, but the [employer] is here to feed her. Objective Vital signs: Temperature 98.5 F 06/30/17 09:19 Pulse Rate 109 H 06/30/17 09:19 Respiratory Rate 26 H 06/30/17 09:19 Blood Pressure 100/57 06/30/17 09:19 Pulse Oximetry 94 06/30/17 09:19 Height/Weight/BMI: Height 1.63 m Weight 66.4 kg Body Mass Index 25.9 Comments: I&O yesterday 1578/1300 Urine output yesterday 900 ML's. Urine output overnight since midnight 700 ML's. Weight is 66.4 kg down from 66.7 kg yesterday GEN-awake, nonverbal, coarse breath sounds HEENT-sclera anicteric, oropharynx is dry, she is mouth breathing CV-borderline tachycardic rate with irregular rhythm CHEST-coarse upper airway rhonchi ABD-off, nontender with positive bowel sounds -Flores in place with light colored urine EXT-no edema, heel protectors are on NEURO-nonverbal, eyes open, she follows me around the room, she appears more alert than yesterday evening SKIN-warm and dry, bruises on her upper extremities Results - Labs CBC & Chem 7: 06/30/17 04:42 06/30/17 04:42 Labs: Calcium 8.1, phosphorus 2.5, albumin 2.3 Lactate recheck last night was 3.4 down from 3.6 Viral respiratory panel was negative Microbiology Results: Microbiology 06/29/17 17:08 Urine, Cath Flores, Lian Urine Culture - Preliminary Culture Initiated - Results Pending 06/29/17 16:20 Peripheral/Iv Start Blood Culture - Preliminary Culture Initiated - Results Pending 06/29/17 16:24 Peripheral/Iv Start Blood Culture - Preliminary Culture Initiated - Results Pending - ABG Interpretation ABG results: 06/29/17 17:08 ABG pH 7.440 ABG pCO2 23 L ABG pO2 72 L ABG HCO3 16 L ABG Total CO2 16.3 L ABG O2 Saturation 95.0 ABG Base Excess -6.8 L - Impressions Date of Exam: 06/30/17 Ordering Provider: Jovana Evans MD Type of Exam(s): XR chest 1V Reason for Exam(s): hypoxia Indication: hypoxia PROCEDURE: XR chest 1V: Encounter: Initial Comparison: June 29, 2017 Findings: Improving aeration of the lower lobes. Patchy persistent right upper lobe airspace disease projecting between the first and second anterior ribs. Small right pleural effusion. No pneumothorax. Heart size and mediastinal contours are stable. Pulmonary vascular congestion has decreased. Impression: Decreasing edema and improving aeration of the lung bases. . Assessment and Plan (1) Hypernatremia Current visit: No Status: Acute (2) Type II diabetes mellitus Current visit: No Status: Chronic (3) HTN (hypertension) Current visit: No Status: Chronic (4) Hyperlipidemia Current visit: No Status: Chronic (5) Paroxysmal atrial fibrillation Current visit: No Status: Chronic (6) Anticoagulated on Coumadin Current visit: No Status: Chronic (7) Seizure disorder Current visit: No Status: Chronic (8) Thrombocytopenia Current visit: No Status: Chronic (9) Severe sepsis Current visit: Yes Status: Acute Assessment and Plan: Assessment Severe sepsis based on urinary source of infection, SIRS criteria of leukocytosis, tachycardia and temperature less than 96.8 and organ dysfunction evidenced by SBP< 90, elevated creatinine, thrombocytopenia, MAP< 65, INR >1.5 New-onset severe sepsis 06/29/2017 based on lactate 3.6, tachycardia, hypoxia, elevated pro-calcitonin, borderline hypotensive Possible pneumonia on chest x-ray Pulmonary edema -improved Severe hypernatremia (Na 177 on admission)-resolved Acute hypoxic respiratory failure -pulmonary edema and infiltrates on chest x- ray-hypoxia better 06/30/2017 Emesis 06/29/2017 -rule out aspiration Hematemesis with positive gastric occult UTI - Enterococcus faecalis JULIANA (creatinine 3.1 on admission) - resolved Elevated INR (INR >10 at presentation)-currently INR is therapeutic Peripheral vascular disease Sacral pressure ulcer/leg ulcerations (POA) -wound VAC in place Dementia Diabetes, type II-diet controlled Seizure HTN HLD Paroxysmal A. fib History of PE following colon surgery (2007) Possible left nephrolithiasis. KUB showed no visible bowel gas probably representing fluid-filled loops of bowel. Plan Continue vancomycin, Levaquin and cefepime for severe sepsis with possible pneumonia. Repeat lactate this morning. Try to maintain map of 65 or over. Urine output has been good overnight. Patient seems more alert today. Continue IV fluids with bicarbonate for metabolic acidosis. Ideally, we would give more fluids with elevated lactate and sepsis but she also had pulmonary edema on chest x- ray. We'll try to ideally manage fluid status. Fortunately, urine output is good. Recheck CBC and basic metabolic profile tomorrow. Coumadin is on hold for now. INR is therapeutic. Protonix was started yesterday for possible hematemesis. Gastric occult was positive. Hemoglobin is stable at 10.6. It has ranged from 10-11 the past 5 days. Regarding fluid-filled loops of bowel-we will start Reglan scheduled and give Dulcolax suppositories. Patient may need PICC line. Greater than 45 minutes of time spent seeing and evaluating the patient in determining care plan this morning. DVT Prophylaxis: Coumadin GI Prophylaxis: Protonix Resuscitation Status: Do Not Resuscitate - Physician Narrative Physician: Jovana Evans MD Narrative: Date: 06/30/17 Time: 0924 Hospital Course Summary Disclaimer: The visit summary below is not to be considered part of the above Progress Note. Hospital Course: 06/23/17-hospital admission (CCU) Admit inpatient to CCU under the hospitalist service, Dr. Hernandes attending. Patient's stay is expected to exceed 2 overnights given her severe sepsis and comorbidities. IVF's bolused in ER per sepsis protocol and will be continued for hypernatremia , JULIANA, etc. Speech therapy consult to assess swallowing function and assist in diet recommendations. Ceftriaxone given in ER. Will continue daily dosing for UTI and infection to pressure ulcer. Consult wound team for treatment of pressure ulcers. Place Flores for accurate I&O measurements. Coumadin on hold given elevated INR. Vitamin K ordered. At this time, patient's daughter (DPOA-H) requests full code, but this may be negotiable at a future time. Care to return to Dr. Chairez on dismissal. 06/24/17 More alert-opens eyes and will move upper ext spontaneously. Non verbal. Continue Rocephin for urinary coverage. Urine culture with early growth. Serum sodium with slight decrease to 172 and creatinine decrease to 2.5. Continue 1/2NS at 150 cc/hr - 500 cc bolus this am as BP running low. INR above 10 - Vit K 5mg SQ x1. Speech working with patient - NPO therapeutic as swallow delayed. Wound team for sacral decubitus ulcer - likely need wound vac. 06/25/17 Slight improvement in mentation. Continue Rocephin for urinary coverage. Urine culture growing gram positive cocci. Serum sodium with decrease to 163 and creatinine decrease to 2.0. Change IVF to D5W with 20KCl at 125cc/hr. IV boluses as needed to help blood pressure. INR decreased to 4.4 - continue to monitor. Speech working with patient - Starting to have oral intake. Wound team for sacral decubitus ulcer - wound vac placed yesterday. 06/26/17 Sitting in bed. Eyes open, will move arms spontaneously. Nonverbal. Oral drive diminished-not able to take po even with assistance. BP variable-did receive bolus overnight due to low pressure. Maintaining saturations, but lungs sounding more course. Check portable CXR. Sodium with decrease to 159. Creatinine 1.5. Continue with D5W with 20KCl at 125cc/hr. INR decreased to 1.97. Could restart Coumadin per protocol as INR decreased. Will change to Ampicillin secondary to Enterococcus faecalis in urine. Speech working with patient - Starting to have oral intake. Continue wound vac for decubitus ulcer. 06/27/17 Little change. Oral intake with slight improvement. Nursing not reporting pain/ agitation. Continue Ampicillin for urinary coverage of Enterococcus faecalis. Coumadin restarted. Will give Lovenox 40mg SQ x1. Potassium with decrease to 2.9. Creatinine decrease to 1.2. Will give IV potassium boluses and then change IVF to D5W with 40KCl at 125cc /hr. Continue wound vac for decubitus ulcer. Oral intake as patient able. Blood pressure still low, but not seeing continued evidence for sepsis - can transfer to medical floor for continued care. 06/28 Continue Ampicillin (started 06/26) for urinary coverage of Enterococcus faecalis. Persistent Hypernatremia- Continue with IV fluids for hydration Wound vac and wound care as per recommendations Remains subtherapeutic- INR today 1.63 managed by pharmacy Recheck BMP and CBC tomorrow to follow blood counts, renal function and electrolytes 06/29/2017 I had a long talk with the patient's family including her daughter who is DPOA. I initially called on the phone and talked with her at length. I then spoke with her when she arrived to see her mom and then I spoke with her again after lab work revealed severe sepsis. I discussed with her her mom's worsening status with hypoxia, severe sepsis, and borderline hypotension. We currently have no ICU beds at [facility]. We discussed possible treatment including supple transfer to [facility] for ICU care if beds available versus keeping her in her current room on the medical floor and providing as aggressive of care as possible with limitations of being on the medical floor. After questions and concerns were answered, family did elect to keep the patient here at [facility] on the medical floor with the understanding that she is quite ill and her condition could worsen overnight. Roopa/TRINIDAD also decided for DO NOT RESUSCITATE. If over the next few days in ICU bed is available and it is thought the patient would benefit from ICU care they would like to consider transfer to ICU here at [facility]. If her condition worsens and she does not appear to be improving, at that time they might consider comfort care measures. Regarding severe sepsis will discontinue ampicillin which she was on for UTI with enterococcus and start Levaquin, vancomycin, and cefepime. Urine culture is pending. Chest x-ray is pending. Blood cultures are pending Fluid status is difficult to determine. I was concerned about pulmonary edema earlier today. Weight is up about 3-1/2 kg since admission. INR was +8.4 L. Earlier today with hypoxia and coarse wet breath sounds, Lasix 1 was given. Will await chest x-ray and may need to consider fluid bolus given her sepsis Consider adding bicarbonate to IV fluids for metabolic acidosis seen on basic metabolic profile. Continue wound VAC. Check CBC with differential, and renal panel tomorrow. Regarding nausea and vomiting, KUB was ordered. Reglan and Zofran were ordered. We'll change to DO NOT RESUSCITATE status per Roopa PHILLIP Greater than 70 minutes of critical care time was spent seeing and evaluating the patient and determining care plan. The patient is critically ill.
[2017-06-30] MEDS ORDERED: BISACODYL 10 MG SUPPOSITORY RECTALLY ONE (10:20)
[2017-06-30] MEDS: METOCLOPRAMIDE 10mg/2ml INJECTION IVP SCH ×3 (10:48→23:44)
--- NOTE | 2017-06-30 15:07 | Pharmacy Consult-Antibiotics ---
Pharmacy Consult-Vancomycin - Laboratory Information WBC 10.6 T/MM3 (4.5-11.0) 06/30/17 04:42 BUN 21.0 MG/DL (7-17) H 06/30/17 04:42 Creatinine 1.3 MG/DL (0.7-1.2) H D 06/30/17 04:42 Procalcitonin 2.19 NG/ML H* 06/29/17 16:20 - Consult Information VANCOMYCIN CONSULT: Dx: Severe Sepsis Current Renal Fx: S Cr = 1.2 mg/dl. Est. Cr Cl ~ 39 mL/min WBC's = 9.8 T/mm3 Lactate = 3.6 (elevated) Procalcitonin = 2.19 (elevated) Will give a Vancomycin bolus of 2,000 mg then Vancomycin 1,500 mg IV q24hrs. The estimated trough will be around 16.15 mcg/mL. The pharmacy will continue to monitor and adjust regimen to maintain therapeutic levels. Thank you for the Vancomycin dosing Protocol, Marcial Pham, Pharmacist.
[2017-06-30] MEDS: LEVOFLOXACIN PB 750 MG/150 ML BAG IV SCH (18:47)
[2017-07-01] MEDS: CEFEPIME 1 GM in NS 100 ML IV SCH ×4 (02:18→21:52)
[2017-07-01] MEDS: METOCLOPRAMIDE 10mg/2ml INJECTION IVP SCH ×4 (06:52→23:04)
[2017-07-01] MEDS: SODIUM BICARBONATE 100 MEQ in D5W 1,000 ML IV SCH ×2 (06:53→09:28)
[2017-07-01] MEDS ORDERED: MAGNESIUM SULFATE 1gm PREMIX 1 GM/100 ML BAG IV ONE (07:15)
--- NOTE | 2017-07-01 07:33 | Pharmacy Consult ---
Pharmacy Consult-Warfarin - Laboratory Information 06/24/17 06/25/17 06/26/17 05:16 05:14 02:06 INR > 10.00 H* 4.14 H 1.97 H 06/27/17 06/28/17 06/29/17 04:43 06:41 04:52 INR 1.52 H 1.63 H 2.16 H 06/30/17 07/01/17 04:42 03:59 INR 2.73 H 2.33 H - Consult Information INR is at 2.33 so we will give 0.5mg of warfarin p.o. today at noon. Anticipate dose to be around 0.5 to 1mg daily for home. There are several antibiotics that may increase the INR and is likely to be what we are seeing. We will continue to monitor and adjust. Thanks
[2017-07-01] MEDS ORDERED: POTASSIUM CHLORIDE 20 MEQ/15 ML ORAL LIQUID PO SCH (08:00)
[2017-07-01] MEDS: LIDOCAINE 1% INJ 10 MG, POTASSIUM CHLORIDE INJ 10 MEQ in NS 100 ML IV SCH ×5 (08:18→18:14)
[2017-07-01] MEDS: SALINE FLUSH 10ml SYRINGE IVF PRN ×7 (08:19→21:52)
[2017-07-01] MEDS: PANTOPRAZOLE 40 MG INJECTION IVP SCH (09:39)
[2017-07-01] MEDS ORDERED: WARFARIN 1 MG TABLET PO SCH (12:00)
[2017-07-01] MEDS ORDERED: PPN - PHARMACY CONSULT MC ONE (13:43)
--- NOTE | 2017-07-01 14:12 | Pharmacy Consult-TPN/PPN ---
Pharmacy Consult-TPN/PPN - Laboratory Information Chemistry Turbidity < 20 (0-20) 07/01/17 03:59 Sodium 147 MEQ/L (134-144) H 07/01/17 03:59 Potassium 2.7 MEQ/L (3.6-5) L* D 07/01/17 03:59 Chloride 121 MEQ/L (98-107) H 07/01/17 03:59 Carbon Dioxide 18 MEQ/L (22-30) L 07/01/17 03:59 Anion Gap 8 MEQ/L (5-15) 07/01/17 03:59 BUN 18.0 MG/DL (7-17) H 07/01/17 03:59 Creatinine 1.2 MG/DL (0.7-1.2) 07/01/17 03:59 GFR Calculation 44 07/01/17 03:59 BUN/Creatinine Ratio 15 RATIO (6-26) 07/01/17 03:59 Glucose 81 MG/DL (65-110) 07/01/17 03:59 Glucometer 79 mg/dL (65-110) 07/01/17 11:06 Calculated Osmolality 283 MOSM/KG (261-280) H 07/01/17 03:59 Calcium 7.5 MG/DL (8.4-10.2) L 07/01/17 03:59 Phosphorus 2.7 MG/DL (2.5-4.5) 07/01/17 03:59 Magnesium 1.6 MG/DL (1.6-2.3) 07/01/17 03:59 Total Bilirubin 0.50 MG/DL (0.20-1.30) 06/29/17 16:20 Icterus Index < 2 (0-7) 07/01/17 03:59 AST 23 U/L (14-36) 06/29/17 16:20 ALT 32 U/L (9-52) 06/29/17 16:20 Alkaline Phosphatase 111 U/L (38-126) 06/29/17 16:20 Troponin I 0.015 ng/ml (0-0.12) 06/29/17 16:20 B-Natriuretic Peptide 1340 pg/mL (0-175) H 06/29/17 16:20 Total Protein 6.6 G/DL (6.3-8.2) 06/29/17 16:20 Albumin 2.0 G/DL (3.5-5.0) L 07/01/17 03:59 Globulin 3.9 G/DL (2.4-3.6) H 06/29/17 16:20 Albumin/Globulin Ratio 0.7 RATIO (1.1-2.2) L 06/29/17 16:20 Plasma Lactate 2.9 MMOL/L (0.6-2.2) H 06/30/17 14:48 Procalcitonin 2.19 NG/ML H* 06/29/17 16:20 Specimen Hemolysis < 15 (0-25) 07/01/17 03:59 Intake and Output 06/30/17 07/01/17 07/02/17 06:59 06:59 06:59 Intake Total 1492.5 / 1492.5 2250.00 / 2250.00 551.25 / 551.25 Output Total 1100 / 1100 1235 / 1235 100 / 100 Balance 392.5 / 392.5 1015.00 / 1015.00 451.25 / 451.25 Weight 66.7 kg 66.4 kg 66.5 kg Intake: IV 1492.5 / 1492.5 2250.00 / 2250.00 551.25 / 551.25 Ampicillin 1 gm In Ns 100 ml @ 200 / 200 200 mls/hr IV Q8H [facility] Rx#: [id number] Cefepime 1 gm In Ns 100 ml @ 200 / 200 400 / 400 100 / 100 200 mls/hr IV Q6H [facility] Rx#: [id number] Levofloxacin Pb 750 mg In 150 150 / 150 150 / 150 ml @ 100 mls/hr IV Q24H [facility] Rx# :[id number] Lidocaine 1% Inj 10 mg 300 / 300 Potassium Chloride Inj 10 meq In Ns 100 ml @ 100 mls/hr IV . Q1H [facility]A Rx#:[id number] MAGNESIUM SULFATE 1gm PREMIX 1 100 / 100 gm In 100 ml @ 100 mls/hr IV O ONE Rx#:[id number] Potassium Chloride Inj 20 meq 442.5 / 442.5 In D5w 1,000 ml @ 75 mls/hr IV .[id number] [facility]A Rx#:[id number] Sodium Bicarbonate 100 meq In 1100.00 / 1100.00 51.25 / 51.25 D5w 1,000 ml @ 75 mls/hr IV . [id number] [facility]A Rx#:[id number] Vancomycin 1,500 mg In NS 500ml 500 / 500 500 ml @ 250 mls/hr IV Q24H [facility]A Rx#:[id number] Oral 0 / 0 Output: Stool 150 / 150 210 / 210 100 / 100 Urine Amount (Catheter) 950 / 950 1025 / 1025 Other: Urine Appearance Clear Clear Urine Color Yellow Straw Stool Characteristics Mucoid Stool Color Brown Green Brown Black Stool Consistency Liquid Liquid Liquid Size of Bowel Movement Smear Smear # Incontinent Bowel Movements 1 - Consult Information PPN consult noted by Dr Evans for Fatimah Jacques, who is 71 years old and weighs 66.5kg. She has a peripheral line. PPN with lipids to begin today at 80 mls/hr which will supply approximately 1400 total kcal/day. The custom TPN has no chloride, half the normal sodium and extra potassium. Will continue to monitor and adjust accordingly. Thank you.
[2017-07-01] MEDS: MAGNESIUM SULFATE IV SCH (15:54)
[2017-07-01] MEDS: POTASSIUM ACETATE IV SCH (15:54)
[2017-07-01] MEDS: [UNRECOGNIZED DRUG - OTHER] IV SCH (15:54)
[2017-07-01] MEDS: SODIUM ACETATE IV SCH (15:54)
[2017-07-01] MEDS ORDERED: MORPHINE SULFATE 2mg INJECTION IVP ONE (18:00)
[2017-07-01] MEDS: LEVOFLOXACIN PB 750 MG/150 ML BAG IV SCH (19:25)
--- NOTE | 2017-07-01 21:04 | Consultation ---
DATE OF CONSULTATION 07/01/2017 HISTORY OF PRESENT ILLNESS This patient is 71 years old. She was brought to [facility] Emergency Room by EMS on 06/23/2017 with a sacral pressure wound which was increasing in size and drainage. The drainage from the pressure wound had a foul smell. The patient had not been eating or drinking in the four days prior to this. The patient does have dementia and requires full care at home. The patient lives at home with a daughter and son-in-law who take care of her. The daughter feeds the patient and changes her Depends and repositions her. The daughter noted on 06/23/2017 that the patient was developing pressure ulcers at her lower extremities despite efforts to reposition the patient frequently. The patient had been receiving care by home health nurses to help care for the sacral pressure wound. The patient had also been going to [facility] and was currently waiting for a home wound VAC for the sacral pressure wound. The patient was thought at the time of evaluation on 06/23/2017 to have severe sepsis. The patient was admitted to the critical care unit at [facility] for treatment of severe sepsis on 2017. The patient was thought to have a urinary tract infection as well as some infection from the sacral pressure wound causing this severe sepsis. [facility] nurses were consulted at the time of admission to the hospital for treatment of the pressure ulcers. The patient has been having treatment of the stage IV sacral decubitus ulcer with a wound VAC by [facility] nurses since admission to the hospital on 06/23/2017. The patient has been receiving some Rocephin for treatment of the urinary tract infection. At a wound VAC dressing change on 07/01/2017, there was some foul-smelling drainage from the sacral wound which looked like stool. There was concern at this time that the patient might have an enterocutaneous fistula with stool draining out of the stage IV sacral pressure ulcer. Dr. Keen was consulted at this time for evaluation of the patient for possible enterocutaneous fistula at the sacral pressure wound. PAST MEDICAL HISTORY PREVIOUS OPERATIONS AND PROCEDURES 1. Total abdominal hysterectomy with bilateral salpingo-oophorectomy in 1995. 2. Total colonoscopy with polypectomy on 07/04/[address] Mcdaniel at [facility] at [place], [place]. 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 The patient had another fairly large polyp located 40 cm proximal to the anal verge which was removed in piecemeal fashion. 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 3. Subtotal colectomy with ileoproctostomy on 08/08/[address] Mcdaniel at [facility] at [place], [place]. This subtotal colectomy was performed for removal of the large tubulovillous adenoma at the cecum and proximal ascending colon and the site where the adenomatous colon polyp containing invasive adenocarcinoma 40 cm proximal to the anal verge had previously been removed. Discharge diagnoses were history of tubulovillous adenoma involving the cecum, history of adenomatous colon polyp with invasive adenocarcinoma 40 cm proximal to the anal verge, postoperative ileus and chronic renal insufficiency. 4. Extensive laparotomy with extensive adhesiolysis, resection of a phlegmonous mass with associated enterotomy/colotomy, two-layer closure of iatrogenic bladder injury/rent, creation of end ileostomy and insertion of a triple-lumen catheter under sonographic guidance on 09/27/[address] Mcdaniel at [facility] at [place], [place]. Postoperative diagnosis was phlegmonous mass within pelvis with associated enterotomy versus colotomy. 5. Exploratory laparotomy with drainage of intraabdominal abscess and removal of retained foreign body (lap sponge) on 10/07/[address] Mcdaniel at [facility] at [place], [place]. Postoperative diagnosis was intraabdominal abscess secondary to foreign body (retained lap sponge). Discharge diagnoses for the hospitalization in September 2007 were diffuse abdominal pain secondary to perforation of prior ileocolonic anastomosis, fecal peritonitis with associated sepsis, postoperative toxic metabolic encephalopathy, postoperative malnutrition , postoperative anemia and history of development of postoperative cardiac arrhythmias. 6. Esophagogastroduodenoscopy and proctoscopy on 02/28/[address] Keen at [facility] at [place], [place]. This was performed for evaluation of anemia. Findings were normal throughout the upper gastrointestinal tract at esophagogastroduodenoscopy. No abnormalities were found at the remaining segment of rectum at proctoscopy at this time. No source for blood loss which would lead to anemia was found at either esophagogastroduodenoscopy or proctoscopy. PHYSICAL EXAM VITAL SIGNS: Temperature is 97.3 degrees Fahrenheit axillary. Pulse is 95. Respiratory rate is 24. Blood pressure is 123/75. Oxygen saturation is 93% on room air. ABDOMEN: The patient does have an end ileostomy of the right lower quadrant of the abdomen. BUTTOCKS: The patient has a large deep stage IV pressure ulcer at the sacrum. This is a large deep open wound with tunneling beneath the skin margins. There is foul-smelling necrotic tissue at the margins of this wound. The coccyx is absent. The lower end of the sacrum is absent. The patient does have some mushy necrotic-appearing bone at the portion of the sacrum which remains as well as the lower lumbar spine. This bone at the lower lumbar spine and sacrum is exposed at the base the wound at the superior end of the wound. There is gross evidence of osteomyelitis throughout this lower lumbar spine and sacrum bone. The base of this large open wound at the sacrum inferior to the level of bone which remains appears to consist of soft tissue at the floor of the pelvis which would normally be located anterior to the base of the sacrum and coccyx if the patient had a coccyx which was still present. This tissue appears to be necrotic. Pressing on this tissue with the tip of an index finger reveals that there is a sensation that there is just a thin layer of tissue at the pelvic floor between the inside of the pelvis and the open wound at the sacrum. There is necrotic tissue at this area. This looks like necrotic tissue at the soft tissue at the floor of the pelvis. I do not see anything that looks like stool at the wound at this time. The patient does not have a colon. I do not see any drainage out through this open wound at the sacrum which looks like small bowel contents from an enterocutaneous fistula from the small bowel at the present time. There is extensive soft tissue which appears to be necrotic. There is bone which appears to be infected and necrotic. It looks like there is soft tissue which would be at the floor of the pelvis which appears necrotic. IMPRESSION 1. Stage IV sacral pressure wound with infected necrotic-appearing tissue. This includes what appears to be infected bone with osteomyelitis at the remaining sacrum and base of the spine. There appears to be necrotic tissue at the floor of the pelvis anterior to where the coccyx and inferior aspect of the sacrum would be located. I cannot find any coccyx or inferior aspect of sacral bone at the base of the wound at this time. 2. Dementia. 3. Malnutrition. 4. Status post subtotal colectomy with ileoproctostomy on 08/08/2007. 5. Status post takedown of ileoproctostomy anastomosis with creation of end ileostomy on 09/27/2007. 6. End ileostomy at right lower quadrant of abdomen. RECOMMENDATION Comfort care. PATIENT EDUCATION I did meet with the daughter of the patient who is durable power tax associate attorney for healthcare matters and I did inform her of my findings at examination of the patient at this time. I told the daughter that may best recommendation for the patient at this time would be comfort care. Questions were solicited from the daughter. All of her questions were answered. Alternatives to comfort care were described. I did tell the daughter that any attempt to debride all the necrotic tissue and bone at this area would be beyond the scope of what I would be able to perform at [facility]. EMERSON
--- NOTE | 2017-07-01 21:34 | Progress Note ---
- Date 07/01/17 Subjective: The patient was seen in her room this afternoon. She was still having some coarse upper airway rhonchi but it had improved. She was awake and alert and follows me around the room with her eyes. She is nonverbal and did not attempt answer any questions. Family was not initially present. Objective Vital signs: Temperature 97.3 F 07/01/17 14:32 Pulse Rate 86 07/01/17 18:01 Respiratory Rate 24 07/01/17 14:32 Blood Pressure 114/51 07/01/17 18:01 Pulse Oximetry 93 07/01/17 14:32 Height/Weight/BMI: Height 1.63 m Weight 66.5 kg Body Mass Index 25.9 Comments: Afebrile, heart rate 86, respirations 24, blood pressure 114/51, O2 sat 93% on room air GEN-alert, chronically ill-appearing, no acute distress HEENT-oropharynx is mildly dry but she is breathing through her mouth NECK-supple CV-regular rate and rhythm, no ectopy CHEST-mild coarse breath sounds ABD-soft, nontender with positive bowel sounds, she does have an ostomy good output -Flores with good urination EXT-no edema, he'll protectors are on NEURO-nonverbal, severe generalized weakness, moves arms spontaneously and purposefully SKIN-warm and dry, wound VAC is on. Results - Labs CBC & Chem 7: 07/01/17 15:08 07/01/17 15:08 Labs: Calcium 7.5, albumin 2.0 Potassium was 2.7 this morning and after potassium bolus of 40 mEq potassium was up to 3.1. Microbiology Results: Microbiology 06/29/17 16:24 Peripheral/Iv Start Blood Culture - Preliminary No Growth After 2 Days 06/29/17 16:20 Peripheral/Iv Start Blood Culture - Preliminary No Growth After 2 Days 06/29/17 17:08 Urine, Lian Christensen Urine Culture - Final Suy[place] species, not albicans Assessment and Plan (1) Hypernatremia Current visit: No Status: Acute (2) Type II diabetes mellitus Current visit: No Status: Chronic (3) HTN (hypertension) Current visit: No Status: Chronic (4) Hyperlipidemia Current visit: No Status: Chronic (5) Paroxysmal atrial fibrillation Current visit: No Status: Chronic (6) Anticoagulated on Coumadin Current visit: No Status: Chronic (7) Seizure disorder Current visit: No Status: Chronic (8) Thrombocytopenia Current visit: No Status: Chronic (9) Severe sepsis Current visit: Yes Status: Acute Assessment and Plan: Assessment Severe sepsis based on urinary source of infection, SIRS criteria of leukocytosis, tachycardia and temperature less than 96.8 and organ dysfunction evidenced by SBP< 90, elevated creatinine, thrombocytopenia, MAP< 65, INR >1.5 New-onset severe sepsis 06/29/2017 based on lactate 3.6, tachycardia, hypoxia, elevated pro-calcitonin, borderline hypotensive -improved Healthcare associated pneumonia-cefepime, Levaquin, and vancomycin were initiated on 06/29/2017 Pulmonary edema -improved Severe hypernatremia (Na 177 on admission)-resolved Acute hypoxic respiratory failure -pulmonary edema and infiltrates on chest x- ray-resolved Emesis 06/29/2017 -rule out aspiration Hematemesis with positive gastric occult -she had a drop in hemoglobin today of 8.4, repeat hemoglobin 8.7 UTI - Enterococcus faecalis -currently on vancomycin JULIANA (creatinine 3.1 on admission) - resolved Elevated INR (INR >10 at presentation)-currently INR is therapeutic Peripheral vascular disease Sacral pressure ulcer-wound VAC removed today due to possible fistula leg ulcerations (POA) Dementia Diabetes, type II-diet controlled Seizure HTN HLD Paroxysmal A. 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 KUB showed no visible bowel gas probably representing fluid-filled loops of bowel. Plan After my initial visit with the patient this afternoon, the nurse notified me that she was concerned because of foul drainage from the patient's wound VAC that smelled like feces. I then did ask the wound and skin nurse to reevaluate the wound. She will remove the wound VAC and stated she was concerned for a possible enterocutaneous fistula and recommended surgical consultation. I did call and asked Dr. Keen to evaluate the patient's wound. I did stay in the room with him when he evaluated the wound. Unfortunately, she has a stage IV sacral pressure ulcer with infected and necrotic appearing tissue. In looking into the wound, one could unfortunately see her sacrum and the base of her spine which appeared yellowish brown and per Dr. Keen was soft. He was concerned for severe osteomyelitis. He did not think surgical treatment would be beneficial. He did recommend comfort care to the patient's daughter Roopa, who his DPOA. I then spoke with Roopa afterwards and we discussed esters multiple medical issues that she is facing at this time. We discussed the severe wound with apparent infection of her lumbar spine, sacrum and coccyx. Roopa has decided to consult hospice in the morning and will likely decided for comfort care with hospice at home. She would like to continue PPN for tonight. I did inform her that hospice was unlikely to continue IV nutrition at home. We'll consult case management in the morning to discuss hospice consultation. Greater than 1 hour of critical care time spent today seeing and evaluating the patient, talking with family, and consulting with Dr. Keen. - Physician Narrative Narrative: Date: 07/01/17 Time: 2129 Hospital Course Summary Disclaimer: The visit summary below is not to be considered part of the above Progress Note. Hospital Course: 06/23/17-hospital admission (CCU) Admit inpatient to CCU under the hospitalist service, Dr. Hernandes attending. Patient's stay is expected to exceed 2 overnights given her severe sepsis and comorbidities. IVF's bolused in ER per sepsis protocol and will be continued for hypernatremia , JULIANA, etc. Speech therapy consult to assess swallowing function and assist in diet recommendations. Ceftriaxone given in ER. Will continue daily dosing for UTI and infection to pressure ulcer. Consult wound team for treatment of pressure ulcers. Place Flores for accurate I&O measurements. Coumadin on hold given elevated INR. Vitamin K ordered. At this time, patient's daughter (DPOA-H) requests full code, but this may be negotiable at a future time. Care to return to Dr. Chairez on dismissal. 06/24/17 More alert-opens eyes and will move upper ext spontaneously. Non verbal. Continue Rocephin for urinary coverage. Urine culture with early growth. Serum sodium with slight decrease to 172 and creatinine decrease to 2.5. Continue 1/2NS at 150 cc/hr - 500 cc bolus this am as BP running low. INR above 10 - Vit K 5mg SQ x1. Speech working with patient - NPO therapeutic as swallow delayed. Wound team for sacral decubitus ulcer - likely need wound vac. 06/25/17 Slight improvement in mentation. Continue Rocephin for urinary coverage. Urine culture growing gram positive cocci. Serum sodium with decrease to 163 and creatinine decrease to 2.0. Change IVF to D5W with 20KCl at 125cc/hr. IV boluses as needed to help blood pressure. INR decreased to 4.4 - continue to monitor. Speech working with patient - Starting to have oral intake. Wound team for sacral decubitus ulcer - wound vac placed yesterday. 06/26/17 Sitting in bed. Eyes open, will move arms spontaneously. Nonverbal. Oral drive diminished-not able to take po even with assistance. BP variable-did receive bolus overnight due to low pressure. Maintaining saturations, but lungs sounding more course. Check portable CXR. Sodium with decrease to 159. Creatinine 1.5. Continue with D5W with 20KCl at 125cc/hr. INR decreased to 1.97. Could restart Coumadin per protocol as INR decreased. Will change to Ampicillin secondary to Enterococcus faecalis in urine. Speech working with patient - Starting to have oral intake. Continue wound vac for decubitus ulcer. 06/27/17 Little change. Oral intake with slight improvement. Nursing not reporting pain/ agitation. Continue Ampicillin for urinary coverage of Enterococcus faecalis. Coumadin restarted. Will give Lovenox 40mg SQ x1. Potassium with decrease to 2.9. Creatinine decrease to 1.2. Will give IV potassium boluses and then change IVF to D5W with 40KCl at 125cc /hr. Continue wound vac for decubitus ulcer. Oral intake as patient able. Blood pressure still low, but not seeing continued evidence for sepsis - can transfer to medical floor for continued care. 06/28 Continue Ampicillin (started 06/26) for urinary coverage of Enterococcus faecalis. Persistent Hypernatremia- Continue with IV fluids for hydration Wound vac and wound care as per recommendations Remains subtherapeutic- INR today 1.63 managed by pharmacy Recheck BMP and CBC tomorrow to follow blood counts, renal function and electrolytes 06/29/2017 I had a long talk with the patient's family including her daughter who is DPOA. I initially called on the phone and talked with her at length. I then spoke with her when she arrived to see her mom and then I spoke with her again after lab work revealed severe sepsis. I discussed with her her mom's worsening status with hypoxia, severe sepsis, and borderline hypotension. We currently have no ICU beds at [facility]. We discussed possible treatment including supple transfer to [facility] for ICU care if beds available versus keeping her in her current room on the medical floor and providing as aggressive of care as possible with limitations of being on the medical floor. After questions and concerns were answered, family did elect to keep the patient here at [facility] on the medical floor with the understanding that she is quite ill and her condition could worsen overnight. Roopa/TRINIDAD also decided for DO NOT RESUSCITATE. If over the next few days in ICU bed is available and it is thought the patient would benefit from ICU care they would like to consider transfer to ICU here at [facility]. If her condition worsens and she does not appear to be improving, at that time they might consider comfort care measures. Regarding severe sepsis will discontinue ampicillin which she was on for UTI with enterococcus and start Levaquin, vancomycin, and cefepime. Urine culture is pending. Chest x-ray is pending. Blood cultures are pending Fluid status is difficult to determine. I was concerned about pulmonary edema earlier today. Weight is up about 3-1/2 kg since admission. INR was +8.4 L. Earlier today with hypoxia and coarse wet breath sounds, Lasix 1 was given. Will await chest x-ray and may need to consider fluid bolus given her sepsis Consider adding bicarbonate to IV fluids for metabolic acidosis seen on basic metabolic profile. Continue wound VAC. Check CBC with differential, and renal panel tomorrow. Regarding nausea and vomiting, KUB was ordered. Reglan and Zofran were ordered. We'll change to DO NOT RESUSCITATE status per Roopa PHILLIP Greater than 70 minutes of critical care time was spent seeing and evaluating the patient and determining care plan. The patient is critically ill.
[2017-07-01] MEDS: MORPHINE SULFATE 2mg INJECTION IVP PRN (22:41)
[2017-07-02] MEDS: MORPHINE SULFATE 2mg INJECTION IVP PRN (02:15)
[2017-07-02] MEDS: CEFEPIME 1 GM in NS 100 ML IV SCH ×2 (02:20→07:29)
[2017-07-02] MEDS: METOCLOPRAMIDE 10mg/2ml INJECTION IVP SCH ×4 (06:37→23:47)
[2017-07-02] MEDS: SALINE FLUSH 10ml SYRINGE IVF PRN ×5 (06:39→23:48)
[2017-07-02] MEDS: PANTOPRAZOLE 40 MG INJECTION IVP SCH (09:36)
--- NOTE | 2017-07-02 11:20 | Wound Care Progress Note ---
Wound Center Progress Note: Late entry for 07-01-17 1400, In at this time to change wound vac for this pt. This RN saw pt quickly yesterday 06-30-17 to assess status of vac drsg. Staff was concerned by odor of wound however, I informed staff that sometime sacrum wounds often time get a foul odor even with the wound vac on. Drainage from wound vac was dark red. Today 07/02/17 upon return to see pt to change vac, wound vac drainage had increased greatly and had dark brown and stool appearance with very foul odor. Wound vac was immediately stopped, wound vac was removed and wound assessed. It was obvious by pt facial grimace that the wound had become more painful. It had changed from macerated to necrotic as an appearance of a Yariel Terminal Ulcer. At this time asked that Dr Evans consult Dr Keen and a Wet to dry drsg applied.
--- NOTE | 2017-07-02 12:20 | Progress Note ---
- Date 07/02/17 Subjective: Fatimah was lying awake in bed when I stopped by around 0830. She tracked me with her eyes but never offered any verbal response or facial expressions to indicate any communication. She was not in any distress. She breathed with her mouth open. No family was present this morning. Objective Vital signs: Temperature 97.4 F 07/02/17 11:00 Pulse Rate 97 07/02/17 11:00 Respiratory Rate 20 07/02/17 11:00 Blood Pressure 134/65 07/02/17 11:00 Pulse Oximetry 94 07/02/17 11:00 Height/Weight/BMI: Height 1.63 m Weight 67.2 kg Body Mass Index 25.9 - Constitutional Present: well nourished, well developed - Routine HEENT Exam Head: Present: normocephalic Eye: Present: PERRL. Absent: conjunctival icterus, scleral injection ENT: Present: mucous membranes dry - Routine Respiratory Exam Present: CTA bilaterally (anteriorly) - Routine Cardiovascular Exam Present: RRR, S1, S2 - Routine Abdominal Exam Present: soft, normoactive bowel sounds, non tender, ostomy - Routine Extremities Exam Present: no edema - Routine Skin Exam Present: dry, warm, wounds (sacral) - Routine Neurological Exam Present: alert able to track with eyes - Routine Psychiatric Exam Present: unable to assess Results - Labs CBC & Chem 7: 07/01/17 15:08 07/01/17 15:08 Microbiology Results: Microbiology 06/29/17 16:24 Peripheral/Iv Start Blood Culture - Preliminary No Growth After 2 Days 06/29/17 16:20 Peripheral/Iv Start Blood Culture - Preliminary No Growth After 2 Days 06/29/17 17:08 Urine, Cath Flores, Chronic Urine Culture - Final Suyapa species, not albicans Assessment and Plan (1) Hypernatremia Current visit: No Status: Acute Assessment and Plan: Assessment Severe sepsis based on urinary source of infection, SIRS criteria of leukocytosis, tachycardia and temperature less than 96.8 and organ dysfunction evidenced by SBP< 90, elevated creatinine, thrombocytopenia, MAP< 65, INR >1.5 New-onset severe sepsis 06/29/2017 based on lactate 3.6, tachycardia, hypoxia, elevated pro-calcitonin, borderline hypotensive -improved Healthcare associated pneumonia-cefepime, Levaquin, and vancomycin were initiated on 06/29/2017 Pulmonary edema -improved Severe hypernatremia (Na 177 on admission)-resolved Acute hypoxic respiratory failure -pulmonary edema and infiltrates on chest x- ray-resolved Emesis 06/29/2017 -rule out aspiration Hematemesis with positive gastric occult -she had a drop in hemoglobin today of 8.4, repeat hemoglobin 8.7 UTI - Enterococcus faecalis -currently on vancomycin JULIANA (creatinine 3.1 on admission) - resolved Elevated INR (INR >10 at presentation)-currently INR is therapeutic Peripheral vascular disease Sacral pressure ulcer/Yariel terminal ulcer -wound VAC removed leg ulcerations (POA) Dementia Diabetes, type II-diet controlled Seizure HTN HLD Paroxysmal A. 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 KUB showed no visible bowel gas probably representing fluid-filled loops of bowel. Plan No labs done today. PPN continues. Discussed with CM - family would like to visit with wound team to see what treatment options there are, and as of this morning, family is not yet ready to consult hospice. At this time will continue triple antibiotic therapy until further discussions with family. Patient would be appropriate for hospice care with combination of severe sepsis , multiple comorbid underlying diseases, need for PPN, dementia requiring full care, and now the Yariel Terminal Ulcer. 07/02/2017-5:30 PM-Dr. Evans-I reviewed this chart, the patient history, and the BOAT TESTER's/PA's documented findings as above. We discussed and formulated the assessment and plan as above with the additions below. The patient was seen earlier today. No family was present during my examination. The patient's eyes were open and she did look at me. She did not attempt to speak. Arms are folded up over her chest. Chest is clear to auscultation anteriorly. Cardiovascular reveals a regular rate and rhythm. Abdomen is soft and nontender. Extremities reveal no edema. Heel protectors are on. I did not reexamine the patient's wound today. I did examine the sacral wound last evening with Dr. Keen and she had a large open ulcer with exposed bone which appeared to be from the spinal column. I did discuss the patient's wound today with Marni, wound care nurse. She stated this was all for a Yariel's terminal ulcer. There is no treatment for this type of ulcer. I did talk extensively with the patient's daughter Roopa and her granddaughter. We discussed options including consulted hospice here in the hospital and then determining best plan of care. They did want to proceed with consulting with hospice and I notified the case manager specialist. Family is uncertain at this time if they would want to do hospice at home versus hospice in the [facility]. If the patient qualifies for inpatient hospice they think they would prefer this. They would not want inpatient hospice in [place]. We discussed initiating comfort care measures now and they were in agreement. I will discontinue all medications that are not signed to help with comfort. Will discontinue PPN. Greater than 40 minutes of time spent seeing and evaluating the patient in determining care plan for end-of-life with family. DVT Prophylaxis: Coumadin GI Prophylaxis: Protonix Resuscitation Status: Do Not Resuscitate - Physician Narrative Narrative: Date: 07/02/17 Time: 1219 Hospital Course Summary Disclaimer: The visit summary below is not to be considered part of the above Progress Note. Hospital Course: 06/23/17-hospital admission (CCU) Admit inpatient to CCU under the hospitalist service, Dr. Hernandes attending. Patient's stay is expected to exceed 2 overnights given her severe sepsis and comorbidities. IVF's bolused in ER per sepsis protocol and will be continued for hypernatremia , JULIANA, etc. Speech therapy consult to assess swallowing function and assist in diet recommendations. Ceftriaxone given in ER. Will continue daily dosing for UTI and infection to pressure ulcer. Consult wound team for treatment of pressure ulcers. Place Flores for accurate I&O measurements. Coumadin on hold given elevated INR. Vitamin K ordered. At this time, patient's daughter (DPOA-H) requests full code, but this may be negotiable at a future time. Care to return to Dr. Chairez on dismissal. 06/24/17 More alert-opens eyes and will move upper ext spontaneously. Non verbal. Continue Rocephin for urinary coverage. Urine culture with early growth. Serum sodium with slight decrease to 172 and creatinine decrease to 2.5. Continue 1/2NS at 150 cc/hr - 500 cc bolus this am as BP running low. INR above 10 - Vit K 5mg SQ x1. Speech working with patient - NPO therapeutic as swallow delayed. Wound team for sacral decubitus ulcer - likely need wound vac. 06/25/17 Slight improvement in mentation. Continue Rocephin for urinary coverage. Urine culture growing gram positive cocci. Serum sodium with decrease to 163 and creatinine decrease to 2.0. Change IVF to D5W with 20KCl at 125cc/hr. IV boluses as needed to help blood pressure. INR decreased to 4.4 - continue to monitor. Speech working with patient - Starting to have oral intake. Wound team for sacral decubitus ulcer - wound vac placed yesterday. 06/26/17 Sitting in bed. Eyes open, will move arms spontaneously. Nonverbal. Oral drive diminished-not able to take po even with assistance. BP variable-did receive bolus overnight due to low pressure. Maintaining saturations, but lungs sounding more course. Check portable CXR. Sodium with decrease to 159. Creatinine 1.5. Continue with D5W with 20KCl at 125cc/hr. INR decreased to 1.97. Could restart Coumadin per protocol as INR decreased. Will change to Ampicillin secondary to Enterococcus faecalis in urine. Speech working with patient - Starting to have oral intake. Continue wound vac for decubitus ulcer. 06/27/17 Little change. Oral intake with slight improvement. Nursing not reporting pain/ agitation. Continue Ampicillin for urinary coverage of Enterococcus faecalis. Coumadin restarted. Will give Lovenox 40mg SQ x1. Potassium with decrease to 2.9. Creatinine decrease to 1.2. Will give IV potassium boluses and then change IVF to D5W with 40KCl at 125cc /hr. Continue wound vac for decubitus ulcer. Oral intake as patient able. Blood pressure still low, but not seeing continued evidence for sepsis - can transfer to medical floor for continued care. 06/28 Continue Ampicillin (started 06/26) for urinary coverage of Enterococcus faecalis. Persistent Hypernatremia- Continue with IV fluids for hydration Wound vac and wound care as per recommendations Remains subtherapeutic- INR today 1.63 managed by pharmacy Recheck BMP and CBC tomorrow to follow blood counts, renal function and electrolytes 06/29/2017 I had a long talk with the patient's family including her daughter who is DPOA. I initially called on the phone and talked with her at length. I then spoke with her when she arrived to see her mom and then I spoke with her again after lab work revealed severe sepsis. I discussed with her her mom's worsening status with hypoxia, severe sepsis, and borderline hypotension. We currently have no ICU beds at [facility]. We discussed possible treatment including supple transfer to [facility] for ICU care if beds available versus keeping her in her current room on the medical floor and providing as aggressive of care as possible with limitations of being on the medical floor. After questions and concerns were answered, family did elect to keep the patient here at [facility] on the medical floor with the understanding that she is quite ill and her condition could worsen overnight. Roopa/TRINIDAD also decided for DO NOT RESUSCITATE. If over the next few days in ICU bed is available and it is thought the patient would benefit from ICU care they would like to consider transfer to ICU here at [facility]. If her condition worsens and she does not appear to be improving, at that time they might consider comfort care measures. Regarding severe sepsis will discontinue ampicillin which she was on for UTI with enterococcus and start Levaquin, vancomycin, and cefepime. Urine culture is pending. Chest x-ray is pending. Blood cultures are pending Fluid status is difficult to determine. I was concerned about pulmonary edema earlier today. Weight is up about 3-1/2 kg since admission. INR was +8.4 L. Earlier today with hypoxia and coarse wet breath sounds, Lasix 1 was given. Will await chest x-ray and may need to consider fluid bolus given her sepsis Consider adding bicarbonate to IV fluids for metabolic acidosis seen on basic metabolic profile. Continue wound VAC. Regarding nausea and vomiting, KUB was ordered. Reglan and Zofran were ordered. We'll change to DO NOT RESUSCITATE status per Roopa PHILLIP 07/01/17 After my initial visit with the patient this afternoon, the nurse notified me that she was concerned because of foul drainage from the patient's wound VAC that smelled like feces. I then did ask the wound and skin nurse to reevaluate the wound. She will remove the wound VAC and stated she was concerned for a possible enterocutaneous fistula and recommended surgical consultation. I did call and asked Dr. Keen to evaluate the patient's wound. I did stay in the room with him when he evaluated the wound. Unfortunately, she has a stage IV sacral pressure ulcer with infected and necrotic appearing tissue. In looking into the wound, one could unfortunately see her sacrum and the base of her spine which appeared yellowish brown and per Dr. Bogner was soft. He was concerned for severe osteomyelitis. He did not think surgical treatment would be beneficial. He did recommend comfort care to the patient's daughter Roopa, who his DPOA. I then spoke with Roopa afterwards and we discussed esters multiple medical issues that she is facing at this time. We discussed the severe wound with apparent infection of her lumbar spine, sacrum and coccyx. Roopa has decided to consult hospice in the morning and will likely decided for comfort care with hospice at home. She would like to continue PPN for tonight. I did inform her that hospice was unlikely to continue IV nutrition at home. We'll consult case management in the morning to discuss hospice consultation. 07/02/17 Discussed with CM - family would like to visit with wound team to see what treatment options there are, and as of this morning, family is not yet ready to consult hospice. At this time will continue triple antibiotic therapy until further discussions with family. Patient would be appropriate for hospice care with combination of severe sepsis , multiple comorbid underlying diseases, need for PPN, dementia requiring full care, and now the Yariel Terminal Ulcer.
[2017-07-02] MEDS ORDERED: LEVOFLOXACIN PB 750 MG/150 ML BAG IV SCH (13:00)
[2017-07-02] MEDS ORDERED: CEFEPIME 1 GM in NS 100 ML IV SCH (16:00)
[2017-07-02] MEDS: [UNRECOGNIZED DRUG - OTHER] IV SCH (17:05)
[2017-07-02] MEDS: POTASSIUM ACETATE IV SCH (17:05)
[2017-07-02] MEDS: SODIUM ACETATE IV SCH (17:05)
[2017-07-02] MEDS: MAGNESIUM SULFATE IV SCH (17:05)
[2017-07-03] MEDS: SALINE FLUSH 10ml SYRINGE IVF PRN (05:45)
[2017-07-03] MEDS: METOCLOPRAMIDE 10mg/2ml INJECTION IVP SCH ×4 (05:45→23:00)
[2017-07-03] MEDS: ZONISAMIDE 100 MG CAPSULE PO SCH (11:07)
[2017-07-03] MEDS: PANTOPRAZOLE 40 MG INJECTION IVP SCH (11:08)
[2017-07-03] MEDS: MORPHINE SULFATE 2mg INJECTION IVP PRN ×2 (11:09→22:25)
[2017-07-03] MEDS ORDERED: MORPHINE SULFATE 10mg/0.5ml ORAL LIQ SL PRN (14:51)
--- NOTE | 2017-07-03 15:08 | Progress Note ---
- Date 07/03/17 Subjective: Fatimah was seen this afternoon in her room accompanied by her daughter and son- in-law. She was able to eat a "Magic cup" this morning. She was awake and following me with her eyes. Her brows are a little furrowed which makes me think she might be in pain. She has a Flores in place with normal colored urine. She received some morphine this morning at 11 AM. I was notified by case management at Fatimah's family had met with hospice and were trying to make a decision whether to proceed with hospice. Objective Vital signs: Temperature 99.3 F 07/03/17 07:00 Pulse Rate 105 H 07/03/17 07:50 Respiratory Rate 14 07/03/17 07:50 Blood Pressure 129/69 07/03/17 07:00 Pulse Oximetry 92 07/03/17 07:50 Height/Weight/BMI: Height 1.63 m Weight 65.8 kg Body Mass Index 25.9 Comments: GEN awake, alert- HEENT-sclera anicteric, oropharynx is moist CV-regular rate and rhythm CHEST-coarse breath sounds, sounds like upper airway rhonchi ABD-soft, nontender with hypoactive bowel sounds -Flores in place with normal colored urine EXT-no edema, SCDs are on, heel protectors are on NEURO-nonverbal SKIN-warm and dry, I did not turn her to evaluate her sacral wound Results - Labs CBC & Chem 7: 07/01/17 15:08 07/01/17 15:08 Microbiology Results: Microbiology 06/29/17 16:20 Peripheral/Iv Start Blood Culture - Preliminary No Growth After 3 Days 06/29/17 16:24 Peripheral/Iv Start Blood Culture - Preliminary No Growth After 3 Days 06/29/17 17:08 Urine, Cath Flores, Chronic Urine Culture - Final Suyapa species, not albicans Assessment and Plan (1) Hypernatremia Current visit: No Status: Acute Assessment and Plan: Assessment Severe sepsis based on urinary source of infection, SIRS criteria of leukocytosis, tachycardia and temperature less than 96.8 and organ dysfunction evidenced by SBP< 90, elevated creatinine, thrombocytopenia, MAP< 65, INR >1.5 New-onset severe sepsis 06/29/2017 based on lactate 3.6, tachycardia, hypoxia, elevated pro-calcitonin, borderline hypotensive -improved Healthcare associated pneumonia-cefepime, Levaquin, and vancomycin were initiated on 06/29/2017 Pulmonary edema -improved Severe hypernatremia (Na 177 on admission)-resolved Acute hypoxic respiratory failure -pulmonary edema and infiltrates on chest x- ray-resolved Emesis 06/29/2017 -rule out aspiration Hematemesis with positive gastric occult -she had a drop in hemoglobin today of 8.4, repeat hemoglobin 8.7 UTI - Enterococcus faecalis -currently on vancomycin JULIANA (creatinine 3.1 on admission) - resolved Elevated INR (INR >10 at presentation)-currently INR is therapeutic Peripheral vascular disease Sacral pressure ulcer/Yariel terminal ulcer -wound VAC removed leg ulcerations (POA) Dementia Diabetes, type II-diet controlled Seizure HTN HLD Paroxysmal A. 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 KUB showed no visible bowel gas probably representing fluid-filled loops of bowel. Plan I did talk with Fatimah's family about options for hospice. They have decided to proceed with hospice at home. I talked with case management and the hospice nurse. They will not be able to get a hospital bed to her house until tomorrow. We will initiate Roxanol and oral Ativan here to make sure this keeps Fatimah comfortable prior to discharge. Comfort care measures initiated last evening. - Physician Narrative Narrative: Date: 07/03/17 Time: 1505 Hospital Course Summary Disclaimer: The visit summary below is not to be considered part of the above Progress Note. Hospital Course: 06/23/17-hospital admission (CCU) Admit inpatient to CCU under the hospitalist service, Dr. Hernandes attending. Patient's stay is expected to exceed 2 overnights given her severe sepsis and comorbidities. IVF's bolused in ER per sepsis protocol and will be continued for hypernatremia , JULIANA, etc. Speech therapy consult to assess swallowing function and assist in diet recommendations. Ceftriaxone given in ER. Will continue daily dosing for UTI and infection to pressure ulcer. Consult wound team for treatment of pressure ulcers. Place Flores for accurate I&O measurements. Coumadin on hold given elevated INR. Vitamin K ordered. At this time, patient's daughter (DPOA-H) requests full code, but this may be negotiable at a future time. Care to return to Dr. Chairez on dismissal. 06/24/17 More alert-opens eyes and will move upper ext spontaneously. Non verbal. Continue Rocephin for urinary coverage. Urine culture with early growth. Serum sodium with slight decrease to 172 and creatinine decrease to 2.5. Continue 1/2NS at 150 cc/hr - 500 cc bolus this am as BP running low. INR above 10 - Vit K 5mg SQ x1. Speech working with patient - NPO therapeutic as swallow delayed. Wound team for sacral decubitus ulcer - likely need wound vac. 06/25/17 Slight improvement in mentation. Continue Rocephin for urinary coverage. Urine culture growing gram positive cocci. Serum sodium with decrease to 163 and creatinine decrease to 2.0. Change IVF to D5W with 20KCl at 125cc/hr. IV boluses as needed to help blood pressure. INR decreased to 4.4 - continue to monitor. Speech working with patient - Starting to have oral intake. Wound team for sacral decubitus ulcer - wound vac placed yesterday. 06/26/17 Sitting in bed. Eyes open, will move arms spontaneously. Nonverbal. Oral drive diminished-not able to take po even with assistance. BP variable-did receive bolus overnight due to low pressure. Maintaining saturations, but lungs sounding more course. Check portable CXR. Sodium with decrease to 159. Creatinine 1.5. Continue with D5W with 20KCl at 125cc/hr. INR decreased to 1.97. Could restart Coumadin per protocol as INR decreased. Will change to Ampicillin secondary to Enterococcus faecalis in urine. Speech working with patient - Starting to have oral intake. Continue wound vac for decubitus ulcer. 06/27/17 Little change. Oral intake with slight improvement. Nursing not reporting pain/ agitation. Continue Ampicillin for urinary coverage of Enterococcus faecalis. Coumadin restarted. Will give Lovenox 40mg SQ x1. Potassium with decrease to 2.9. Creatinine decrease to 1.2. Will give IV potassium boluses and then change IVF to D5W with 40KCl at 125cc /hr. Continue wound vac for decubitus ulcer. Oral intake as patient able. Blood pressure still low, but not seeing continued evidence for sepsis - can transfer to medical floor for continued care. 06/28 Continue Ampicillin (started 06/26) for urinary coverage of Enterococcus faecalis. Persistent Hypernatremia- Continue with IV fluids for hydration Wound vac and wound care as per recommendations Remains subtherapeutic- INR today 1.63 managed by pharmacy Recheck BMP and CBC tomorrow to follow blood counts, renal function and electrolytes 06/29/2017 I had a long talk with the patient's family including her daughter who is DPOA. I initially called on the phone and talked with her at length. I then spoke with her when she arrived to see her mom and then I spoke with her again after lab work revealed severe sepsis. I discussed with her her mom's worsening status with hypoxia, severe sepsis, and borderline hypotension. We currently have no ICU beds at [facility]. We discussed possible treatment including supple transfer to [facility] for ICU care if beds available versus keeping her in her current room on the medical floor and providing as aggressive of care as possible with limitations of being on the medical floor. After questions and concerns were answered, family did elect to keep the patient here at [facility] on the medical floor with the understanding that she is quite ill and her condition could worsen overnight. Roopa/TRINIDAD also decided for DO NOT RESUSCITATE. If over the next few days in ICU bed is available and it is thought the patient would benefit from ICU care they would like to consider transfer to ICU here at [facility]. If her condition worsens and she does not appear to be improving, at that time they might consider comfort care measures. Regarding severe sepsis will discontinue ampicillin which she was on for UTI with enterococcus and start Levaquin, vancomycin, and cefepime. Urine culture is pending. Chest x-ray is pending. Blood cultures are pending Fluid status is difficult to determine. I was concerned about pulmonary edema earlier today. Weight is up about 3-1/2 kg since admission. INR was +8.4 L. Earlier today with hypoxia and coarse wet breath sounds, Lasix 1 was given. Will await chest x-ray and may need to consider fluid bolus given her sepsis Consider adding bicarbonate to IV fluids for metabolic acidosis seen on basic metabolic profile. Continue wound VAC. Regarding nausea and vomiting, KUB was ordered. Reglan and Zofran were ordered. We'll change to DO NOT RESUSCITATE status per Roopa PHILLIP 07/01/17 After my initial visit with the patient this afternoon, the nurse notified me that she was concerned because of foul drainage from the patient's wound VAC that smelled like feces. I then did ask the wound and skin nurse to reevaluate the wound. She will remove the wound VAC and stated she was concerned for a possible enterocutaneous fistula and recommended surgical consultation. I did call and asked Dr. Keen to evaluate the patient's wound. I did stay in the room with him when he evaluated the wound. Unfortunately, she has a stage IV sacral pressure ulcer with infected and necrotic appearing tissue. In looking into the wound, one could unfortunately see her sacrum and the base of her spine which appeared yellowish brown and per Dr. Keen was soft. He was concerned for severe osteomyelitis. He did not think surgical treatment would be beneficial. He did recommend comfort care to the patient's daughter Roopa, who his DPOA. I then spoke with Roopa afterwards and we discussed esters multiple medical issues that she is facing at this time. We discussed the severe wound with apparent infection of her lumbar spine, sacrum and coccyx. Roopa has decided to consult hospice in the morning and will likely decided for comfort care with hospice at home. She would like to continue PPN for tonight. I did inform her that hospice was unlikely to continue IV nutrition at home. We'll consult case management in the morning to discuss hospice consultation. 07/02/17 Discussed with CM - family would like to visit with wound team to see what treatment options there are, and as of this morning, family is not yet ready to consult hospice. At this time will continue triple antibiotic therapy until further discussions with family. Patient would be appropriate for hospice care with combination of severe sepsis , multiple comorbid underlying diseases, need for PPN, dementia requiring full care, and now the Yariel Terminal Ulcer.
[2017-07-03] MEDS ORDERED: LORazepam INTENSOL 1mg/0.5ml ORAL LIQUID SL PRN (15:13)
[2017-07-03] MEDS ORDERED: VANCOMYCIN - PHARMACY CONSULT MC ONE (18:16)
[2017-07-03] MEDS ORDERED: NS 1,000 ML IV SCH (18:30)
[2017-07-03] MEDS: CEFEPIME 1 GM in NS 100 ML IV SCH (18:52)
[2017-07-03] MEDS: LEVOFLOXACIN PB 750 MG/150 ML BAG IV SCH (19:40)
[2017-07-03] MEDS: LIDOCAINE 1% INJ 10 MG, POTASSIUM CHLORIDE INJ 10 MEQ in NS 100 ML IV SCH ×3 (20:39→23:18)
[2017-07-03] MEDS: 1/2 NS with KCL 20mEq 1,000 ML IV SCH (20:49)
[2017-07-04] MEDS: CEFEPIME 1 GM in NS 100 ML IV SCH ×3 (02:39→17:33)
[2017-07-04] MEDS: METOCLOPRAMIDE 10mg/2ml INJECTION IVP SCH ×4 (05:36→21:38)
[2017-07-04] MEDS: 1/2 NS with KCL 20mEq 1,000 ML IV SCH (06:51)
[2017-07-04] MEDS: ZONISAMIDE 100 MG CAPSULE PO SCH (08:02)
[2017-07-04] MEDS: PANTOPRAZOLE 40 MG INJECTION IVP SCH (08:03)
[2017-07-04] MEDS ORDERED: POTASSIUM PHOSPHATE (mMol) 30 MMOL in NS 500ml 500 ML IV SCH (08:15)
--- NOTE | 2017-07-04 08:23 | Pharmacy Consult-Antibiotics ---
Pharmacy Consult-Vancomycin - Laboratory Information WBC 5.7 T/MM3 (4.5-11.0) 07/04/17 05:11 BUN 13.0 MG/DL (7-17) 07/04/17 05:11 Creatinine 1.1 MG/DL (0.7-1.2) 07/04/17 05:11 Procalcitonin 2.19 NG/ML H* 06/29/17 16:20 - Consult Information We will restart vancomycin at 1.5gm ivpb q24h at 2100. We will continue to monitor and adjust. Thanks
[2017-07-04] MEDS: POTASSIUM CHLORIDE INJ 20 MEQ in D5W 1,000 ML IV SCH ×2 (10:23→23:05)
--- NOTE | 2017-07-04 14:56 | Progress Note ---
- Date 07/04/17 Subjective: The patient's daughter Roopa met with hospice yesterday morning and did decide to initiate hospice with plans for dismissal today. I then got a call yesterday late afternoon, early evening that Roopa, Fatimah's daughter and DPOA wanted to speak with me. She did tell me that she changed her mind and did not want hospice. She wanted her to get better and wanted to restart antibiotics for her wound infection. I did discuss with her again that Dr. Keen, stated after looking at the wound and finding what appeared to be osteomyelitis of her spine , did not think her wound could be treated. Roopa stated that she just wanted to give her a chance to get better and wanted to restart antibiotics. I did restart the patients antibiotics and IV fluids. Lab was obtained showing low potassium and phosphorus and these were replaced. Fatimah was seen this afternoon in her room. Family was here earlier today but they have gone home. The patient is nonverbal. Her nurse states that she appears comfortable except when she is repositioned. She has a Flores catheter in place with good urine output. Objective Vital signs: Temperature 98.3 F 07/04/17 07:00 Pulse Rate 100 07/04/17 07:00 Respiratory Rate 18 07/04/17 07:00 Blood Pressure 113/69 07/04/17 07:00 Pulse Oximetry 97 07/04/17 07:00 Height/Weight/BMI: Height 1.63 m Weight 67.1 kg Body Mass Index 25.9 Comments: GEN-the patient was sleeping on my arrival, she did awaken to exam. She is nonverbal. HEENT-sclera anicteric, pupils are equal, oropharynx is moist CV-regular rate and rhythm CHEST-clear to auscultation bilaterally ABD-soft, nontender, positive ostomy -Flores in place. She has good urine output EXT-edema, he'll protectors are on NEURO-she is nonverbal, unable to follow commands SKIN-warm and dry. I did not examine her sacral wound today. Results - Labs CBC & Chem 7: 07/04/17 05:11 07/04/17 05:11 Labs: Magnesium 1.9. Phosphorus 2.1. Microbiology Results: Microbiology 06/29/17 16:20 Peripheral/Iv Start Blood Culture - Preliminary No Growth After 4 Days 06/29/17 16:24 Peripheral/Iv Start Blood Culture - Preliminary No Growth After 4 Days 06/29/17 17:08 Urine, Cath Flores, Chronic Urine Culture - Final Suyapa species, not albicans Assessment and Plan (1) Hypernatremia Current visit: No Status: Acute Assessment and Plan: Assessment Severe sepsis based on urinary source of infection, SIRS criteria of leukocytosis, tachycardia and temperature less than 96.8 and organ dysfunction evidenced by SBP< 90, elevated creatinine, thrombocytopenia, MAP< 65, INR >1.5 New-onset severe sepsis 06/29/2017 based on lactate 3.6, tachycardia, hypoxia, elevated pro-calcitonin, borderline hypotensive -improved Healthcare associated pneumonia-cefepime, Levaquin, and vancomycin were initiated on 06/29/2017 Sacral pressure ulcer/Yariel terminal ulcer -wound VAC removed -07/01/2017-Dr. 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 KUB showed no visible bowel gas probably representing fluid-filled loops of bowel. Plan The patient's DPOA/daughter Roopa had decided for hospice yesterday, but later in the day reconsidered and decided she wanted to proceed with antibiotics to "give her a chance to get better." I did resume antibiotics, IV fluids and lab monitoring last night at Roopa's request. Unfortunately, in the long run I do not think that we will be able to resolve or heal her osteomyelitis and large sacral wound, and I did inform Roopa of my opinion last night. This morning, labs showed low potassium and low phosphorus. These are being replaced IV. Sodium was elevated at 152. IV fluids were changed to D5W with potassium. We will recheck lab tomorrow. Vital signs are stable. At this time, the patient appears comfortable. I did call Roopa and updated her on her mother status this afternoon. Resuscitation Status: Do Not Resuscitate - Time spent with patient Time with patient PN: 35 minutes - Physician Narrative Narrative: Date: 07/04/17 Time: 1450 Hospital Course Summary Disclaimer: The visit summary below is not to be considered part of the above Progress Note. Hospital Course: 06/23/17-hospital admission (CCU) Admit inpatient to CCU under the hospitalist service, Dr. Hernandes attending. Patient's stay is expected to exceed 2 overnights given her severe sepsis and comorbidities. IVF's bolused in ER per sepsis protocol and will be continued for hypernatremia , JULIANA, etc. Speech therapy consult to assess swallowing function and assist in diet recommendations. Ceftriaxone given in ER. Will continue daily dosing for UTI and infection to pressure ulcer. Consult wound team for treatment of pressure ulcers. Place Flores for accurate I&O measurements. Coumadin on hold given elevated INR. Vitamin K ordered. At this time, patient's daughter (DPOA-H) requests full code, but this may be negotiable at a future time. Care to return to Dr. Chairez on dismissal. 06/24/17 More alert-opens eyes and will move upper ext spontaneously. Non verbal. Continue Rocephin for urinary coverage. Urine culture with early growth. Serum sodium with slight decrease to 172 and creatinine decrease to 2.5. Continue 1/2NS at 150 cc/hr - 500 cc bolus this am as BP running low. INR above 10 - Vit K 5mg SQ x1. Speech working with patient - NPO therapeutic as swallow delayed. Wound team for sacral decubitus ulcer - likely need wound vac. 06/25/17 Slight improvement in mentation. Continue Rocephin for urinary coverage. Urine culture growing gram positive cocci. Serum sodium with decrease to 163 and creatinine decrease to 2.0. Change IVF to D5W with 20KCl at 125cc/hr. IV boluses as needed to help blood pressure. INR decreased to 4.4 - continue to monitor. Speech working with patient - Starting to have oral intake. Wound team for sacral decubitus ulcer - wound vac placed yesterday. 06/26/17 Sitting in bed. Eyes open, will move arms spontaneously. Nonverbal. Oral drive diminished-not able to take po even with assistance. BP variable-did receive bolus overnight due to low pressure. Maintaining saturations, but lungs sounding more course. Check portable CXR. Sodium with decrease to 159. Creatinine 1.5. Continue with D5W with 20KCl at 125cc/hr. INR decreased to 1.97. Could restart Coumadin per protocol as INR decreased. Will change to Ampicillin secondary to Enterococcus faecalis in urine. Speech working with patient - Starting to have oral intake. Continue wound vac for decubitus ulcer. 06/27/17 Little change. Oral intake with slight improvement. Nursing not reporting pain/ agitation. Continue Ampicillin for urinary coverage of Enterococcus faecalis. Coumadin restarted. Will give Lovenox 40mg SQ x1. Potassium with decrease to 2.9. Creatinine decrease to 1.2. Will give IV potassium boluses and then change IVF to D5W with 40KCl at 125cc /hr. Continue wound vac for decubitus ulcer. Oral intake as patient able. Blood pressure still low, but not seeing continued evidence for sepsis - can transfer to medical floor for continued care. 06/28 Continue Ampicillin (started 06/26) for urinary coverage of Enterococcus faecalis. Persistent Hypernatremia- Continue with IV fluids for hydration Wound vac and wound care as per recommendations Remains subtherapeutic- INR today 1.63 managed by pharmacy Recheck BMP and CBC tomorrow to follow blood counts, renal function and electrolytes 06/29/2017 I had a long talk with the patient's family including her daughter who is DPOA. I initially called on the phone and talked with her at length. I then spoke with her when she arrived to see her mom and then I spoke with her again after lab work revealed severe sepsis. I discussed with her her mom's worsening status with hypoxia, severe sepsis, and borderline hypotension. We currently have no ICU beds at [facility]. We discussed possible treatment including supple transfer to [facility] for ICU care if beds available versus keeping her in her current room on the medical floor and providing as aggressive of care as possible with limitations of being on the medical floor. After questions and concerns were answered, family did elect to keep the patient here at [facility] on the medical floor with the understanding that she is quite ill and her condition could worsen overnight. Roopa/TRINIDAD also decided for DO NOT RESUSCITATE. If over the next few days in ICU bed is available and it is thought the patient would benefit from ICU care they would like to consider transfer to ICU here at [facility]. If her condition worsens and she does not appear to be improving, at that time they might consider comfort care measures. Regarding severe sepsis will discontinue ampicillin which she was on for UTI with enterococcus and start Levaquin, vancomycin, and cefepime. Urine culture is pending. Chest x-ray is pending. Blood cultures are pending Fluid status is difficult to determine. I was concerned about pulmonary edema earlier today. Weight is up about 3-1/2 kg since admission. INR was +8.4 L. Earlier today with hypoxia and coarse wet breath sounds, Lasix 1 was given. Will await chest x-ray and may need to consider fluid bolus given her sepsis Consider adding bicarbonate to IV fluids for metabolic acidosis seen on basic metabolic profile. Continue wound VAC. Regarding nausea and vomiting, KUB was ordered. Reglan and Zofran were ordered. We'll change to DO NOT RESUSCITATE status per Roopa PHILLIP 07/01/17 After my initial visit with the patient this afternoon, the nurse notified me that she was concerned because of foul drainage from the patient's wound VAC that smelled like feces. I then did ask the wound and skin nurse to reevaluate the wound. She will remove the wound VAC and stated she was concerned for a possible enterocutaneous fistula and recommended surgical consultation. I did call and asked Dr. Keen to evaluate the patient's wound. I did stay in the room with him when he evaluated the wound. Unfortunately, she has a stage IV sacral pressure ulcer with infected and necrotic appearing tissue. In looking into the wound, one could unfortunately see her sacrum and the base of her spine which appeared yellowish brown and per Dr. Keen was soft. He was concerned for severe osteomyelitis. He did not think surgical treatment would be beneficial. He did recommend comfort care to the patient's daughter Roopa, who his DPOA. I then spoke with Roopa afterwards and we discussed esters multiple medical issues that she is facing at this time. We discussed the severe wound with apparent infection of her lumbar spine, sacrum and coccyx. Roopa has decided to consult hospice in the morning and will likely decided for comfort care with hospice at home. She would like to continue PPN for tonight. I did inform her that hospice was unlikely to continue IV nutrition at home. We'll consult case management in the morning to discuss hospice consultation. 07/02/17 Discussed with CM - family would like to visit with wound team to see what treatment options there are, and as of this morning, family is not yet ready to consult hospice. At this time will continue triple antibiotic therapy until further discussions with family. Patient would be appropriate for hospice care with combination of severe sepsis , multiple comorbid underlying diseases, need for PPN, dementia requiring full care, and now the Yariel Terminal Ulcer. 07/03/2017 Plan I did talk with Fatimah's family about options for hospice. They have decided to proceed with hospice at home. I talked with case management and the hospice nurse. They will not be able to get a hospital bed to her house until tomorrow. We will initiate Roxanol and oral Ativan here to make sure this keeps Fatimah comfortable prior to discharge. Comfort care measures initiated last evening. 07/04/2017 The patient's DPOA/daughter Roopa had decided for hospice yesterday, but later in the day reconsidered and decided she wanted to proceed with antibiotics to "give her a chance to get better." I did resume antibiotics, IV fluids and lab monitoring last night at Roopa's request. Unfortunately, in the long run I do not think that we will be able to resolve or heal her osteomyelitis and large sacral wound, and I did inform Roopa of my opinion last night. This morning, labs showed low potassium and low phosphorus. These are being replaced IV. Sodium was elevated at 152. IV fluids were changed to D5W with potassium. We will recheck lab tomorrow. Vital signs are stable. At this time, the patient appears comfortable. I did call Roopa and updated her on her mother status this afternoon.
[2017-07-04] MEDS: LEVOFLOXACIN PB 750 MG/150 ML BAG IV SCH (18:16)
[2017-07-04] MEDS: MORPHINE SULFATE 2mg INJECTION IVP PRN (21:38)
[2017-07-04] MEDS: SALINE FLUSH 10ml SYRINGE IVF PRN (21:39)
[2017-07-05] MEDS: CEFEPIME 1 GM in NS 100 ML IV SCH ×3 (02:05→17:57)
[2017-07-05] MEDS: METOCLOPRAMIDE 10mg/2ml INJECTION IVP SCH ×4 (05:00→23:59)
[2017-07-05] MEDS: SALINE FLUSH 10ml SYRINGE IVF PRN (05:00)
[2017-07-05] MEDS: MORPHINE SULFATE 2mg INJECTION IVP PRN ×2 (07:32→20:09)
[2017-07-05] MEDS: PANTOPRAZOLE 40 MG INJECTION IVP SCH (08:43)
[2017-07-05] MEDS: ZONISAMIDE 100 MG CAPSULE PO SCH (08:49)
--- NOTE | 2017-07-05 10:34 | Wound Care Progress Note ---
Wound Center Progress Note: Requested to see pt and discuss with family about Yariel Terminal Ulcer and end of life care. This discussion took place at bedside with the daughter and the son. 30 mins spent talking and answering questions about wound care. After discussing the sacral wound was uncovered and family was able to visualize wound. Wound was then redressed with a wet NS gauze packing and an ABD. Oliveros RN at bedside with this RN for discussion.
--- NOTE | 2017-07-05 10:42 | Progress Note ---
- Date 07/05/17 Subjective: Fatimah was sleeping in bed, no family was present. She did not awaken. She was in no distress. Marni from wound care discussed the Yariel ulcer with son/ daughter. Objective Vital signs: Temperature 99.1 F 07/05/17 07:40 Pulse Rate 97 07/05/17 07:40 Respiratory Rate 20 07/05/17 07:40 Blood Pressure 135/83 07/05/17 07:40 Pulse Oximetry 96 07/05/17 07:40 Height/Weight/BMI: Height 1.63 m Weight 67.8 kg Body Mass Index 25.9 - Constitutional Present: no acute distress, well nourished, well developed - Routine HEENT Exam Head: Present: normocephalic - Routine Respiratory Exam Present: decreased breath sounds - Routine Cardiovascular Exam Present: RRR, S1, S2 - Routine Abdominal Exam Present: soft, non tender - Routine Extremities Exam Present: no edema - Routine Skin Exam Present: intact Comments: dressing overlying coccyx - Routine Neurological Exam Absent: alert, oriented X3 - Routine Psychiatric Exam Present: unable to assess Results - Labs CBC & Chem 7: 07/06/17 03:53 07/06/17 03:53 Microbiology Results: Microbiology 06/29/17 16:24 Peripheral/Iv Start Blood Culture - Final No Growth After 5 Days 06/29/17 16:20 Peripheral/Iv Start Blood Culture - Final No Growth After 5 Days 06/29/17 17:08 Urine, Cath Flores, Chronic Urine Culture - Final Suyapa species, not albicans Assessment and Plan (1) Hypernatremia Status: Acute Assessment and Plan: Assessment Severe sepsis based on urinary source of infection, SIRS criteria of leukocytosis, tachycardia and temperature less than 96.8 and organ dysfunction evidenced by SBP< 90, elevated creatinine, thrombocytopenia, MAP< 65, INR >1.5 New-onset severe sepsis 06/29/2017 based on lactate 3.6, tachycardia, hypoxia, elevated pro-calcitonin, borderline hypotensive -improved Healthcare associated pneumonia-cefepime, Levaquin, and vancomycin were initiated on 06/29/2017 Sacral pressure ulcer/Yariel terminal ulcer -wound VAC removed -07/01/2017-Dr. 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 KUB showed no visible bowel gas probably representing fluid-filled loops of bowel. Liz Grider RN from wound care & pt's RN both had discussion regarding Yariel Terminal Ulcer with Fatimah's son and daughter today. By the time I arrived to discuss further, they had already left. They indicated to nursing staff that they will discuss this finding amongst themselves and return later. I've asked the nurse to call me when they arrive. Medically, she is unable to take in anything orally and electrolytes are abnormal but slightly improved (Na 150, K 3.4, Ph 2.5) after IVF were changed yesterday. Vital signs are stable. However, with her significant morbidity and severe illness (severe sepsis, HCAP , UTI, now open non-treatable coccygeal ulcer), inability to maintain oral intake, ambulate, communicate effectively, etc., the hospitalist service recommends comfort care and hospice. Addendum by Dr. Briones: Seen and examined patient on same day as the above note. Agree with subjective note, physical exam, assessment and plan. Comprehensive physical findings correlate to the above note. Spent extensive time (greater than 30 minutes )in discussion with the family on the inevitable outcome of this patient's terminal condition. Documented on [employer] speech to text. Efforts to correct speech recognition errors performed, but variation may exist Resuscitation Status: Do Not Resuscitate - Physician Narrative Narrative: Date: 07/05/17 Time: 1038 Hospital Course Summary Disclaimer: The visit summary below is not to be considered part of the above Progress Note. Hospital Course: 06/23/17-hospital admission (CCU) Admit inpatient to CCU under the hospitalist service, Dr. Hernandes attending. Patient's stay is expected to exceed 2 overnights given her severe sepsis and comorbidities. IVF's bolused in ER per sepsis protocol and will be continued for hypernatremia , JULIANA, etc. Speech therapy consult to assess swallowing function and assist in diet recommendations. Ceftriaxone given in ER. Will continue daily dosing for UTI and infection to pressure ulcer. Consult wound team for treatment of pressure ulcers. Place Flores for accurate I&O measurements. Coumadin on hold given elevated INR. Vitamin K ordered. At this time, patient's daughter ([id number]) requests full code, but this may be negotiable at a future time. Care to return to Dr. Chairez on dismissal. 06/24/17 More alert-opens eyes and will move upper ext spontaneously. Non verbal. Continue Rocephin for urinary coverage. Urine culture with early growth. Serum sodium with slight decrease to 172 and creatinine decrease to 2.5. Continue 1/2NS at 150 cc/hr - 500 cc bolus this am as BP running low. INR above 10 - Vit K 5mg SQ x1. Speech working with patient - NPO therapeutic as swallow delayed. Wound team for sacral decubitus ulcer - likely need wound vac. 06/25/17 Slight improvement in mentation. Continue Rocephin for urinary coverage. Urine culture growing gram positive cocci. Serum sodium with decrease to 163 and creatinine decrease to 2.0. Change IVF to D5W with 20KCl at 125cc/hr. IV boluses as needed to help blood pressure. INR decreased to 4.4 - continue to monitor. Speech working with patient - Starting to have oral intake. Wound team for sacral decubitus ulcer - wound vac placed yesterday. 06/26/17 Sitting in bed. Eyes open, will move arms spontaneously. Nonverbal. Oral drive diminished-not able to take po even with assistance. BP variable-did receive bolus overnight due to low pressure. Maintaining saturations, but lungs sounding more course. Check portable CXR. Sodium with decrease to 159. Creatinine 1.5. Continue with D5W with 20KCl at 125cc/hr. INR decreased to 1.97. Could restart Coumadin per protocol as INR decreased. Will change to Ampicillin secondary to Enterococcus faecalis in urine. Speech working with patient - Starting to have oral intake. Continue wound vac for decubitus ulcer. 06/27/17 Little change. Oral intake with slight improvement. Nursing not reporting pain/ agitation. Continue Ampicillin for urinary coverage of Enterococcus faecalis. Coumadin restarted. Will give Lovenox 40mg SQ x1. Potassium with decrease to 2.9. Creatinine decrease to 1.2. Will give IV potassium boluses and then change IVF to D5W with 40KCl at 125cc /hr. Continue wound vac for decubitus ulcer. Oral intake as patient able. Blood pressure still low, but not seeing continued evidence for sepsis - can transfer to medical floor for continued care. 06/28 Continue Ampicillin (started 06/26) for urinary coverage of Enterococcus faecalis. Persistent Hypernatremia- Continue with IV fluids for hydration Wound vac and wound care as per recommendations Remains subtherapeutic- INR today 1.63 managed by pharmacy Recheck BMP and CBC tomorrow to follow blood counts, renal function and electrolytes 06/29/2017 I had a long talk with the patient's family including her daughter who is DPOA. I initially called on the phone and talked with her at length. I then spoke with her when she arrived to see her mom and then I spoke with her again after lab work revealed severe sepsis. I discussed with her her mom's worsening status with hypoxia, severe sepsis, and borderline hypotension. We currently have no ICU beds at [facility]. We discussed possible treatment including supple transfer to [facility] for ICU care if beds available versus keeping her in her current room on the medical floor and providing as aggressive of care as possible with limitations of being on the medical floor. After questions and concerns were answered, family did elect to keep the patient here at [facility] on the medical floor with the understanding that she is quite ill and her condition could worsen overnight. Roopa/TRINIDAD also decided for DO NOT RESUSCITATE. If over the next few days in ICU bed is available and it is thought the patient would benefit from ICU care they would like to consider transfer to ICU here at [facility]. If her condition worsens and she does not appear to be improving, at that time they might consider comfort care measures. Regarding severe sepsis will discontinue ampicillin which she was on for UTI with enterococcus and start Levaquin, vancomycin, and cefepime. Urine culture is pending. Chest x-ray is pending. Blood cultures are pending Fluid status is difficult to determine. I was concerned about pulmonary edema earlier today. Weight is up about 3-1/2 kg since admission. INR was +8.4 L. Earlier today with hypoxia and coarse wet breath sounds, Lasix 1 was given. Will await chest x-ray and may need to consider fluid bolus given her sepsis Consider adding bicarbonate to IV fluids for metabolic acidosis seen on basic metabolic profile. Continue wound VAC. Regarding nausea and vomiting, KUB was ordered. Reglan and Zofran were ordered. We'll change to DO NOT RESUSCITATE status per Roopa PHILLIP 07/01/17 After my initial visit with the patient this afternoon, the nurse notified me that she was concerned because of foul drainage from the patient's wound VAC that smelled like feces. I then did ask the wound and skin nurse to reevaluate the wound. She will remove the wound VAC and stated she was concerned for a possible enterocutaneous fistula and recommended surgical consultation. I did call and asked Dr. Keen to evaluate the patient's wound. I did stay in the room with him when he evaluated the wound. Unfortunately, she has a stage IV sacral pressure ulcer with infected and necrotic appearing tissue. In looking into the wound, one could unfortunately see her sacrum and the base of her spine which appeared yellowish brown and per Dr. Keen was soft. He was concerned for severe osteomyelitis. He did not think surgical treatment would be beneficial. He did recommend comfort care to the patient's daughter Roopa, who his DPOA. I then spoke with Roopa afterwards and we discussed esters multiple medical issues that she is facing at this time. We discussed the severe wound with apparent infection of her lumbar spine, sacrum and coccyx. Roopa has decided to consult hospice in the morning and will likely decided for comfort care with hospice at home. She would like to continue PPN for tonight. I did inform her that hospice was unlikely to continue IV nutrition at home. We'll consult case management in the morning to discuss hospice consultation. 07/02/17 Discussed with CM - family would like to visit with wound team to see what treatment options there are, and as of this morning, family is not yet ready to consult hospice. At this time will continue triple antibiotic therapy until further discussions with family. Patient would be appropriate for hospice care with combination of severe sepsis , multiple comorbid underlying diseases, need for PPN, dementia requiring full care, and now the Yariel Terminal Ulcer. 07/03/2017 I did talk with Fatimah's family about options for hospice. They have decided to proceed with hospice at home. I talked with case management and the hospice nurse. They will not be able to get a hospital bed to her house until tomorrow. We will initiate Roxanol and oral Ativan here to make sure this keeps Fatimah comfortable prior to discharge. Comfort care measures initiated last evening. 07/04/2017 The patient's DPOA/daughter Roopa had decided for hospice yesterday, but later in the day reconsidered and decided she wanted to proceed with antibiotics to "give her a chance to get better." I did resume antibiotics, IV fluids and lab monitoring last night at Roopa's request. Unfortunately, in the long run I do not think that we will be able to resolve or heal her osteomyelitis and large sacral wound, and I did inform Roopa of my opinion last night. This morning, labs showed low potassium and low phosphorus. These are being replaced IV. Sodium was elevated at 152. IV fluids were changed to D5W with potassium. We will recheck lab tomorrow. Vital signs are stable. At this time, the patient appears comfortable. 07/05/17 Marni RN from wound care & pt's RN both had discussion regarding Yariel Terminal Ulcer with Fatimah's son and daughter today. By the time I arrived to discuss further, they had already left. They indicated to nursing staff that they will discuss this finding amongst themselves and return later. I've asked the nurse to call me when they arrive. Medically, she is unable to take in anything orally and electrolytes are abnormal but slightly improved (Na 150, K 3.4, Ph 2.5) after IVF were changed yesterday. Vital signs are stable. However, with her significant morbidity and severe illness (severe sepsis, HCAP , UTI, now open non-treatable coccygeal ulcer), inability to maintain oral intake, ambulate, communicate effectively, etc., the hospitalist service recommends comfort care and hospice. Addendum entered and electronically signed by Darling Shen APRN 07/05/17 15: 21: 30 minute discussion with Fatimah's son, daughter and granddaughter. They had several questions about whether or not this could've been prevented and treated earlier on, and ruminate on what-if situations. I provided supportive listening and answered medical questions as they arose to the best of my ability. We talked about current medical status and overall poor prognosis. Family does not believe that she will recover from this and would like to resume comfort care with a focus on pain management. They have already contacted [facility] hospice, and they know that this is a Medicare benefit. Discussed with case management, will plan on discharge home with hospice tomorrow.
[2017-07-05] MEDS: POTASSIUM CHLORIDE INJ 20 MEQ in D5W 1,000 ML IV SCH (11:57)
[2017-07-05] MEDS ORDERED: FALL RISK - PHARMACY CONSULT XX ONE (16:25)
[2017-07-05] MEDS: LEVOFLOXACIN PB 750 MG/150 ML BAG IV SCH (18:45)
[2017-07-06] MEDS: CEFEPIME 1 GM in NS 100 ML IV SCH ×3 (02:33→17:47)
[2017-07-06] MEDS: POTASSIUM CHLORIDE INJ 20 MEQ in D5W 1,000 ML IV SCH (04:28)
[2017-07-06] MEDS: METOCLOPRAMIDE 10mg/2ml INJECTION IVP SCH ×4 (05:57→22:06)
--- NOTE | 2017-07-06 09:44 | Pharmacy Consult-Antibiotics ---
Pharmacy Consult-Vancomycin - Laboratory Information WBC 5.1 T/MM3 (4.5-11.0) 07/06/17 03:53 BUN 7.0 MG/DL (7-17) 07/06/17 03:53 Creatinine 0.9 MG/DL (0.7-1.2) 07/06/17 03:53 Procalcitonin 2.19 NG/ML H* 06/29/17 16:20 Vancomycin Trough 21.77 UG/ML (15-20) H* 07/05/17 20:18 - Consult Information VANCOMYCIN CONSULT: Vancomycin Trough = 21.77 mcg/ml. Today's SCr = 0.9 mg/dl. Will give Vancomycin 1,250 mg IV q24hrs. Will continue to monitor and make adjustments accordingly. Thank you.
[2017-07-06] MEDS: PANTOPRAZOLE 40 MG INJECTION IVP SCH (09:46)
[2017-07-06] MEDS: ZONISAMIDE 100 MG CAPSULE PO SCH (09:47)
[2017-07-06] MEDS ORDERED: SALINE FLUSH 10ml SYRINGE ONE (13:36)
[2017-07-06] MEDS ORDERED: IOHEXOL 300mg/ml 100ml INJECTION ONE (13:36)
[2017-07-06] MEDS ORDERED: NS 100 ML ONE (13:36)
[2017-07-06] MEDS ORDERED: DIATRIZOATE MEGLUMINE/SOD. (66%/10%) 120ml SOLN ONE (13:58)
--- NOTE | 2017-07-06 14:41 | CT Scan Report ---
Indication: Lesion, likely Yariel Ulcer PROCEDURE: CT abdomen pelvis w con: Encounter: Initial Comparison: None. Technique: Helical imaging was performed through the abdomen and pelvis after the uneventful IV administration of IV contrast. 3-dimensional volume rendered reconstructions were performed on the helically acquired data. Findings: There are small bilateral pleural effusions with probably passive dependent atelectasis. Heart size is normal. No pericardial effusion. The liver enhances fairly homogeneously. The spleen enhances homogeneously. Adrenal glands are normal. The gallbladder is thin-walled and nondistended without definite stones. There are bilateral intrarenal nonobstructing urinary calculi with a stone in the upper left ureter that may be causing some mild to moderate left hydronephrosis. There is also a stone in the right ureter/ureteropelvic junction that is dependent and is nonobstructing when supine. The pancreas is homogeneous in density and uniform in contour. The abdominal aorta is nonaneurysmal with moderate calcific atherosclerotic disease. There is an anterior abdominal wall diastases/hernia defect at the ostomy site. No evidence for bowel obstruction. No retroperitoneal or mesenteric adenopathy. Pelvis: There are stones in the urinary bladder which is decompressed. There is a Flores catheter in place. No free fluid or pelvic sidewall adenopathy. Rectal contrast was instilled into the rectal stump and there is no clear communication from the rectal stone to the sacral ulcer. There is soft tissue ulceration of the posterior sacral region with bony destruction of the distal sacrum and coccyx. Impression: Bony destruction of the lower sacrum without communication to the small or large bowel suggesting decubitus ulceration. Bladder calculi and bilateral intrarenal nonobstructing calculi with possible obstructing ureteral calculus in the upper left ureter with mild to moderate hydronephrosis. Anterior abdominal wall diastases/hernia at the ostomy site without evidence for bowel obstruction. Bilateral pleural effusions with bibasilar dependent atelectasis. .
[2017-07-06] MEDS ORDERED: ALBUTEROL/IPRATROPIUM 2.5mg-0.5mg/3ml NEB AEROSOL PRN (15:51)
[2017-07-06] MEDS ORDERED: ALBUTEROL/IPRATROPIUM 2.5mg-0.5mg/3ml NEB AEROSOL SCH (15:52)
[2017-07-06] MEDS: LEVOFLOXACIN PB 750 MG/150 ML BAG IV SCH (18:40)
--- NOTE | 2017-07-06 20:32 | Progress Note ---
- Date 07/06/17 Subjective: Patient reminds nonverbal but today is opening up her eyes and making eye contact. Multiple family members in the room and she does appear to orient to the conversation. She does not however make any effort to participate. Objective Vital signs: Temperature 98.6 F 07/06/17 19:52 Pulse Rate 105 H 07/06/17 19:52 Respiratory Rate 16 07/06/17 19:52 Blood Pressure 139/69 07/06/17 19:52 Pulse Oximetry 97 07/06/17 19:52 Height/Weight/BMI: Height 5 ft 4 in Weight 68 kg Body Mass Index 25.9 - Constitutional Present: no acute distress, well nourished, well developed - Routine HEENT Exam Head: Present: normocephalic, atraumatic Eye: Present: EOMI ENT: Present: mucous membranes moist, dentition normal - Routine Respiratory Exam Present: CTA bilaterally. Absent: wheezes - Routine Cardiovascular Exam Present: RRR. Absent: murmur - Routine Abdominal Exam Present: soft, normoactive bowel sounds, non distended. Absent: tenderness - Routine Rectal Exam Patient deferred: visual exam - Routine Extremities Exam Present: normal capillary refill - Routine Back/Spine/Pelvis Exam Pelvis: Present: coccyx tenderness Comments: Patient's wound (POA) remains packed and dressed with moderate seepage - Routine Skin Exam Present: dry, warm - Routine Neurological Exam Present: alert, moving all extremities. 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 Jean-Baptiste in radiology in regard to the families multiple concerns and to get a better understanding of the character of this sacral ulcer. At radiology is requesting, I ordered a CT of the abdomen and pelvis with oral and rectal contrast to determine if there was a tracking fistula from either of the intestines. Not one to be seen. The family reports that the patient had been on antibiotics within the 1st week of this lesion erupting. They've taken her back to wound care on a fairly regular outpatient basis until she was admitted here. All of this correlates to a Yariel terminal ulcer. Assessment Sacral pressure ulcer/Yariel terminal ulcer -wound VAC removed -07/01/2017-Dr. 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 fib History of PE following colon surgery (2007)-on warfarin Plan I spent greater than 30 minutes in direct discussion of their mothers poor prognosis with multiple family members including Roopa who appears to be the decision-making daughter. There is a great deal of confusion or denial regarding their mothers outcome. As part of their understanding process I ordered a CT of the abdomen and pelvis with oral and rectal contrast anticipating that the fistula might be part of the process. There was not however the patient does have chronic necrosis of the sacrum and coccygeal bones. Medically, she is unable to take in anything orally and electrolytes are abnormal but slightly improved (Na 150, K 3.4, Ph 2.5) after IVF were changed yesterday. Vital signs are stable. However, with her significant morbidity and severe illness (severe sepsis, HCAP , UTI, now open non-treatable coccygeal ulcer), inability to maintain oral intake, ambulate, communicate effectively, etc., the hospitalist service recommends comfort care and hospice. Resuscitation Status: Do Not Resuscitate - Time spent with patient Time with patient PN: 70 minutes - Physician Narrative Narrative: Date: 07/06/17 Time: 2028 Hospital Course Summary Disclaimer: The visit summary below is not to be considered part of the above Progress Note. Hospital Course: 06/23/17-hospital admission (CCU) Admit inpatient to CCU under the hospitalist service, Dr. Hernandes attending. Patient's stay is expected to exceed 2 overnights given her severe sepsis and comorbidities. IVF's bolused in ER per sepsis protocol and will be continued for hypernatremia , JULIANA, etc. Speech therapy consult to assess swallowing function and assist in diet recommendations. Ceftriaxone given in ER. Will continue daily dosing for UTI and infection to pressure ulcer. Consult wound team for treatment of pressure ulcers. Place Flores for accurate I&O measurements. Coumadin on hold given elevated INR. Vitamin K ordered. At this time, patient's daughter ([id number]-H) requests full code, but this may be negotiable at a future time. Care to return to Dr. Chairez on dismissal. 06/24/17 More alert-opens eyes and will move upper ext spontaneously. Non verbal. Continue Rocephin for urinary coverage. Urine culture with early growth. Serum sodium with slight decrease to 172 and creatinine decrease to 2.5. Continue 1/2NS at 150 cc/hr - 500 cc bolus this am as BP running low. INR above 10 - Vit K 5mg SQ x1. Speech working with patient - NPO therapeutic as swallow delayed. Wound team for sacral decubitus ulcer - likely need wound vac. 06/25/17 Slight improvement in mentation. Continue Rocephin for urinary coverage. Urine culture growing gram positive cocci. Serum sodium with decrease to 163 and creatinine decrease to 2.0. Change IVF to D5W with 20KCl at 125cc/hr. IV boluses as needed to help blood pressure. INR decreased to 4.4 - continue to monitor. Speech working with patient - Starting to have oral intake. Wound team for sacral decubitus ulcer - wound vac placed yesterday. 06/26/17 Sitting in bed. Eyes open, will move arms spontaneously. Nonverbal. Oral drive diminished-not able to take po even with assistance. BP variable-did receive bolus overnight due to low pressure. Maintaining saturations, but lungs sounding more course. Check portable CXR. Sodium with decrease to 159. Creatinine 1.5. Continue with D5W with 20KCl at 125cc/hr. INR decreased to 1.97. Could restart Coumadin per protocol as INR decreased. Will change to Ampicillin secondary to Enterococcus faecalis in urine. Speech working with patient - Starting to have oral intake. Continue wound vac for decubitus ulcer. 06/27/17 Little change. Oral intake with slight improvement. Nursing not reporting pain/ agitation. Continue Ampicillin for urinary coverage of Enterococcus faecalis. Coumadin restarted. Will give Lovenox 40mg SQ x1. Potassium with decrease to 2.9. Creatinine decrease to 1.2. Will give IV potassium boluses and then change IVF to D5W with 40KCl at 125cc /hr. Continue wound vac for decubitus ulcer. Oral intake as patient able. Blood pressure still low, but not seeing continued evidence for sepsis - can transfer to medical floor for continued care. 06/28 Continue Ampicillin (started 06/26) for urinary coverage of Enterococcus faecalis. Persistent Hypernatremia- Continue with IV fluids for hydration Wound vac and wound care as per recommendations Remains subtherapeutic- INR today 1.63 managed by pharmacy Recheck BMP and CBC tomorrow to follow blood counts, renal function and electrolytes 06/29/2017 I had a long talk with the patient's family including her daughter who is DPXAVI. I initially called on the phone and talked with her at length. I then spoke with her when she arrived to see her mom and then I spoke with her again after lab work revealed severe sepsis. I discussed with her her mom's worsening status with hypoxia, severe sepsis, and borderline hypotension. We currently have no ICU beds at [facility]. We discussed possible treatment including supple transfer to [facility] for ICU care if beds available versus keeping her in her current room on the medical floor and providing as aggressive of care as possible with limitations of being on the medical floor. After questions and concerns were answered, family did elect to keep the patient here at [facility] on the medical floor with the understanding that she is quite ill and her condition could worsen overnight. Roopa/TRINIDAD also decided for DO NOT RESUSCITATE. If over the next few days in ICU bed is available and it is thought the patient would benefit from ICU care they would like to consider transfer to ICU here at [facility]. If her condition worsens and she does not appear to be improving, at that time they might consider comfort care measures. Regarding severe sepsis will discontinue ampicillin which she was on for UTI with enterococcus and start Levaquin, vancomycin, and cefepime. Urine culture is pending. Chest x-ray is pending. Blood cultures are pending Fluid status is difficult to determine. I was concerned about pulmonary edema earlier today. Weight is up about 3-1/2 kg since admission. INR was +8.4 L. Earlier today with hypoxia and coarse wet breath sounds, Lasix 1 was given. Will await chest x-ray and may need to consider fluid bolus given her sepsis Consider adding bicarbonate to IV fluids for metabolic acidosis seen on basic metabolic profile. Continue wound VAC. Regarding nausea and vomiting, KUB was ordered. Reglan and Zofran were ordered. We'll change to DO NOT RESUSCITATE status per Roopa PHILLIP 07/01/17 After my initial visit with the patient this afternoon, the nurse notified me that she was concerned because of foul drainage from the patient's wound VAC that smelled like feces. I then did ask the wound and skin nurse to reevaluate the wound. She will remove the wound VAC and stated she was concerned for a possible enterocutaneous fistula and recommended surgical consultation. I did call and asked Dr. Keen to evaluate the patient's wound. I did stay in the room with him when he evaluated the wound. Unfortunately, she has a stage IV sacral pressure ulcer with infected and necrotic appearing tissue. In looking into the wound, one could unfortunately see her sacrum and the base of her spine which appeared yellowish brown and per Dr. Keen was soft. He was concerned for severe osteomyelitis. He did not think surgical treatment would be beneficial. He did recommend comfort care to the patient's daughter Roopa, who his DPOA. I then spoke with Roopa afterwards and we discussed esters multiple medical issues that she is facing at this time. We discussed the severe wound with apparent infection of her lumbar spine, sacrum and coccyx. Roopa has decided to consult hospice in the morning and will likely decided for comfort care with hospice at home. She would like to continue PPN for tonight. I did inform her that hospice was unlikely to continue IV nutrition at home. We'll consult case management in the morning to discuss hospice consultation. 07/02/17 Discussed with CM - family would like to visit with wound team to see what treatment options there are, and as of this morning, family is not yet ready to consult hospice. At this time will continue triple antibiotic therapy until further discussions with family. Patient would be appropriate for hospice care with combination of severe sepsis , multiple comorbid underlying diseases, need for PPN, dementia requiring full care, and now the Yariel Terminal Ulcer. 07/03/2017 I did talk with Fatimah's family about options for hospice. They have decided to proceed with hospice at home. I talked with case management and the hospice nurse. They will not be able to get a hospital bed to her house until tomorrow. We will initiate Roxanol and oral Ativan here to make sure this keeps Fatimah comfortable prior to discharge. Comfort care measures initiated last evening. 07/04/2017 The patient's DPOA/daughter Roopa had decided for hospice yesterday, but later in the day reconsidered and decided she wanted to proceed with antibiotics to "give her a chance to get better." I did resume antibiotics, IV fluids and lab monitoring last night at Roopa's request. Unfortunately, in the long run I do not think that we will be able to resolve or heal her osteomyelitis and large sacral wound, and I did inform Roopa of my opinion last night. This morning, labs showed low potassium and low phosphorus. These are being replaced IV. Sodium was elevated at 152. IV fluids were changed to D5W with potassium. We will recheck lab tomorrow. Vital signs are stable. At this time, the patient appears comfortable. 07/05/17 Marni RN from wound care & pt's RN both had discussion regarding Yariel Terminal Ulcer with Fatimah's son and daughter today. By the time I arrived to discuss further, they had already left. They indicated to nursing staff that they will discuss this finding amongst themselves and return later. I've asked the nurse to call me when they arrive. Medically, she is unable to take in anything orally and electrolytes are abnormal but slightly improved (Na 150, K 3.4, Ph 2.5) after IVF were changed yesterday. Vital signs are stable. However, with her significant morbidity and severe illness (severe sepsis, HCAP , UTI, now open non-treatable coccygeal ulcer), inability to maintain oral intake, ambulate, communicate effectively, etc., the hospitalist service recommends comfort care and hospice.
[2017-07-07] MEDS: POTASSIUM CHLORIDE INJ 20 MEQ in D5W 1,000 ML IV SCH (02:17)
[2017-07-07] MEDS: CEFEPIME 1 GM in NS 100 ML IV SCH (02:20)
[2017-07-07] MEDS: METOCLOPRAMIDE 10mg/2ml INJECTION IVP SCH ×2 (04:19→12:11)
[2017-07-07 09:28] VITALS: BP 106/64; PULSE 92; RESP 28; TEMP 98.6; O2SAT 95
[2017-07-07] MEDS: ZONISAMIDE 100 MG CAPSULE PO SCH (09:32)
[2017-07-07] MEDS: SALINE FLUSH 10ml SYRINGE IVF PRN ×2 (10:00→12:14)
[2017-07-07] MEDS: PANTOPRAZOLE 40 MG INJECTION IVP SCH (10:00)
== END 2017-07-07 12:45 | disposition hospice, home (50) | DRG 871 ==
LOC: ED 14:09 → SUATTDRO 18:00 → CCU 18:00 → MED 06-27 19:02
PROVIDERS: ADMIT Hospitalist; ATTEND Family Medicine